=== PATIENT | female | born 1965 | race Caucasian/White ===

== ENCOUNTER → 2016-09-07 | Outpatient (CLI) | payer BC | END | disposition home or self-care (01) | LOC: LABPAT 12:04 | PROVIDERS: ATTEND Orthopaedic Surgery | DX: Z01.812 Encounter for preprocedural laboratory examination (principal) | CPT/HCPCS: 87070 ==

== ENCOUNTER → 2017-01-06 | Outpatient (CLI) | payer BC ==
[2017-01-06 18:21] LABS: Non-African American GFR(MDRD) 58 (>60 ml/min/1.73 sqM)
--- NOTE | 2017-01-06 20:49 | MR ---
EXAMINATION TYPE: MR brain wo/w con DATE OF EXAM: 01/06/2017 COMPARISON: Prior MRI 05/05/2016 HISTORY: Multiple Sclerosis TECHNIQUE: Multiplanar, multisequence images of the brain and brainstem is performed without and with IV contras t, utilizing 20 mL intravenous MultiHance . FINDINGS: Diffusion weighted images demonstrate no evidence of a recent infarct or other diffusion ab normality. There is no extra-axial fluid collection. Scattered white matter hyperintensities are ag ain noted as on prior exam. The ventricular system and cisternal spaces are normal in size and appear ance. The brain volume is age appropriate. Midline structures demonstrate normal morphology. The craniocervical junction appears within normal limits. Post contrast images demonstrate no abnormal enhancement. The dural venous sinuses appear pa tent. The visualized sinuses are clear and the globes are intact. Inflammatory change present within the left mastoid air cells is again noted. IMPRESSION: White matter demyelination is stable as compared to prior exam.
== END | disposition home or self-care (01) ==
LOC: RADMRIMAIN 17:30
PROVIDERS: ATTEND Psychiatry & Neurology Neurology
DX: G35 Multiple sclerosis (principal); G37.9 Demyelinating disease of central nervous system, unspecified
CPT/HCPCS: 82565; 70553; 36415; A9577

== ENCOUNTER → 2017-01-25 | Outpatient (CLI) | payer BC | END | disposition home or self-care (01) | LOC: LABPAT 15:52 | PROVIDERS: ATTEND Orthopaedic Surgery | DX: Z01.812 Encounter for preprocedural laboratory examination (principal) | CPT/HCPCS: 87070 ==

== ENCOUNTER 2017-01-31 09:04 | Inpatient (IN) | payer BC ==
[2017-01-24 17:21] VITALS: BMI 40.7
--- NOTE | 2017-01-30 09:26 | HP ---
HISTORY AND PHYSICAL CHIEF COMPLAINT: Right knee pain. 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 She is having pain with her normal activities. It does limit her. She has tried previous medications, injections, in addition has had previous arthroscopy on the right knee. PAST MEDICAL HISTORY: Significant for hypertension, hypothyroidism, multiple sclerosis, reflux disease, asthma. CURRENT MEDICATIONS: 1. Hydrochlorothiazide. 2. Prilosec. 3. Synthroid. 4. Wellbutrin. 5. Zoloft. 6. Copaxone. 7. Claritin. ALLERGIES: She denies drug allergies. FAMILY HISTORY: Significant for cancer. SOCIAL HISTORY: Significant for social alcohol use. REVIEW OF SYSTEMS: Sixteen-point review of systems otherwise reviewed and is noncontributory. PHYSICAL EXAMINATION: On examination, the patient is approximately 5 feet 3 inches, 230 pounds of endomorphic habitus. HEENT exam is nonfocal. Neck is supple. She has painless passive motion of the right hip. Straight leg raise is negative. Active motion right knee is -6 to 130 degrees of flexion. She is tender about the medial joint line. Collaterals are stable, Cristian's negative, Shekhar's is equivocal. She has genu varum alignment. Her distal neurovascular exam appears intact in the right lower extremity. X-rays to include weightbearing notch, lateral and Merchant views of the right knee obtained in the office show severe medial compartment narrowing. IMPRESSION: 1. Right knee severe medial compartment osteoarthrosis. 2. Increased body mass index. 3. Multiple sclerosis. RECOMMENDATIONS: I talked to the patient at length regarding her treatment options. At this point, she is having persistent pain and limitation because of her osteoarthrosis despite conservative measures. After thorough discussion, she opts to proceed with surgery. We will plan to proceed with right total knee arthroplasty. Risks and benefits were discussed at length in layman's terms. The patient underwent preoperative medical evaluation by Dr. Crow. BUD / HARVINDER: [id number] /
[~2017-01-31 09:04] MED LIST: ACETAMINOPHEN TAB 500 MG TAB PO ONE; DEXAMETHASONE SOD PHOSPHATE 10 MG/ML 1 ML VIAL IV ONE; MELOXICAM 7.5 MG TAB PO ONE; MIDAZOLAM 2 MG/2 ML VIAL IV PRN; ONDANSETRON 4 MG/2 ML VIAL IVP ONE; SCOPOLAMINE 1.5MG/72HR PATCH TRANSDERM ONE; TRANEXAMIC ACID 1,000 MG in SODIUM CHLORIDE 0.9% 100 ML IVPB ONE; ceFAZolin 2 GM in SODIUM CHLORIDE 0.9% 100 ML IVPB ONE
[2017-01-31] MEDS ORDERED: LIDOCAINE 1% 20 ML VIAL (10MG/ML) FOR IV START INTRADERMA ONE (10:07)
[2017-01-31] MEDS: LACTATED RINGERS 1,000 ML IV SCH (10:08)
[2017-01-31] MEDS ORDERED: ROPIVACAINE 246.25 MG, EPINEPHrine 0.5 MG, KETOROLAC 30 MG, cloNIDine HCL/PF 80 MCG, WA... MISCELLANE ONE ×5 (10:49)
[2017-01-31] MEDS ORDERED: fentaNYL (PF) 50 MCG/ML 2 ML AMP ONE (11:55)
[2017-01-31] MEDS ORDERED: ROCURONIUM BROMIDE 10 MG/ML 10 ML VIAL IV ONE (11:55)
[2017-01-31] MEDS ORDERED: TRANEXAMIC ACID 1,000 MG/10 ML VIAL ONE (11:55)
[2017-01-31] MEDS ORDERED: GLYCOPYRROLATE 0.2 MG/ML 2 ML VIAL ONE (11:55)
[2017-01-31] MEDS ORDERED: SODIUM CHLORIDE 0.9% 100 ML BAG ONE (11:55)
[2017-01-31] MEDS ORDERED: HYDROmorphone (PF) 1 MG/ML ONE (11:55)
[2017-01-31] MEDS ORDERED: PROPOFOL 10 MG/ML 20 ML VIAL IV ONE (11:55)
[2017-01-31] MEDS ORDERED: LIDOCAINE 1% INJ 10MG/ML (20 ML MDV) ONE (11:55)
[2017-01-31] MEDS ORDERED: MIDAZOLAM 2 MG/2 ML VIAL ONE (11:55)
[2017-01-31] MEDS ORDERED: NEOSTIGMINE 1 MG/ML 10 ML VIAL ONE (11:55)
[2017-01-31] MEDS ORDERED: ceFAZolin 3,000 MG in SODIUM CHLORIDE 0.9% IRRIGATIO 3,000 ML IRRIGATION ONE (12:29)
[2017-01-31] MEDS ORDERED: LACTATED RINGERS 1,000 ML IV ONE (13:22)
[2017-01-31] MEDS ORDERED: ALBUTEROL NEBULIZED 2.5 MG/3 ML INHALATION ONE (14:05)
[2017-01-31] MEDS ORDERED: HYDROmorphone 1 MG/ML 1 ML SYRINGE IVP PRN (14:06)
[2017-01-31] MEDS ORDERED: HYDROcodone/APAP 7.5-325MG 1 EACH TAB PO PRN (14:06)
[2017-01-31] MEDS ORDERED: ONDANSETRON 4 MG/2 ML VIAL IVP PRN (14:06)
[2017-01-31] MEDS ORDERED: NALOXONE 0.4 MG/ML 1 ML VIAL IV PRN (14:06)
[2017-01-31] MEDS ORDERED: MAGNESIUM HYDROXIDE 2,400 MG/10 ML CUP PO PRN (14:06)
[2017-01-31] MEDS: HYDROmorphone 1 MG/ML 1 ML SYRINGE IVP PRN ×3 (14:09→14:30)
--- NOTE | 2017-01-31 15:01 | XR ---
Right knee HISTORY: Postop right knee 2 views of the right knee Patient is status post right knee arthroplasty. There is an indwelling drain. Alignment is maintained . Lucency present in the soft tissues. IMPRESSION: Orthopedic follow-up.
[2017-01-31] MEDS: HYDROcodone/APAP 7.5-325MG 1 EACH TAB PO PRN (18:10)
[2017-01-31] MEDS ORDERED: ALPRAZolam 0.5 MG TAB PO PRN (19:14)
[2017-01-31] MEDS ORDERED: FLUTICASONE 50MCG/SPRAY NASAL 16GM EA NOSTRIL PRN (19:14)
[2017-01-31] MEDS: SYMBICORT 160-4.5 MCG INHALER INHALATION SCH (19:35)
[2017-01-31] MEDS: PANTOPRAZOLE 40 MG TABLET PO SCH (20:19)
[2017-01-31] MEDS: SENNOSIDES-DOCUSATE SODIUM 1 EACH TAB PO SCH (20:19)
[2017-01-31] MEDS: LISINOPRIL-HCTZ 10-12.5 MG 1 EACH TAB PO SCH (20:19)
[2017-01-31] MEDS: SERTRALINE 50 MG TAB PO SCH (20:19)
[2017-01-31] MEDS: ceFAZolin 2 GM in SODIUM CHLORIDE 0.9% 100 ML IVPB SCH (20:19)
[2017-01-31] MEDS: IPRATROPIUM-ALBUTEROL 3 ML NEB INHALATION SCH (21:28)
[2017-01-31] MEDS: traZODone HCL 50 MG TAB PO SCH (22:41)
[2017-02-01] MEDS: HYDROcodone/APAP 7.5-325MG 1 EACH TAB PO PRN ×4 (01:29→21:50)
[2017-02-01] MEDS: LACTATED RINGERS 1,000 ML IV SCH ×2 (02:23→22:44)
[2017-02-01] MEDS: HYDROmorphone 1 MG/ML 1 ML SYRINGE IVP PRN ×2 (03:45→19:16)
[2017-02-01] MEDS: ceFAZolin 2 GM in SODIUM CHLORIDE 0.9% 100 ML IVPB SCH (03:47)
[2017-02-01] MEDS: LEVOTHYROXINE 88 MCG TAB PO SCH (05:11)
[2017-02-01] MEDS: IPRATROPIUM-ALBUTEROL 3 ML NEB INHALATION SCH ×3 (06:59→19:56)
[2017-02-01] MEDS: SYMBICORT 160-4.5 MCG INHALER INHALATION SCH (07:00)
--- NOTE | 2017-02-01 07:37 | OP ---
OPERATIVE REPORT DATE OF PROCEDURE: 01/31/2017 PREOPERATIVE DIAGNOSIS: Severe right knee tricompartmental osteoarthrosis. POSTOPERATIVE DIAGNOSIS: Severe right knee tricompartmental osteoarthrosis. PROCEDURE: Right total knee opfgerimevdw-ficwgpvn-nulzqlvmv stabilized. SURGEON: Luis Colon MD SPANISH MEDICAL INTERPRETER: Raimundo VARGAS. ANESTHESIA: General with local anesthetic. PREP: DuraPrep. INDICATION FOR PROCEDURE: Patient is a 52-year-old female who presents with persistent, progressive right knee pain secondary to osteoarthrosis despite extensive conservative measures. A discussion of the risks and benefits of operative intervention versus continued conservative measures is made with the patient. She opted to proceed with surgery. Operative risks to include infection, neurovascular injury, development of blood clots, possible component loosening, possible component failure, and need for subsequent procedures was discussed. Informed consent was obtained. SPECIMENS: Bone fragments. PROCEDURE: The patient was brought to the operating room and after induction of general anesthesia, the right lower extremity was prepped and draped in a normal fashion. The tourniquet was inflated to 270 mmHg. A longitudinal incision extending 3 fingerbreadths above the superior pole of patella extending to the medial aspect of the tibial tubercle was then made. The skin and subcutaneous tissues were divided sharply. Electrocautery was used for hemostasis. A medial parapatellar arthrotomy was performed. The medial soft tissues to include the superficial and deep portions of the medial collateral ligament as well as the medial hamstring tendons were elevated subperiosteally. The patella was everted. A portion of the retropatellar fat pad was excised sharply. The knee was flexed. The anterior cruciate ligament was sacrificed. A starting hole was made in the distal femur 1 cm anterior to the posterior cruciate ligament origin. An intramedullary femoral guide was inserted, planning on 5 degrees valgus distal cut with a 9 mm distal resection. The cutting block was pinned in place. The distal cut was then made. The posterior referencing sizing guide was utilized. I felt size 5 narrow was most appropriate. The cutting block was pinned in place. Three degrees of external rotation was built into the system and verified off the transepicondylar axis and the posterior condyles. The anterior, posterior, and chamfer cuts were then made. The bone fragments were then removed. The notch block was placed. The notch cut was made with a reciprocating saw and the bone block was moved to 1 fragment. The size 5 narrow femoral component was placed and was fully seated. There was good anterior to posterior and medial to lateral fit. The distal pedicles were drilled. Attention was then paid towards preparing the proximal tibia. An extramedullary tibial guide was utilized in line with the tibia shaft and second metatarsal distally. I plan on 3 degrees of posterior slope. I planned on 2 mm resection from the medial compartment. The cutting block was pinned in place. The proximal tibia cut was then made. The bone fragment was removed in one piece. The remnants of the medial and lateral menisci were excised at the capsular junction with electrocautery. The tibia size most appropriate at size 4. The trial tibial and femoral components were placed along with a 9 mm articular surface. I was able to obtain full flexion and extension with good stability with varus and valgus stress. The tibial rotation was marked in line with the medial one-third of the tibial tubercle with electrocautery. Attention was then paid towards preparing the patella. A patellar reamer was utilized taking this down to 14 mm of bone stock. A good flush cut was made. The patella sized most appropriately at 32 mm. The pedicles were drilled. The trial component was placed. The knee was taken through range of motion. I had good patellofemoral tracking with no hands technique. The trial components were then removed. The tibia was prepared in the appropriate rotation with appropriate drill and keel punch. The posterior osteophytes of the distal femur were carefully removed with a curved osteotome. Several additional drill holes were made in the proximal medial tibia to facilitate cement interdigitation. The flexion and extension gaps were checked and felt to be symmetric. The posterior soft tissues were injected with ropivacaine. The bony surfaces were prepared with pulsatile lavage and dried. The tibial component was then cemented, placed and was fully seated. Excess cement was removed. The femoral component was cemented, placed and fully seated. Excess cement was removed. A 9 mm articular surface was placed and the knee was put in full extension. The patellar component cemented in place and was fully seated. After the cement had sufficiently hardened, the knee was again taken through range of motion. Again, I had good stability with varus and valgus stress and was able to obtain full flexion and extension. The trial articular surface was removed and the final 9 mm posterior stabilized articular surface was placed. This was fully seated. Care was taken to avoid any soft tissue interposition. Pulsatile lavage was again utilized. The medial parapatellar arthrotomy was closed with #2 Ethibond suture. The tourniquet was deflated with approximately 1 hour total tourniquet time. A deep drain was placed exiting laterally. The subcutaneous tissues were reapproximated with interrupted 2 Vicryl sutures. The skin was reapproximated with 3-0 subcuticular Stratafix suture. Skin tape and adhesive was applied. A sterile dressing was applied. The patient was awoken from general anesthesia and transferred to the recovery room in good condition. Blood loss was estimated at 50 mL. No complications were incurred. Sponge and needle counts were correct at the end of the case. IMPLANTS USED: DePuy Wedge Busterune size 5 cemented femoral component, size 4 cemented tibial component, 9 mm articular surface, 32 mm cemented patellar component. This is a posterior stabilized implant. MMODL / IJN: [id number] /
[2017-02-01 07:46] LABS: Basophils % (A) 0 %; CH 26.6; CHCM 32.5; Eosinophils # (A) 0.2 k/uL (0-0.7); Eosinophils % (A) 1 %; HCT 30.1 % (34.0-46.0); HDW 2.52; HGB 9.7 gm/dL (11.4-16.0); Luc # (Auto) 0.21; Luc % (Auto) 2; Lymphocytes # (A) 2.1 k/uL (1.0-4.8); Lymphocytes % (A) 18 %; MCH 26.5 pg (25.0-35.0); MCHC 32.2 g/dL (31.0-37.0); MCV 82.3 fL (80.0-100.0); Mean Platelet Volume 9.9; Monocytes # (A) 0.8 k/uL (0-1.0); Monocytes % (A) 6 %; Neutrophils # (A) 8.6 k/uL (1.3-7.7); Neutrophils % (A) 72 %; RBC 3.65 m/uL (3.80-5.40); RDW 14.8 % (11.5-15.5); WBC 11.9 k/uL (3.8-10.6); WBC (Perox) 12.47
[2017-02-01] MEDS ORDERED: FAMOTIDINE 20 MG TAB PO SCH (09:00)
[2017-02-01] MEDS: PANTOPRAZOLE 40 MG TABLET PO SCH ×2 (09:05→17:27)
[2017-02-01] MEDS: LORATADINE 10 MG TAB PO SCH (09:06)
[2017-02-01] MEDS: RIVAROXABAN 10 MG TAB PO SCH (09:06)
[2017-02-01] MEDS: hydrOXYzine PAMOATE 25 MG CAP PO PRN ×3 (09:07→21:50)
--- NOTE | 2017-02-01 09:07 | CONS ---
CONSULTATION DATE OF CONSULTATION: 01/31/17 REASON FOR CONSULTATION: Medical management requested by Dr. Colon. CONSULTATION: This is a pleasant 52-year-old patient who has got a history of multiple sclerosis that is under control. Anxiety depression that is controlled and has a history of COPD with smoking on and off. Currently during E cigarettes. The patient is status post right total knee arthroplasty. Patient has got a Hemovac in place. Pain is controlled. No nausea, vomiting, no chest pain. The patient's mother and at the bedside. REVIEW OF SYSTEMS: CONSTITUTIONAL: None. HEENT none. Respiratory: Occasional wheezing and cough. Cardiovascular: None. Gastrointestinal: None. Genitourinary: None. Omrris catheter in place. Dermatological, hematologic, lymphatic: None. Psychiatry: Anxiety and depression. Neurological: Emesis controlled. PAST MEDICAL HISTORY: COPD, multiple sclerosis, anxiety and depression, osteoarthritis. PAST SURGICAL HISTORY: Cholecystectomy, hernia repair. Wrist surgery, right knee surgery. SOCIAL HISTORY: The patient smoked on and off for 30 years. Now uses E cigarettes. Lives with her . FAMILY HISTORY: Cancer. MEDICATIONS: 1. Desyrel 50, 75 mg p.o. q.h.s. 2. Wellbutrin XL 150 mg a day. 3. Zoloft 50 mg q.h.s. 4. Dulera 200/5 2 puffs b.i.d. 5. Magnesium oxide 250 mg a day. 6. Zestoretic 03/02.5, 1 tab, p.o. q.h.s. 7. Synthroid 125 mcg p.o. daily. 8. Prevacid 30 mg p.o. b.i.d. 9. 40 mg subcu Monday, Monday and Monday. 10.Flonase 2 sprays each nostril daily p.r.n. 11.Ruthy 180 mg p.o. daily. 12.Vitamin D3 5000 units p.o. daily. 13.Aspirin 81 mg p.o. q.h.s. 14.Ventolin 2 puffs b.i.d. p.r.n. 15.Xanax 0.5 p.o. b.i.d. p.r.n. 16.Xarelto 10 mg p.o. daily. ALLERGIES: None. EXAMINATION: On examination, temperature 97.3, pulse 89, respiratory rate 16, blood pressure 130/81, pulse ox 92% on 2 L. GENERAL: Well built, BMI 40.7, sitting up, not in distress. EYES: Pupils equal, conjunctivae normal. HEENT: Oral cavity normal. Neck: JVD not raised. Mass not palpable. Respiratory effort: Lungs slightly decreased breath sounds. Cardiovascular first and second sounds normal. No edema. ABDOMEN: Soft, nontender. Liver and spleen not palpable. Lymphatics: No lymph nodes palpable in the neck or axilla. Psychiatry: The patient is able to converse but sometimes she is rather really vague about things. Neurological: Pupils equal. Cranial nerves grossly intact. Power and sensation grossly intact. Extremities: Right knee in a dressing. Hemovac in place. INVESTIGATIONS: No labs noted. ASSESSMENT: 1. Right total knee arthroplasty with a Hemovac in place. 2. Chronic multiple sclerosis, rather stable. 3. Anxiety/depression not otherwise specified. 4. Primary osteoarthritis of the joints including the left knee. 5. Morbid obesity. Body mass index of 40.7. 6. Hypothyroidism. PLAN: Home medication will be resumed. The patient is on Xarelto for DVT prophylaxis. Care was discussed with the patient and family at the bedside. Questions were answered. Thank you Dr. Colon. BUD / GIOVANNAN: [id number] /
[2017-02-01] MEDS: buPROPion XL 150 MG TAB.ER.24H PO SCH (09:10)
--- NOTE | 2017-02-01 11:52 | P.PN ---
Subjective Principal diagnosis: Status post right total knee arthroplasty Patient is seen today resting in her hospital bed, she appears comfortable. She notes some discomfort in the right knee. She denies any lightheadedness, headaches, chest pain, shortness of breath, fever or chills. Objective - Vital Signs Vital signs: Vital Signs Temp 97.6 F 02/01/17 11:31 Pulse 60 02/01/17 11:31 Resp 17 02/01/17 11:31 BP 114/58 02/01/17 11:31 Pulse Ox 96 02/01/17 11:31 Intake & Output 01/31/17 02/01/17 02/01/17 18:59 06:59 18:59 Intake Total 1851 100 Output Total 440 2250 450 Balance 1411 -2150 -450 Intake: IV 1851 Intake, IV Titration 100 Amount ceFAZolin 2 gm In Sodium 100 Chloride 0.9% 100 ml @ 100 mls/hr IVPB Q8H PENDING SALE TO [facility] Rx#:[id number] Output: Drainage 90 250 Right Knee 90 250 Urine 300 2000 450 Uretheral (Morris) 450 Estimated Blood Loss 50 Other: Voiding Method Indwelling Catheter Indwelling Catheter - Exam Right lower extremity: Incision is clean, dry, and intact. Minimal soft tissue swelling present around the knee. Calf is soft, no tenderness with palpation. Plantar flexion, dorsiflexion, EHL, FHL are intact. Sensory exam to light touch throughout the extremities intact, dorsal pedis pulses 2+. - Labs CBC & Chem 7: 02/01/17 06:35 Labs: Abnormal Lab Results - Last 24 Hours (Table) 02/01/17 Range/Units 06:35 WBC 11.9 H (3.8-10.6) k/uL RBC 3.65 L (3.80-5.40) m/uL Hgb 9.7 L (11.4-16.0) gm/dL Hct 30.1 L (34.0-46.0) % Neutrophils # 8.6 H (1.3-7.7) k/uL Assessment and Plan Plan: Assessment: 1. Postop day #1 status post right total knee arthroplasty Plan: 1. Pain control, continue use of oral medication 2. Daily dressing changes/ice and elevate 3. Continue therapy and use of CPM 4. Encourage incentive spirometer 5. GI and DVT prophylaxis, continue Xarelto 10 mg 6. Medical recommendations 7. Discharge planning: Patient may be discharged home today, likely tomorrow Time with Patient: Less than 30
--- NOTE | 2017-02-01 11:54 | P.DS ---
Providers Date of admission: 01/31/17 09:04 Expected date of discharge: 02/02/17 Attending physician: Luis Colon Consults: 01/31/17 14:09 Consult Physician Routine Consulting Provider: Anthony Mccain Consult Reason/Comments: Medical Management Do you want consulting provider notified?: Yes Primary care physician: Stated None Hospital Course: Date of admission: 01/31/2017 Date of discharge: [02/02/2015 Admission diagnosis: Status post right total knee arthroplasty Discharge diagnosis: Same Attending physician: Dr. Colon Surgical procedures: Right total knee arthroplasty Brief history: Patient is a 52-year-old female with a history of progressive primary right knee osteoarthritis. At this point patient has failed conservative treatment measures and has opted to proceed with a elective right total knee arthroplasty. Hospital course: Details of patient's surgery can be found in operative report. Patient tolerated the procedure well and was subsequently transported to orthopedic floor. Patient's orthopeidc and medical care was provided daily. Patient had daily laboratory tests performed for evaluation of overall blood counts. Patient had daily physical therapy to include strengthening range of motion as well as education with walker ambulation. Patient had daily CPM usage as part of their physical therapy program. Patient was treated with Xarelto for their postoperative DVT prophylaxis during their inpatient stay. Patient was noted to have a relatively uneventful postoperative course. Patient reported satisfactory pain control with oral pain medications by postoperative day 0. Patient showed satisfactory progress with physical therapy. Patient moved steadily through the program and had no difficulty meeting the goals by postoperative day 2. Given patient's otherwise satisfactory course and having met physical therapy goals, plan is to discharge patient home on postoperative day 2. Discharge condition/disposition: Patient will be discharged home in stable condition. Discharge medications: Instructions are given on resumption of patient's normal daily medications per primary care recommendation, in addition patient will be prescribed [place] 7.5mg/325mg, Tramadol 50mg, Vistaril 25mg, Colace 100mg, Pepcid 20mg, Xarelto 10mg. Discharge instructions: 1. Wound care and infection precautions, [keep incision dry and covered while showering], no lotions, creams, moisturizers. No soaking, tubs, pools, hottubs. Do not scrub over the incision. 2. Weight-bear [as tolerated] with walker / cane until follow-up. 3. Ice and elevate when necessary. Do not exceed 20 minutes per hour with ice pack. 4. Utilize compression sleeve until seen at first follow up appointment. 5. Visiting nursing care. 6. Home physical therapy [including home CPM]. 7. Pain meds and anticoagulants per prescription. 8. Pain medication has potential to cause constipation. Increase oral fluid and fiber intake. Contact primary care provider if you have not had a bowel movement within 48 hours after discharge 9. No anti-inflammatory medication until discussed at first post operative visit, this including Motrin, Aleve, Mobic, Diclofenac. 10. Follow up in office at 2 weeks postop with Wilbur Russ PA-C 11. Follow up with your primary care doctor 7-10 days after discharge. 12. Contact [facility] with any questions, . Procedures: Right total knee arthroplasty Patient Condition at Discharge: Good Plan - Discharge Summary New Discharge Prescriptions: New Rivaroxaban [Xarelto] 10 mg PO DAILY #12 tab Docusate [Colace] 100 mg PO DAILY #30 capsule Famotidine [Pepcid] 20 mg PO DAILY #30 tablet HYDROcodone/APAP 7.5-325MG [[place] 7.5] 1 - 2 each PO Q6HR PRN #60 tab PRN Reason: Pain hydrOXYzine PAMOATE [Vistaril] 25 mg PO Q6HR #60 capsule traMADol HCl [Ultram] 50 mg PO Q6H PRN #40 tab PRN Reason: Pain No Action traZODone HCL [Desyrel] 50 - 75 mg PO HS ALPRAZolam 0.5 mg PO BID PRN PRN Reason: Anxiety buPROPion XL [Wellbutrin XL] 150 mg PO DAILY Mometasone/Formoterol [Dulera 200 Mcg/5 Mcg Inhaler] 2 puff INHALATION RT-BID Albuterol Sulfate [Ventolin HFA] 2 puff INHALATION BID PRN PRN Reason: Shortness Of Breath Sertraline HCl [Zoloft] 50 mg PO HS Lisinopril-Hctz 10-12.5 mg [Zestoretic 10-12.5] 1 tab PO HS Levothyroxine Sodium [Synthroid] 175 mcg PO DAILY Lansoprazole [Prevacid] 30 mg PO BID Cholecalciferol [Vitamin D3] 5,000 unit PO DAILY Magnesium Oxide [Mag-Ox] 250 mg PO DAILY Fexofenadine HCl [Ruthy Allergy] 180 mg PO DAILY Glatiramer Acetate [Copaxone] 40 mg SQ MOWEFR Fluticasone Nasal [place] [Flonase Nasal [place]] 2 spr EA NOSTRIL DAILY PRN PRN Reason: allergy sx Aspirin [Adult Low Dose Aspirin EC] 81 mg PO HS Discharge Medication List ALPRAZolam 0.5 mg PO BID PRN 09/26/15 [History] Albuterol Sulfate [Ventolin HFA] 2 puff INHALATION BID PRN 09/26/15 [History] Mometasone/Formoterol [Dulera 200 Mcg/5 Mcg Inhaler] 2 puff INHALATION RT-BID [History] buPROPion XL [Wellbutrin XL] 150 mg PO DAILY 09/26/15 [History] traZODone HCL [Desyrel] 50 - 75 mg PO HS 09/26/15 [History] Sertraline HCl [Zoloft] 50 mg PO HS 09/29/15 [History] Levothyroxine Sodium [Synthroid] 175 mcg PO DAILY 03/31/16 [History] Lisinopril-Hctz 10-12.5 mg [Zestoretic 10-12.5] 1 tab PO HS 03/31/16 [History] Aspirin [Adult Low Dose Aspirin EC] 81 mg PO HS 01/24/17 [History] Cholecalciferol [Vitamin D3] 5,000 unit PO DAILY 01/24/17 [History] Fexofenadine HCl [Ruthy Allergy] 180 mg PO DAILY 01/24/17 [History] Fluticasone Nasal [place] [Flonase Nasal [place]] 2 spr EA NOSTRIL DAILY PRN [History] Glatiramer Acetate [Copaxone] 40 mg SQ MOWEFR 01/24/17 [History] Lansoprazole [Prevacid] 30 mg PO BID 01/24/17 [History] Magnesium Oxide [Mag-Ox] 250 mg PO DAILY 01/24/17 [History] Rivaroxaban [Xarelto] 10 mg PO DAILY #12 tab 01/31/17 [Rx] Docusate [Colace] 100 mg PO DAILY #30 capsule 02/01/17 [Rx] Famotidine [Pepcid] 20 mg PO DAILY #30 tablet 02/01/17 [Rx] HYDROcodone/APAP 7.5-325MG [[place] 7.5] 1 - 2 each PO Q6HR PRN #60 tab 02/01/17 [ Rx] hydrOXYzine PAMOATE [Vistaril] 25 mg PO Q6HR #60 capsule 02/01/17 [Rx] traMADol HCl [Ultram] 50 mg PO Q6H PRN #40 tab 02/01/17 [Rx] Follow up Appointment(s)/Referral(s): Raimundo Russ PAC [PHYSICIAN PHOTOGRAMMETRIC SURVEYOR] - 02/17/17 1:30 pm None,Stated [Primary Care Provider] - 10 Days (Please call your Primary Care Provider for follow up appointment. Thank you.) Beto Lamb, [REFERRING] - Patient Instructions/Handouts: Knee Replacement (DC) Activity/Diet/Wound Care/Special Instructions: Walker Through [facility] [phone] Orthopedic Discharge Instructions: 1. Wound care and infection precautions, keep incision dry and covered while showering, no lotions, creams, moisturizers. No soaking, pools, hot tubs. Do not scrub over incision. 2. Weight-bear as tolerated with walker / cane until follow-up. 3. Ice and elevate when necessary. Do not exceed 20 minutes per hour with ice pack. 4. Utilize compression sleeve until seen at first follow up appointment. 5. Visiting nursing care. 6. Home physical therapy including home CPM. 7. Pain meds and anticoagulants per prescription. 8. Pain medication has potential to cause constipation. Increase oral fluid and fiber intake. Contact primary care provider if you have not had a bowel movement within 48 hours after discharge. 9. No anti-inflammatory medication until discussed at first post operative visit, this including Motrin, Aleve, Mobic, Diclofenac. 10. Follow up in office at 2 weeks postop with Wilbur Russ PA-C 11. Follow up with your primary care doctor 7-10 days after discharge. 12. Contact [facility] with any questions, . Discharge Disposition: HOME WITH HOME HEALTH SERVICES
[2017-02-01] MEDS: MAGNESIUM OXIDE 400 MG TAB PO SCH (13:13)
[2017-02-01] MEDS: CHOLECALCIFEROL 1,000 UNIT TAB PO SCH (13:13)
--- NOTE | 2017-02-01 14:49 | P.PN ---
Progress Note - Text DATE OF SERVICE: 02/01/2017 PRESENTING COMPLAINT: Osteoarthritis of the right knee HISTORY OF PRESENT ILLNESS: 52-year-old female status post right total knee arthroplasty. INTERVAL HISTORY: 02/01/2017: Patient up with a walker with physical therapy, getting around well. Tolerating her diet eating 75 -100% of her meals, pains well controlled, ambulatory with assistance and walker,last BM, prior to surgery. REVIEW OF SYSTEMS: Done for constitutional ,cardiovascular, GI, pulmonary, musculoskeletal, integument with relevant findings as above. CURRENT MEDICATIONS [place], Xanax, Wellbutrin 150 mg by mouth daily, budesonide formoterol 160/4.5 g inhaler, Zestoretic 10-12.5 mg by mouth at bedtime, Vistaril 25 mg by mouth every 4 hours, Synthroid 176 g by mouth daily - PHYSICAL EXAM VITAL SIGNS: Temp temperature 98.3, pulse 77, respiratory rate 14, blood pressure 114/58, oxygen saturation 96% on room air. GENERAL APPEARANCE: Up with physical therapy, not in distress. EYES: Pupils equal. Conjunctiva normal. NECK: JVD not raised. Mass not palpable. RESPIRATORY: Respiratory effort normal. Lungs clear to auscultation. CARDIOVASCULAR: First and second sounds normal. No edema. ABDOMEN: Soft. Liver and spleen not palpable. No tenderness. No mass palpable. PSYCHIATRY: Alert and oriented x3. Mood and affect normal. INTEGUMENT: Right knee incision covered with a dry surgical dressing. Mild swelling noted INVESTIGATIONS: White blood cell count 11.9, hemoglobin 9.7 ASSESSMENT: -right total knee arthroplasty with Hemovac in place. -Chronic multiple sclerosis, stable. -Anxiety/depression not otherwise specified. -Primary osteoporosis of joints including the left knee. -Morbid obesity. Body mass index of 40.7. -Hypothyroidism. PLAN: Xarelto for DVT prophylaxis, Hemovac to be removed by orthopedic surgery later today, patient will likely discharge today. PLACER MINER statement: Patient was seen and examined by nurse practitioner Mary Soto and all elements of the case discussed with attending Dr. Mccain
--- NOTE | 2017-02-01 17:13 | PN ---
PROGRESS NOTE DATE OF SURGERY: 02/01/17 ATTENDING NOTE: This patient was seen and examined by me. I discussed this with my nurse practitioner, Ms. Soto. The patient's pain is better controlled. Did work with therapy. No chest pain or short of breath. No nausea. Did tolerating a diet. PHYSICAL EXAMINATION: Lungs are clear. CARDIOVASCULAR: First and second sounds normal. INVESTIGATION: Hemoglobin 9.7. ASSESSMENT: 1. Right total knee arthroplasty. 2. Acute blood-loss anemia as expected from surgery. PLAN: Care was discussed with the patient. MMODL / IJN: [id number] /
[2017-02-01] MEDS ORDERED: Glatiramer Acetate [Copaxone] 40 MG SQ SCH (18:00)
[2017-02-01] MEDS: DULERA INHALATION SCH (19:17)
[2017-02-01] MEDS: SENNOSIDES-DOCUSATE SODIUM 1 EACH TAB PO SCH (20:41)
[2017-02-01] MEDS: SERTRALINE 50 MG TAB PO SCH (20:41)
[2017-02-01] MEDS: LISINOPRIL-HCTZ 10-12.5 MG 1 EACH TAB PO SCH (20:41)
[2017-02-01] MEDS: traZODone HCL 50 MG TAB PO SCH (20:46)
[2017-02-02] MEDS: traMADol 50 MG TAB PO PRN ×3 (00:19→14:14)
[2017-02-02 01:48] VITALS: RESP 16
[2017-02-02] MEDS: HYDROcodone/APAP 7.5-325MG 1 EACH TAB PO PRN ×2 (04:56→11:00)
[2017-02-02] MEDS: hydrOXYzine PAMOATE 25 MG CAP PO PRN ×2 (04:57→11:00)
[2017-02-02] MEDS: LEVOTHYROXINE 88 MCG TAB PO SCH (05:51)
[2017-02-02 07:45] VITALS: BP 123/75; PULSE 67; TEMP 97.6
[2017-02-02] MEDS: DULERA INHALATION SCH (07:54)
[2017-02-02] MEDS: IPRATROPIUM-ALBUTEROL 3 ML NEB INHALATION SCH ×2 (07:57→12:53)
[2017-02-02] MEDS: LORATADINE 10 MG TAB PO SCH (08:19)
[2017-02-02] MEDS: buPROPion XL 150 MG TAB.ER.24H PO SCH (08:19)
[2017-02-02] MEDS: RIVAROXABAN 10 MG TAB PO SCH (08:19)
[2017-02-02] MEDS: PANTOPRAZOLE 40 MG TABLET PO SCH (08:19)
[2017-02-02] MEDS: CHOLECALCIFEROL 1,000 UNIT TAB PO SCH (11:00)
[2017-02-02] MEDS: MAGNESIUM OXIDE 400 MG TAB PO SCH (11:01)
--- NOTE | 2017-02-02 11:51 | P.PN ---
Subjective Principal diagnosis: Status post right total knee arthroplasty Patient is seen today resting in her hospital bed, she appears comfortable. Patient did stay another night, she is ready to go home today She denies any lightheadedness, headaches, chest pain, shortness of breath, fever or chills. Objective - Vital Signs Vital signs: Vital Signs Temp 97.6 F 02/02/17 07:00 Pulse 67 02/02/17 07:00 Resp 16 02/02/17 07:00 BP 123/75 02/02/17 07:00 Pulse Ox 97 02/02/17 07:00 Intake & Output 02/01/17 02/02/17 02/02/17 18:59 06:59 18:59 Intake Total 200 Output Total 1150 400 Balance -1150 -200 Intake: Oral 200 Output: Urine 1150 400 Uretheral (Morris) 450 Other: Voiding Method Toilet Toilet # Voids 2 2 - Exam Right lower extremity: Incision is clean, dry, and intact. Minimal soft tissue swelling present around the knee. Calf is soft, no tenderness with palpation. Plantar flexion, dorsiflexion, EHL, FHL are intact. Sensory exam to light touch throughout the extremities intact, dorsal pedis pulses 2+. - Labs CBC & Chem 7: 02/01/17 06:35 Assessment and Plan Plan: Assessment: 1. Postop day #2 status post right total knee arthroplasty Plan: 1. Pain control, continue use of oral medication 2. Daily dressing changes/ice and elevate 3. Continue therapy and use of CPM 4. Encourage incentive spirometer 5. GI and DVT prophylaxis, continue Xarelto 10 mg 6. Medical recommendations 7. Discharge planning: Discharging patient home today Time with Patient: Less than 30
--- NOTE | 2017-02-02 13:50 | P.PN ---
Subjective 52-year-old female status post right total knee arthroplasty. Clinically doing well no overnight events and patient is being discharged today and patient is medically stable to be discharged. Objective - Vital Signs Vital signs: Vital Signs Temp 97.6 F 02/02/17 07:00 Pulse 67 02/02/17 07:00 Resp 16 02/02/17 07:00 BP 123/75 02/02/17 07:00 Pulse Ox 97 02/02/17 07:00 Intake & Output 02/01/17 02/02/17 02/02/17 18:59 06:59 18:59 Intake Total 200 Output Total 1150 400 Balance -1150 -200 Intake: Oral 200 Output: Urine 1150 400 Uretheral (Morris) 450 Other: Voiding Method Toilet Toilet # Voids 2 2 - Exam PHYSICAL EXAMINATION: GENERAL: The patient is alert and oriented x3, not in any acute distress. Well developed, well nourished. HEENT: Pupils are round and equally reacting to light. EOMI. No scleral icterus. No conjunctival pallor. Normocephalic, atraumatic. No pharyngeal erythema. No thyromegaly. CARDIOVASCULAR: S1 and S2 present. No murmurs, rubs, or gallops. PULMONARY: Chest is clear to auscultation, no wheezing or crackles. ABDOMEN: Soft, nontender, nondistended, normoactive bowel sounds. No palpable organomegaly. MUSCULOSKELETAL: Deferred to orthopedic surgery EXTREMITIES: No cyanosis, clubbing, or pedal edema. NEUROLOGICAL: Gross neurological examination did not reveal any focal deficits. SKIN: No rashes. - Labs CBC & Chem 7: 02/01/17 06:35 Assessment and Plan Plan: -right total knee arthroplasty -Chronic multiple sclerosis, stable. -Anxiety/depression not otherwise specified. -Primary osteoporosis of joints including the left knee. -Morbid obesity. Body mass index of 40.7. -Hypothyroidism. Her medication reconciliation was reviewed and appropriate patient is medically stable to be discharged
== END 2017-02-02 14:42 | disposition home health service (06) | DRG 470 ==
LOC: 2ORMAIN 09:04 → 3SUR 13:48
PROVIDERS: ADMIT Orthopaedic Surgery; ATTEND Orthopaedic Surgery
PROC: 0SRC0J9 Replacement of Right Knee Joint with Synthetic Substitute, Cemented, Open Approach (ICD-10-PCS; principal; 2017-01-31 10:30)
DX: M17.11 Unilateral primary osteoarthritis, right knee (principal); Z68.41 Body mass index [BMI] 40.0-44.9, adult; I10 Essential (primary) hypertension; G35 Multiple sclerosis; M25.761 Osteophyte, right knee; E03.9 Hypothyroidism, unspecified; K21.9 Gastro-esophageal reflux disease without esophagitis; J45.909 Unspecified asthma, uncomplicated; F41.9 Anxiety disorder, unspecified; F32.9 Major depressive disorder, single episode, unspecified; J44.9 Chronic obstructive pulmonary disease, unspecified; F17.200 Nicotine dependence, unspecified, uncomplicated; E66.01 Morbid (severe) obesity due to excess calories; Z90.49 Acquired absence of other specified parts of digestive tract; Z87.19 Personal history of other diseases of the digestive system; Z80.9 Family history of malignant neoplasm, unspecified; Z79.82 Long term (current) use of aspirin; Z79.899 Other long term (current) drug therapy; Z79.02 Long term (current) use of antithrombotics/antiplatelets
CPT/HCPCS: 81025; 85025; 88300; 94640; 94760

== ENCOUNTER → 2017-03-10 | Outpatient (CLI) | payer BC ==
[2017-03-10 15:48] LABS: Potassium 4.2 mmol/L (3.5-5.1)
[2017-03-10 15:51] LABS: Partial Thromboplastin Time 22.8 sec (22.0-30.0); Prothrombin Time 10.3 sec (9.0-12.0)
[2017-03-10 16:19] LABS: Basophils # (A) 0.1 k/uL (0-0.2); Basophils % (A) 1 %; CH 25.3; Eosinophils # (A) 0.4 k/uL (0-0.7); Eosinophils % (A) 5 %; HCT 36.2 % (34.0-46.0); HDW 2.72; HGB 10.8 gm/dL (11.4-16.0); Hypochromasia Marked; Luc # (Auto) 0.16; Luc % (Auto) 2; Lymphocytes # (A) 2.3 k/uL (1.0-4.8); Lymphocytes % (A) 31 %; MCH 25.4 pg (25.0-35.0); MCV 84.7 fL (80.0-100.0); Mean Platelet Volume 8.9; Monocytes # (A) 0.5 k/uL (0-1.0); Monocytes % (A) 6 %; Neutrophils # (A) 4.1 k/uL (1.3-7.7); Neutrophils % (A) 55 %; RBC 4.27 m/uL (3.80-5.40); RDW 13.3 % (11.5-15.5); WBC 7.4 k/uL (3.8-10.6); WBC (Perox) 7.34
== END | disposition home or self-care (01) ==
LOC: LABPAT 14:57
PROVIDERS: ATTEND Family Medicine
DX: Z01.812 Encounter for preprocedural laboratory examination (principal); M17.12 Unilateral primary osteoarthritis, left knee
CPT/HCPCS: 36415; 80051; 85025; 85610; 85730; 87070

== ENCOUNTER 2017-03-14 09:17 | Inpatient (IN) | payer BC ==
[2017-03-08 11:27] VITALS: BMI 40.7
--- NOTE | 2017-03-13 09:48 | HP ---
HISTORY AND PHYSICAL CHIEF COMPLAINT: Left knee pain. 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 She notes she is significantly limited because of pain. PAST MEDICAL HISTORY: Significant for hypertension, multiple sclerosis, hypothyroidism, and arthritis. PAST SURGICAL HISTORY: Significant for recent right total knee arthroplasty and previous bilateral knee arthroscopies. CURRENT MEDICATIONS: 1. Claritin. 2. Copaxone. 3. Hydrochlorothiazide. 4. Prilosec. 5. Synthroid. 6. Wellbutrin. 7. Zoloft. ALLERGIES: She denies drug allergies. FAMILY HISTORY: Significant for cancer. SOCIAL HISTORY: Significant for social alcohol use. REVIEW OF SYSTEMS: Sixteen-point review of systems otherwise reviewed and is noncontributory. PHYSICAL EXAMINATION: On examination, the patient is approximately 5 feet 3 inches, 230 pounds of endomorphic habitus. HEENT exam is nonfocal. Neck is supple. She has painless passive motion of her left hip. Straight leg raise is negative. Active motion of her left knee -6 to 120 degrees of flexion. She is tender about the medial joint line. She has a mild effusion. Collaterals are stable, Cristian's negative, Shekhar's is equivocal. She has genu varum alignment. Her distal neurovascular exam appears to be intact in the left lower extremity. Previous weightbearing notch, lateral and Merchant views of the left knee obtained in the office show severe medial compartment osteoarthrosis. IMPRESSION: 1. Left knee severe medial compartment osteoarthrosis. 2. Increased body mass index. 3. History of multiple sclerosis. RECOMMENDATIONS: I talked to the patient at length regarding her treatment options. At this point, she is quite symptomatic and opts to proceed with surgery. We will plan to proceed with left total knee arthroplasty. Risks and benefits were discussed at length in layman's terms. We will likely institute DVT prophylaxis postoperatively. MMODL / IJN: [id number] /
[2017-03-14] MEDS ORDERED: ROPIVACAINE 246.25 MG, EPINEPHrine 0.5 MG, KETOROLAC 30 MG, cloNIDine HCL/PF 80 MCG, WA... MISCELLANE ONE ×5 (10:05)
[2017-03-14] MEDS: LACTATED RINGERS 1,000 ML IV SCH (10:25)
[2017-03-14] MEDS ORDERED: SUCCINYLCHOLINE CHLORIDE 100 MG/5 ML SYR IV ONE (10:51)
[2017-03-14] MEDS ORDERED: LIDOCAINE 1% INJ 10MG/ML (20 ML MDV) ONE (10:51)
[2017-03-14] MEDS ORDERED: ceFAZolin 3,000 MG in SODIUM CHLORIDE 0.9% IRRIGATIO 3,000 ML IRRIGATION ONE (10:51)
[2017-03-14] MEDS ORDERED: PROPOFOL 10 MG/ML 20 ML VIAL IV ONE (10:51)
[2017-03-14] MEDS ORDERED: TRANEXAMIC ACID 1,000 MG/10 ML VIAL ONE (10:51)
[2017-03-14] MEDS ORDERED: MIDAZOLAM 2 MG/2 ML VIAL ONE (10:51)
[2017-03-14] MEDS ORDERED: SODIUM CHLORIDE 0.9% 100 ML BAG ONE (10:51)
[2017-03-14] MEDS ORDERED: HYDROmorphone (PF) 1 MG/ML ONE (10:51)
[2017-03-14] MEDS ORDERED: fentaNYL (PF) 50 MCG/ML 2 ML AMP ONE (10:51)
[2017-03-14] MEDS ORDERED: LACTATED RINGERS 1,000 ML IV ONE (12:44)
[2017-03-14] MEDS ORDERED: HYDROcodone/APAP 7.5-325MG 1 EACH TAB PO PRN (12:54)
[2017-03-14] MEDS ORDERED: ACETAMINOPHEN TAB 325 MG TAB PO PRN (12:54)
[2017-03-14] MEDS ORDERED: HYDROmorphone 0.5 MG/0.5 ML SYRINGE IVP PRN (12:54)
[2017-03-14] MEDS ORDERED: MAGNESIUM HYDROXIDE 2,400 MG/10 ML CUP PO PRN (12:54)
[2017-03-14] MEDS ORDERED: NALOXONE 0.4 MG/ML 1 ML VIAL IV PRN (12:54)
[2017-03-14] MEDS ORDERED: ONDANSETRON 4 MG/2 ML VIAL IVP PRN (12:54)
[2017-03-14] MEDS ORDERED: HYDROmorphone 1 MG/ML 1 ML SYRINGE IVP PRN (12:54)
--- NOTE | 2017-03-14 13:14 | P.OP ---
Date of Procedure: 03/14/17 Preoperative Diagnosis: Left knee severe tricompartmental osteoarthrosis-primary Postoperative Diagnosis: Same Procedure(s) Performed: Left total knee arthroplasty-posterior stabilized-cemented Implants: Depuy Attune size 4 cemented femoral component/size 3 cemented tibial component/ 9 mm articular surface/32 mm cemented patellar component. This is a posterior stabilized implant. Anesthesia: GETA, local Surgeon: Luis Colon Bottom Finisher #1: Raimundo Russ Estimated Blood Loss (ml): 75 Pathology: other (Bone fragments) Condition: stable Disposition: PACU Indications for Procedure: The patient's a 52-year-old female who presents with progressive left knee pain secondary to osteoarthrosis despite extensive conservative treatment. A discussion of the risks and benefits of operative intervention versus continued conservative measures was made with the patient. She opted to proceed with surgery. Operative risks to include infection, neurovascular injury, development of blood clots, possible component loosening, possible component failure and need for subsequent procedures was discussed. Due to her increased body mass index, she is at higher risk for complications overall. Informed consent was obtained. Operative Findings: As below Description of Procedure: The patient was brought to the operating room, and after induction of general anesthesia the left lower extremity was prepped and draped in a normal fashion. The tourniquet was inflated to 270 mmHg. A longitudinal incision extending 3 finger breaths above the superior pole of the patella extending to the medial aspect the tibial tubercle was then made. The skin and subcutaneous tissues were divided sharply. A medial parapatellar arthrotomy was performed. The medial soft tissues to include the superficial and deep portions of the medial collateral ligament along with the medial hamstring tendons were elevated subperiosteally. The patella was everted. A portion of the retropatellar fat pad was excised sharply. Blunt retractors were placed. A starting hole was made in the distal femur 1 cm anterior to the posterior cruciate ligament origin. An intramedullary guide was gently inserted planning on 5 valgus distal cut with 9 mm distal resection. The cutting block was pinned in place. The distal cut was then made. The posterior referencing sizing guide was utilized. I felt size 4 was most appropriate. 3 of external rotation was built into the system and verified off the trans-epicondylar axis and the posterior condyles. The cutting block was pinned in place. The anterior, posterior, and chamfer cuts were then made. The bone fragments were removed. The notch guide was placed and a reciprocating saw was used to make the notch cut. The bone was removed in one fragment. The trial size 4 femoral component was placed and there is good anterior to posterior and medial to lateral fit. The distal peg holes were drilled. The trial component was removed. An extra medullary tibial guide was utilized in line with tibial shaft and second metatarsal distally. A 0 posterior slope cutting block was utilized. I planned on 2 mm resection from the medial compartment. The cutting block was pinned in place. The proximal tibial cut was then made. The bone was removed in one fragment. I felt this was inadequate resection therefore an additional 2 mm was resected utilizing the cutting block. The remnants of the medial and lateral menisci were excised at the capsular junction with electrocautery. The tibia sized most appropriately at size 3. The trial femoral and tibial components were placed along with a 9 mm articular surface. I was able to obtain full flexion and extension with good stability with varus and valgus stress. After several flexion and extension cycles, the tibial rotation was marked in line with the medial one third of the tibial tubercle with electrocautery. The trial components then removed. A patella reamer was utilized taking this down to 14 mm of bone stock. A good flush cut was made. The patella sized most appropriately 32 mm. The peg holes were drilled. The trial components placed. The knee was taken through range of motion. I had good patellofemoral tracking with no hands technique. The trial components were then removed. The tibia was prepared in the appropriate rotation with appropriate drill and keel punch. The posterior osteophytes off the distal femur were carefully removed with a curved osteotome. The flexion and extension gaps were checked and felt to be symmetric. The posterior soft tissues were injected with ropivacaine. The bony surfaces were prepared with pulsatile lavage and dried. The tibial component was then cemented in placed and was fully seated. Excess cement was removed. The femoral component was cemented placed and was fully seated. Excess cement was removed. The trial 9 mm articular surface was placed and the knee was put in full extension. The patella component was cemented place. After the cement had sufficiently hardened, the knee was again taken through range of motion. Again there is good stability in flexion and extension with varus and valgus stress. The trial articular surface was removed and the final 9 mm articular surface was placed. This was fully seated. Care was taken to avoid any soft tissue interposition. Pulsatile lavage was again utilized. The medial parapatellar arthrotomy was closed with #2 Ethibond suture. A deep drain was placed exiting laterally. The tourniquet was deflated with approximately 70 minutes total tourniquet time. Final hemostasis was obtained with electrocautery. The subcutaneous tissues were reapproximated with interrupted 2-0 Vicryl sutures. Skin was reapproximated with 3-0 subcuticular strata fix suture. Skin tape and adhesive was applied. A sterile dressing was applied. The patient was awoken from general anesthesia and transferred to recovery room in good condition. Blood loss was estimated at 75 mL. No complications were incurred. Sponge and needle counts were correct at the end of the case.
[2017-03-14] MEDS: HYDROmorphone 0.5 MG/0.5 ML SYRINGE IVP PRN ×2 (13:27→13:32)
--- NOTE | 2017-03-14 13:43 | XR ---
Limited left knee HISTORY: Status post left knee arthroplasty 2 views of the left knee correlated to prior exam 03/13/2016 Patient is status post left knee arthroplasty. There is an indwelling drain. Alignment is maintained. Lucency in the soft tissues compatible with postop state. IMPRESSION: Orthopedic follow-up.
[2017-03-14] MEDS ORDERED: ALPRAZolam 0.5 MG TAB PO PRN (15:28)
[2017-03-14] MEDS ORDERED: ALBUTEROL INHALER 60 PUFF/8 GM INHALER INHALATION PRN (15:28)
[2017-03-14] MEDS ORDERED: FLUTICASONE 50MCG/SPRAY NASAL 16GM EA NOSTRIL PRN (15:28)
[2017-03-14] MEDS: HYDROcodone/APAP 7.5-325MG 1 EACH TAB PO PRN ×2 (15:33→21:37)
[2017-03-14] MEDS: hydrOXYzine PAMOATE 25 MG CAP PO PRN ×2 (15:33→22:30)
[2017-03-14] MEDS ORDERED: ALBUTEROL NEBULIZED 2.5 MG/3 ML INHALATION PRN (15:35)
[2017-03-14] MEDS: ceFAZolin 2 GM in SODIUM CHLORIDE 0.9% 100 ML IVPB SCH (17:48)
[2017-03-14] MEDS ORDERED: SYMBICORT 160-4.5 MCG INHALER INHALATION SCH (20:00)
[2017-03-14] MEDS ORDERED: traZODone HCL 50 MG TAB PO SCH (21:00)
[2017-03-14] MEDS ORDERED: SERTRALINE 50 MG TAB PO SCH (21:00)
[2017-03-14] MEDS ORDERED: PANTOPRAZOLE 40 MG TABLET PO SCH (21:00)
[2017-03-14] MEDS ORDERED: SENNOSIDES-DOCUSATE SODIUM 1 EACH TAB PO SCH (21:00)
[2017-03-14] MEDS: LANSOPRAZOLE 30 MG PO SCH (21:38)
[2017-03-15] MEDS: ceFAZolin 2 GM in SODIUM CHLORIDE 0.9% 100 ML IVPB SCH (01:21)
[2017-03-15] MEDS: ENOXAPARIN 30 MG/0.3 ML SYRINGE SQ SCH ×2 (01:22→09:04)
[2017-03-15] MEDS: traMADol 50 MG TAB PO PRN ×3 (01:22→13:28)
[2017-03-15 02:42] VITALS: RESP 16
[2017-03-15] MEDS: hydrOXYzine PAMOATE 25 MG CAP PO PRN ×3 (03:41→14:27)
[2017-03-15] MEDS: HYDROcodone/APAP 7.5-325MG 1 EACH TAB PO PRN ×3 (03:41→14:27)
[2017-03-15] MEDS ORDERED: LEVOTHYROXINE 100 MCG TAB PO SCH (06:30)
[2017-03-15] MEDS ORDERED: LEVOTHYROXINE 75 MCG TAB PO SCH (06:30)
[2017-03-15 06:56] LABS: Basophils % (A) 0 %; CH 25.2; CHCM 29.7; Eosinophils # (A) 0.2 k/uL (0-0.7); Eosinophils % (A) 2 %; HCT 30.1 % (34.0-46.0); HDW 2.65; Hypochromasia Marked; Luc # (Auto) 0.12; Luc % (Auto) 1; Lymphocytes # (A) 2.3 k/uL (1.0-4.8); Lymphocytes % (A) 22 %; MCH 24.5 pg (25.0-35.0); MCHC 28.8 g/dL (31.0-37.0); MCV 84.9 fL (80.0-100.0); Mean Platelet Volume 8.4; Monocytes # (A) 0.6 k/uL (0-1.0); Monocytes % (A) 5 %; Neutrophils # (A) 7.3 k/uL (1.3-7.7); Neutrophils % (A) 70 %; RBC 3.54 m/uL (3.80-5.40); RDW 13.1 % (11.5-15.5); WBC 10.4 k/uL (3.8-10.6); WBC (Perox) 10.45
[2017-03-15 06:58] LABS: HGB 8.7 gm/dL (11.4-16.0)
[2017-03-15] MEDS: LACTATED RINGERS 1,000 ML IV SCH (07:30)
[2017-03-15] MEDS ORDERED: FAMOTIDINE 20 MG TAB PO SCH (09:00)
[2017-03-15] MEDS ORDERED: LISINOPRIL 10 MG TAB PO SCH (09:00)
[2017-03-15] MEDS ORDERED: buPROPion XL 150 MG TAB.ER.24H PO SCH (09:00)
[2017-03-15] MEDS ORDERED: LORATADINE 10 MG TAB PO SCH (09:00)
[2017-03-15] MEDS ORDERED: MAGNESIUM OXIDE 400 MG TAB PO SCH (09:00)
[2017-03-15] MEDS: LANSOPRAZOLE 30 MG PO SCH (09:03)
[2017-03-15 09:18] VITALS: BP 105/68; TEMP 98.5
[2017-03-15] MEDS ORDERED: IPRATROPIUM-ALBUTEROL 3 ML NEB INHALATION PRN (10:56)
[2017-03-15] MEDS ORDERED: NON-FORMULARY DRUG (Glatiramer Acetate [Copaxone] 40 MG) SQ SCH (12:00)
[2017-03-15] MEDS ORDERED: IPRATROPIUM-ALBUTEROL 3 ML NEB INHALATION SCH (12:00)
--- NOTE | 2017-03-15 12:01 | P.PN ---
Subjective Progress Note Date: 03/15/17 Principal diagnosis: Status post left total knee arthroplasty Patient seen today resting in her hospital bed, she was utilizing CPM. Her pain is controlled. She's done well with therapy. She denies any headaches, lightheadedness, chest pain, shortness of breath, fever or chills. Objective - Vital Signs Vital signs: Vital Signs Temp 98.5 F 03/15/17 08:00 Pulse 72 03/15/17 08:00 Resp 16 03/15/17 08:00 BP 105/68 03/15/17 08:00 Pulse Ox 97 03/15/17 08:00 Intake & Output 03/14/17 03/15/17 03/15/17 18:59 06:59 18:59 Intake Total 1251 3320 Output Total 175 1305 935 Balance 1076 2014 - Weight 104.326 kg Intake: IV 1251 Intake, IV Titration 1200 Amount Lactated Ringers 1,000 ml 800 @ 50 mls/hr IV .Q20H [facility] Rx#:[id number] ceFAZolin 2 gm In Sodium 400 Chloride 0.9% 100 ml @ 100 mls/hr IVPB Q8HR [facility] Rx#:[id number] Oral 2120 Output: Drainage 160 35 Left Knee 160 35 Urine 100 1145 900 Uretheral (Morris) 625 900 Estimated Blood Loss 75 Other: Voiding Method Indwelling Catheter Indwelling Catheter Indwelling Catheter - Exam Left lower extremity: Incision is clean, dry, and intact. The prineo tape is in good condition. There is minimal soft tissue swelling and ecchymosis surrounding the medial and lateral aspects of the incision. Calf is soft, no tenderness with palpation. Plantar flexion, dorsiflexion, EHL, FHL are intact. Sensory exam to light touch throughout the extremity is intact, dorsal pedis pulses 2+. - Labs CBC & Chem 7: 03/15/17 06:16 Labs: Abnormal Lab Results - Last 24 Hours (Table) 03/15/17 Range/Units 06:16 RBC 3.54 L (3.80-5.40) m/uL Hgb 8.7 L D (11.4-16.0) gm/dL Hct 30.1 L (34.0-46.0) % MCH 24.5 L (25.0-35.0) pg MCHC 28.8 L (31.0-37.0) g/dL Assessment and Plan Plan: Assessment: 1. Postop day #1 status post left total knee arthroplasty Plan: 1. Pain control, we'll discharge home on oral medication 2. Continue work with therapy and CPM at home 3. GI and DVT prophylaxis, will utilize aspirin 325 mg twice a day 4. Dressing changes/ice and elevate 5. Medical recommendations 6. Discharge planning: Plan for discharge home today Time with Patient: Less than 30
[2017-03-15 12:03] VITALS: PULSE 84
--- NOTE | 2017-03-15 12:11 | P.DS ---
Providers Date of admission: 03/14/17 09:17 Expected date of discharge: 03/15/17 Attending physician: Luis Colon Consults: 03/14/17 12:54 Consult Physician Routine Consulting Provider: Lucy Kent Consult Reason/Comments: Medical management Do you want consulting provider notified?: Yes Primary care physician: Stated None Hospital Course: Date of admission: 03/14/2017 Date of discharge: 03/15/2017 Admission diagnosis: Status post left total knee arthroplasty Discharge diagnosis: Same Attending physician: Dr. Colon Surgical procedures: Left total knee arthroplasty Brief history: Patient is a 52-year-old female with a history of progressive primary left knee osteoarthritis. At this point patient has failed conservative treatment measures and has opted to proceed with a elective left total knee arthroplasty. Hospital course: Details of patient's surgery can be found in operative report. Patient tolerated the procedure well and was subsequently transported to orthopedic floor. Patient's orthopeidc and medical care was provided daily. Patient had daily laboratory tests performed for evaluation of overall blood counts. Patient had daily physical therapy to include strengthening range of motion as well as education with walker ambulation. Patient had daily CPM usage as part of their physical therapy program. Patient was treated with Xarelto for their postoperative DVT prophylaxis during their inpatient stay. Patient was noted to have a relatively uneventful postoperative course. Patient reported satisfactory pain control with oral pain medications by postoperative day 0. Patient showed satisfactory progress with physical therapy. Patient moved steadily through the program and had no difficulty meeting the goals by postoperative day 1. Given patient's otherwise satisfactory course and having met physical therapy goals, plan is to discharge patient home on postoperative day 1. Discharge condition/disposition: Patient will be discharged home in stable condition. Discharge medications: Instructions are given on resumption of patient's normal daily medications per primary care recommendation, in addition patient will be prescribed [place] 7.5 mg/325 mg, tramadol 50 mg, Vistaril 25 mg, Colace 100 mg, aspirin 325 mg. Discharge instructions: 1. Wound care and infection precautions, keep incision dry and covered while showering, no lotions, creams, moisturizers. No soaking, tubs, pools, hottubs. Do not scrub over the incision. 2. Weight-bear as tolerated with walker / cane until follow-up. 3. Ice and elevate when necessary. Do not exceed 20 minutes per hour with ice pack. 4. Utilize compression sleeve until seen at first follow up appointment. 5. Visiting nursing care. 6. Home physical therapy including home CPM. 7. Pain meds and anticoagulants per prescription. 8. Pain medication has potential to cause constipation. Increase oral fluid and fiber intake. Contact primary care provider if you have not had a bowel movement within 48 hours after discharge 9. No anti-inflammatory medication until discussed at first post operative visit, this including Motrin, Aleve, Mobic, Diclofenac. 10. Follow up in office at 2 weeks postop with Wilbur Russ PA-C 11. Follow up with your primary care doctor 7-10 days after discharge. 12. Contact [facility] with any questions, . Procedures: Left total knee arthroplasty Patient Condition at Discharge: Good Plan - Discharge Summary Discharge Rx Participant: Yes New Discharge Prescriptions: New Sennosides-Docusate Sodium [Senokot-S] 2 each PO HS tab Aspirin 325 mg PO BID #60 tab Famotidine [Pepcid] 20 mg PO DAILY #30 tablet HYDROcodone/APAP 7.5-325MG [[place] 7.5] 1 - 2 each PO Q6HR PRN #60 tab PRN Reason: Pain hydrOXYzine PAMOATE [Vistaril] 25 mg PO Q6HR #60 capsule traMADol HCl [Ultram] 50 mg PO Q6H PRN #40 tab PRN Reason: Pain Continue traZODone HCL [Desyrel] 50 - 75 mg PO HS ALPRAZolam 0.5 mg PO BID PRN PRN Reason: Anxiety buPROPion XL [Wellbutrin XL] 150 mg PO QAM Mometasone/Formoterol [Dulera 200 Mcg/5 Mcg Inhaler] 2 puff INHALATION RT-BID Albuterol Sulfate [Ventolin HFA] 2 puff INHALATION RT-BID PRN PRN Reason: Shortness Of Breath Sertraline HCl [Zoloft] 50 mg PO HS Levothyroxine Sodium [Synthroid] 175 mcg PO QAM Lansoprazole [Prevacid] 30 mg PO BID Cholecalciferol [Vitamin D3] 5,000 unit PO DAILY Magnesium Oxide [Mag-Ox] 250 mg PO DAILY Glatiramer Acetate [Copaxone] 40 mg SQ MOWEFR Fluticasone Nasal [place] [Flonase Nasal [place]] 2 spr EA NOSTRIL DAILY PRN PRN Reason: allergy sx Loratadine [Claritin] 10 mg PO DAILY Lisinopril-Hctz 10-12.5 mg [Zestoretic 10-12.5] 1 tab PO HS #0 Discharge Medication List ALPRAZolam 0.5 mg PO BID PRN 09/26/15 [History] Albuterol Sulfate [Ventolin HFA] 2 puff INHALATION RT-BID PRN 09/26/15 [History] Mometasone/Formoterol [Dulera 200 Mcg/5 Mcg Inhaler] 2 puff INHALATION RT-BID [History] buPROPion XL [Wellbutrin XL] 150 mg PO QAM 09/26/15 [History] traZODone HCL [Desyrel] 50 - 75 mg PO HS 09/26/15 [History] Sertraline HCl [Zoloft] 50 mg PO HS 09/29/15 [History] Levothyroxine Sodium [Synthroid] 175 mcg PO QAM 03/31/16 [History] Cholecalciferol [Vitamin D3] 5,000 unit PO DAILY 01/24/17 [History] Fluticasone Nasal [place] [Flonase Nasal [place]] 2 spr EA NOSTRIL DAILY PRN [History] Glatiramer Acetate [Copaxone] 40 mg SQ MOWEFR 01/24/17 [History] Lansoprazole [Prevacid] 30 mg PO BID 01/24/17 [History] Magnesium Oxide [Mag-Ox] 250 mg PO DAILY 01/24/17 [History] Loratadine [Claritin] 10 mg PO DAILY 03/08/17 [History] Aspirin 325 mg PO BID #60 tab 03/15/17 [Rx] Famotidine [Pepcid] 20 mg PO DAILY #30 tablet 03/15/17 [Rx] HYDROcodone/APAP 7.5-325MG [[place] 7.5] 1 - 2 each PO Q6HR PRN #60 tab 03/15/17 [ Rx] Lisinopril-Hctz 10-12.5 mg [Zestoretic 10-12.5] 1 tab PO HS #0 03/15/17 [Rx] Sennosides-Docusate Sodium [Senokot-S] 2 each PO HS tab 03/15/17 [Rx] hydrOXYzine PAMOATE [Vistaril] 25 mg PO Q6HR #60 capsule 03/15/17 [Rx] traMADol HCl [Ultram] 50 mg PO Q6H PRN #40 tab 03/15/17 [Rx] Follow up Appointment(s)/Referral(s): Meghana Houston DO [REFERRING] - 1 Week Raimundo Russ PAC [PHYSICIAN PRICING ANALYST] - 2 Weeks [facility], [REFERRING] - Ambulatory/Diagnostic Orders: Complete Blood Count w/diff [LAB.AMB] Time Frame: 1 Week, Location: Determined By Patient Activity/Diet/Wound Care/Special Instructions: Resume Home Med ASA when ok with Ortho. Anticoagulation?pain med as per Ortho Orthopedic Discharge Instructions: 1. Wound care and infection precautions, keep incision dry and covered while showering, no lotions, creams, moisturizers. No soaking, pools, hot tubs. Do not scrub over incision. 2. Weight-bear as tolerated with walker / cane until follow-up. 3. Ice and elevate when necessary. Do not exceed 20 minutes per hour with ice pack. 4. Utilize compression sleeve until seen at first follow up appointment. 5. Visiting nursing care. 6. Home physical therapy including home CPM. 7. Pain meds and anticoagulants per prescription. 8. Pain medication has potential to cause constipation. Increase oral fluid and fiber intake. Contact primary care provider if you have not had a bowel movement within 48 hours after discharge. 9. No anti-inflammatory medication until discussed at first post operative visit, this including Motrin, Aleve, Mobic, Diclofenac. 10. Follow up in office at 2 weeks postop with Wilbur Russ PA-C 11. Follow up with your primary care doctor 7-10 days after discharge. 12. Contact [facility] with any questions, . CPM ordered by Dr. Colon's Office. Discharge Disposition: HOME WITH HOME HEALTH SERVICES
--- NOTE | 2017-03-16 18:55 | P.CONS ---
History of Present Illness - Reason for Consult Consult date: 03/15/17 Medical management of asthma, MS, anxiety, depression, nicotine abuse Requesting physician: Luis Colon - Chief Complaint Left knee pain - History of Present Illness Consult note being dictated for Dr. Kent. This is a 52-year-old female who presented with significant left knee pain related to osteoarthritis, failed outpatient treatment. S/P left total knee arthroplasty. Tolerated well. Pain controlled. Ambulating with walker, performed stairs with physical therapy, tolerated well. Tolerated CPM, last night. Good diet intake, no nausea vomiting. Passing flatus, no bowel movement. Afebrile, normal WBC. Vital signs stable, maintaining O2 sats of 97 % on room air. Denies chest pain, palpitations or shortness of breath. Denies lightheadedness dizziness or focal deficits. Review of Systems CONSTITUTIONAL: No fever, no malaise, no fatigue. HEENT: No recent visual problems or hearing problems. Denied any sore throat. CARDIOVASCULAR: No chest pain, orthopnea, PND, no palpitations, no syncope. PULMONARY: No shortness of breath, no cough, no hemoptysis. GASTROINTESTINAL: No diarrhea, no nausea, no vomiting, no abdominal pain. Normoactive bowel sounds. NEUROLOGICAL: No headaches, no weakness, no numbness. HEMATOLOGICAL: Denies any bleeding or petechiae. GENITOURINARY: Denies any burning micturition, frequency, or urgency. MUSCULOSKELETAL/RHEUMATOLOGICAL: Left knee pain improved, controlled, ambulating without difficulty ENDOCRINE: Denies any polyuria or polydipsia. The rest of the 14-point review of systems is negative. Past Medical History Past Medical History: Asthma Additional Past Medical History / Comment(s): MS History of Any Multi-Drug Resistant Organisms: None Reported Past Surgical History: Cholecystectomy, Hernia Repair, Orthopedic Surgery Additional Past Surgical History / Comment(s): wrist surgery, polyps removed, right knee Past Anesthesia/Blood Transfusion Reactions: No Reported Reaction Additional Past Anesthesia/Blood Transfusion Reaction / Comm: MOTHER TOOK LONG TIME TO AWAKEN "HAD TOO MUCH." Past Psychological History: Anxiety, Depression, Panic Disorder Smoking Status: Current every day smoker Past Alcohol Use History: Occasional Additional Past Alcohol Use History / Comment(s): SMOKED ON/OFF 30 YEARS, NOW USES E-SIGARETTE OCC. Past Drug Use History: None Reported Additional Drug Use History / Comment(s): OCC USE - Past Family History Father Family Medical History: Cancer Sister(s) Family Medical History: Cancer Mother Family Medical History: Cancer Additional Family Medical History / Comment(s): skin Medications and Allergies Home Medications Medication Instructions Recorded Confirmed Type ALPRAZolam 0.5 mg PO BID PRN 09/26/15 03/14/17 History Albuterol Sulfate [Ventolin HFA] 2 puff INHALATION RT-BID PRN 09/26/15 03/14/17 History Mometasone/Formoterol [Dulera 200 2 puff INHALATION RT-BID 09/26/15 03/14/17 History Mcg/5 Mcg Inhaler] buPROPion XL [Wellbutrin XL] 150 mg PO QAM 09/26/15 03/14/17 History traZODone HCL [Desyrel] 50 - 75 mg PO HS 09/26/15 03/14/17 History Sertraline HCl [Zoloft] 50 mg PO HS 09/29/15 03/14/17 History Levothyroxine Sodium [Synthroid] 175 mcg PO QAM 03/31/16 03/14/17 History Cholecalciferol [Vitamin D3] 5,000 unit PO DAILY 01/24/17 03/14/17 History Fluticasone Nasal [place] [Flonase 2 spr EA NOSTRIL DAILY PRN 01/24/17 03/14/17 History Nasal [place]] Glatiramer Acetate [Copaxone] 40 mg SQ MOWEFR 01/24/17 03/14/17 History Lansoprazole [Prevacid] 30 mg PO BID 01/24/17 03/14/17 History Magnesium Oxide [Mag-Ox] 250 mg PO DAILY 01/24/17 03/14/17 History Loratadine [Claritin] 10 mg PO DAILY 03/08/17 03/14/17 History Aspirin 325 mg PO BID #60 tab 03/15/17 Rx Famotidine [Pepcid] 20 mg PO DAILY #30 tablet 03/15/17 Rx HYDROcodone/APAP 7.5-325MG [[place] 1 - 2 each PO Q6HR PRN #60 tab 03/15/17 Rx 7.5] Lisinopril-Hctz 10-12.5 mg 1 tab PO HS #0 03/15/17 03/14/17 Rx [Zestoretic 10-12.5] Sennosides-Docusate Sodium 2 each PO HS tab 03/15/17 Rx [Senokot-S] hydrOXYzine PAMOATE [Vistaril] 25 mg PO Q6HR #60 capsule 03/15/17 Rx traMADol HCl [Ultram] 50 mg PO Q6H PRN #40 tab 03/15/17 Rx Allergies Allergy/AdvReac Type Severity Reaction Status Date / Time No Known Allergies Allergy Verified 03/14/17 15:00 Physical Exam PHYSICAL EXAM: VITAL SIGNS: [Temperature 98.5, pulse 72, straight 16, blood pressure 105/68, O2 sat 97% on room air] GENERAL: Sitting up in bed, no acute distress, visiting with family HEENT: Conjunctivae normal. eyes normal. Oral mucosa moist NECK: No JVD. No thyroid enlargement. No LNs CARDIOVASCULAR: S1, S2 muffled. No murmur RESPIRATION: Breath sounds clear. No rhonchi or crackles. No wheezing, No bronchial breathing. ABDOMEN: Soft, nondistended, nontender .Bowel sounds heard. No guarding, no rigidity LEGS: Left lower extremity clean dry and intact, well approximated minimal edema , positive DP pulse PSYCHIATRY: Alert and oriented -3, mood and affect normal. NERVOUS SYSTEM: Cranial N 2-12 grossly normal. Moves all 4 limbs. Diffuse weakness No focal deficits. No sensory deficit. Skin: no ulcer no rash Lymphatic system. No LN neck axilla or groin. Results CBC & Chem 7: 03/15/17 06:16 Assessment and Plan Assessment: 1. Status post left total knee arthroplasty for OA, failed outpatient treatment 2. Chronic intermittent asthma, no acute exacerbation 3. History of MS, no acute exacerbation 4. Anxiety, controlled 5. History of depression, currently denies 6. History of panic attacks, currently denies 7. Nicotine abuse, patient states only smokes socially not daily, smoking cessation Plan: Continuing current medication regime, monitoring. GI and DVT prophylaxis in place. Aggressive pulmonary toileting with incentive spirometer reinforced. Pain management and DVT prophylaxis as per orthopedics. Scheduled for discharge home today as per orthopedics. Repeat CBC outpatient as ordered. Follow-up with PCP in 1 week. Further recommendations to follow. The impression and plan of care has been dictated as directed. : I performed a history and examination of this patient, discussed the same with the dictator. I agree with the dictator's note ,documented as a scribe. Any additional findings or plans will be noted.
== END 2017-03-15 15:15 | disposition home health service (06) | DRG 470 ==
LOC: 2ORMAIN 09:17 → 3SUR 13:31
PROVIDERS: ADMIT Orthopaedic Surgery; ATTEND Orthopaedic Surgery
PROC: 0SRD0J9 Replacement of Left Knee Joint with Synthetic Substitute, Cemented, Open Approach (ICD-10-PCS; principal; 2017-03-14 10:45)
DX: M17.12 Unilateral primary osteoarthritis, left knee (principal); G35 Multiple sclerosis; I10 Essential (primary) hypertension; F32.9 Major depressive disorder, single episode, unspecified; E03.9 Hypothyroidism, unspecified; F17.200 Nicotine dependence, unspecified, uncomplicated; F41.0 Panic disorder [episodic paroxysmal anxiety]; J45.20 Mild intermittent asthma, uncomplicated; Z79.82 Long term (current) use of aspirin; Z79.899 Other long term (current) drug therapy; Z96.651 Presence of right artificial knee joint
CPT/HCPCS: 85025; 88300; 94640

== ENCOUNTER 2017-12-21 16:19 | Emergency (ER) | payer BC ==
[2017-12-21] MEDS ORDERED: SODIUM CHLORIDE 0.9% 1,000 ML IV ONE (16:48)
[2017-12-21] MEDS ORDERED: SODIUM CHLORIDE 0.9% 1,000 ML IV SCH (17:00)
[2017-12-21 17:30] LABS: Basophils # (A) 0.1 k/uL (0-0.2); Basophils % (A) 0 %; Eosinophils # (A) 0.4 k/uL (0-0.7); Eosinophils % (A) 3 %; HCT 40.6 % (34.0-46.0); HGB 13.5 gm/dL (11.4-16.0); Lymphocytes # (A) 2.2 k/uL (1.0-4.8); Lymphocytes % (A) 16 %; MCH 28.4 pg (25.0-35.0); MCHC 33.2 g/dL (31.0-37.0); MCV 85.6 fL (80.0-100.0); Mean Platelet Volume 8.9; Monocytes # (A) 0.8 k/uL (0-1.0); Monocytes % (A) 6 %; Neutrophils % (A) 74 %; Platelet Count 191 k/uL (150-450); RBC 4.75 m/uL (3.80-5.40); RDW 13.1 % (11.5-15.5); WBC 13.5 k/uL (3.8-10.6)
[2017-12-21 17:54] LABS: Appearance,Urine Clear (Clear); Bilirubin,Urine Negative (Negative); Blood,Urine Negative (Negative); Color,Urine Light Yellow; Glucose,Urine (UA) Negative (Negative); Ketones,Urine 1+ (Negative); Leukocyte Esterase,Urine Negative (Negative); Nitrite,Urine Negative (Negative); Protein,Urine Negative (Negative); Specific Gravity,Urine 1.009 (1.001-1.035); Urobilinogen,Urine <2.0 mg/dL (<2.0)
[2017-12-21 18:04] LABS: Amphetamine Screen,Urine Not Detected (NotDetected); Barbiturate Screen,Urine Not Detected (NotDetected); Benzodiazepines Screen,Urine Detected (NotDetected); Cocaine Screen,Urine Not Detected (NotDetected); Methadone Screen, Urine Not Detected (NotDetected); Opiate Screen,Urine Not Detected (NotDetected); Oxycodone Screen, Urine Not Detected (NotDetected); Phencyclidine Screen,Urine Not Detected (NotDetected); Tricyclic Antidepressant,Urine Not Detected (NotDetected); Urn Cannabinoid Scrn Detected (NotDetected)
--- NOTE | 2017-12-21 18:19 | XR ---
EXAMINATION TYPE: XR chest 2V DATE OF EXAM: 12/21/2017 COMPARISON: NONE HISTORY: Cough TECHNIQUE: Frontal and lateral views of the chest are obtained. FINDINGS: Heart and mediastinum are normal. Lungs are clear. Diaphragm is normal. Bony thorax is int act. IMPRESSION: Normal chest.
--- NOTE | 2017-12-21 18:20 | XR ---
EXAMINATION TYPE: XR shoulder complete LT DATE OF EXAM: 12/21/2017 COMPARISON: NONE HISTORY: Shoulder pain TECHNIQUE: 3 views FINDINGS: I see no fracture nor dislocation. Joint spaces are fairly normal. There are no pathologic calcifications at the greater tuberosity. IMPRESSION: Negative left shoulder exam.
--- NOTE | 2017-12-21 18:21 | XR ---
EXAMINATION TYPE: XR hand complete LT DATE OF EXAM: 12/21/2017 COMPARISON: NONE HISTORY: Hand pain TECHNIQUE: 3 views FINDINGS: I see no fracture nor dislocation. Joint spaces are fairly normal. There are no erosions. IMPRESSION: Negative left hand exam.
--- NOTE | 2017-12-21 18:51 | ED ---
Psych HPI - General Chief Complaint: Psychiatric Symptoms Stated Complaint: Mental Health Time Seen by Provider: 12/21/17 16:34 Source: patient, police, EMS Mode of arrival: EMS - History of Present Illness Initial Comments: 52 years old female who would not get out of the pool surface called she stayed in the pool for over an hour brought in by Accounting Assistant and stated that she is in a manic state she hasn't slept for last 3 days she was quite combative initially with a large enforcement she was cooperative but very irritable every question I asked her that stressed her out made her angry. Denies any suicidal ideation at this point or homicidal ideation. Complaining about left hand pain or shoulder pain and the pain - Related Data Home Medications Medication Instructions Recorded Confirmed ALPRAZolam 0.5 mg PO DAILY PRN 09/26/15 12/21/17 Albuterol Sulfate [Ventolin HFA] 2 puff INHALATION RT-BID PRN 09/26/15 12/21/17 Mometasone/Formoterol [Dulera 200 2 puff INHALATION RT-BID 09/26/15 12/21/17 Mcg/5 Mcg Inhaler] buPROPion XL [Wellbutrin XL] 150 mg PO QAM 09/26/15 12/21/17 traZODone HCL [Desyrel] 50 - 100 mg PO HS 09/26/15 12/21/17 Levothyroxine Sodium [Synthroid] 175 mcg PO QAM 03/31/16 12/21/17 Fluticasone Nasal [place] [Flonase 1 spr EA NOSTRIL DAILY 01/24/17 12/21/17 Nasal [place]] Lansoprazole [Prevacid] 30 mg PO BID 01/24/17 12/21/17 Aspirin 325 mg PO DAILY PRN 12/21/17 12/21/17 Lisinopril-Hctz 10-12.5 mg 1 tab PO DAILY 12/21/17 12/21/17 [Zestoretic 10-12.5] Sertraline [Zoloft] 100 mg PO HS 12/21/17 12/21/17 Allergies Allergy/AdvReac Type Severity Reaction Status Date / Time amoxicillin Allergy Rash/Hives Verified 12/21/17 16:59 Review of Systems ROS Statement: Those systems with pertinent positive or pertinent negative responses have been documented in the HPI. ROS Other: All systems not noted in ROS Statement are negative. Past Medical History Past Medical History: Asthma Additional Past Medical History / Comment(s): MS History of Any Multi-Drug Resistant Organisms: None Reported Past Surgical History: Cholecystectomy, Hernia Repair, Orthopedic Surgery Additional Past Surgical History / Comment(s): wrist surgery, polyps removed, right knee Past Anesthesia/Blood Transfusion Reactions: No Reported Reaction Additional Past Anesthesia/Blood Transfusion Reaction / Comment(s): MOTHER TOOK LONG TIME TO AWAKEN "HAD TOO MUCH." Past Psychological History: Anxiety, Depression, Panic Disorder Smoking Status: Current every day smoker Past Alcohol Use History: Occasional Past Drug Use History: None Reported - Past Family History Father Family Medical History: Cancer Sister(s) Family Medical History: Cancer Mother Family Medical History: Cancer Additional Family Medical History / Comment(s): skin General Exam - General Exam Comments Initial Comments: General: The patient is awake and alert, in no distress, and does not appear acutely ill. Skin: Skin is warm and dry and no rashes or lesions are noted. Eye: Pupils are equal, round and reactive to light, extra-ocular movements are intact; there is normal conjunctiva bilaterally. Ears, nose, mouth and throat: There are moist mucous membranes and no oral lesions. Neck: The neck is supple, there is no tenderness or JVD. Cardiovascular: There is a regular rate and rhythm. No murmur, rub or gallop is appreciated. Respiratory: To auscultation bilateral, no wheezing no rhonchi no distress respiratory ryder noticed Gastrointestinal: Soft, non-distended, non-tender abdomen without masses or organomegaly noted. There is no rebound or guarding present. Bowel sounds are unremarkable. Back: There is no tenderness to palpation in the midline. There is no obvious deformity. Musculoskeletal: Normal ROM, no tenderness, shoulder has some tenderness over the anterior part of the joint and his hand is mildly swollen and mildly produced no neurovascular deficit noticed functions are within normal range Neurological: CN II-XII intact, Cranial nerves III through XII are intact. There are no obvious motor or sensory deficits. Coordination appears grossly intact. Speech is normal. Psychiatric: Cooperative, appropriate mood & affect, normal judgment. Limitations: no limitations Course Vital Signs 12/21/17 16:30 Temperature 98.3 F Pulse Rate 93 Respiratory 18 Rate Blood Pressure 110/77 O2 Sat by Pulse 100 Oximetry Labs are reviewed, white count is 13.5), this is because of the stress she was quite combative with the law enforcement urinalysis is normal urine drug screen is positive for benzos and marijuana (shoulder x-ray hip x-ray and chest x-ray were within normal range ,Cert paperwork was completed and I examined the patient myself, stressed with the EPS nurse and she'll be transferred to appropriate psychiatric facility. She is awaiting to be transferred to other psych facility - Reevaluation(s) Reevaluation #1: We have cleared her medically and EPS has been consulted 12/21/17 18:51 Medical Decision Making - Lab Data Result diagrams: 12/21/17 17:20 12/21/17 17:20 Lab Results 12/21/17 12/21/17 12/21/17 Range/Units 17:20 17:20 17:50 WBC 13.5 H (3.8-10.6) k/uL RBC 4.75 (3.80-5.40) m/uL Hgb 13.5 (11.4-16.0) gm/dL Hct 40.6 (34.0-46.0) % MCV 85.6 (80.0-100.0) fL MCH 28.4 (25.0-35.0) pg MCHC 33.2 (31.0-37.0) g/dL RDW 13.1 (11.5-15.5) % Plt Count 191 (150-450) k/uL Neutrophils % 74 % Lymphocytes % 16 % Monocytes % 6 % Eosinophils % 3 % Basophils % 0 % Neutrophils # 10.0 H (1.3-7.7) k/uL Lymphocytes # 2.2 (1.0-4.8) k/uL Monocytes # 0.8 (0-1.0) k/uL Eosinophils # 0.4 (0-0.7) k/uL Basophils # 0.1 (0-0.2) k/uL Sodium 134 L (137-145) mmol/L Potassium 3.6 (3.5-5.1) mmol/L Chloride 100 (98-107) mmol/L Carbon Dioxide 27 (22-30) mmol/L Anion Gap 7 mmol/L BUN 25 H (7-17) mg/dL Creatinine 1.03 (0.52-1.04) mg/dL Est GFR (CKD-EPI)AfAm 72 (>60 ml/min/1.73 sqM) Est GFR (CKD-EPI)NonAf 63 (>60 ml/min/1.73 sqM) Glucose 99 (74-99) mg/dL Calcium 9.2 (8.4-10.2) mg/dL Total Bilirubin 0.9 (0.2-1.3) mg/dL AST 32 (14-36) U/L ALT 42 (9-52) U/L Alkaline Phosphatase 95 (38-126) U/L Total Protein 6.3 (6.3-8.2) g/dL Albumin 3.7 (3.5-5.0) g/dL Urine Color Light Yellow Urine Appearance Clear (Clear) Urine pH 6.0 (5.0-8.0) Ur Specific [place] 1.009 (1.001-1.035) Urine Protein Negative (Negative) Urine Glucose (UA) Negative (Negative) Urine Ketones 1+ H (Negative) Urine Blood Negative (Negative) Urine Nitrite Negative (Negative) Urine Bilirubin Negative (Negative) Urine Urobilinogen <2.0 (<2.0) mg/dL Ur Leukocyte Esterase Negative (Negative) Urine HCG, Qual (Not Detectd) Urine Opiates Screen Not Detected (NotDetected) Ur Oxycodone Screen Not Detected (NotDetected) Urine Methadone Screen Not Detected (NotDetected) Ur Propoxyphene Screen Not Detected (NotDetected) Ur Barbiturates Screen Not Detected (NotDetected) U Tricyclic Antidepress Not Detected (NotDetected) Ur Phencyclidine Scrn Not Detected (NotDetected) Ur Amphetamines Screen Not Detected (NotDetected) U Methamphetamines Scrn Not Detected (NotDetected) U Benzodiazepines Scrn Detected H (NotDetected) Urine Cocaine Screen Not Detected (NotDetected) U Marijuana (THC) Screen Detected H (NotDetected) 12/21/17 Range/Units 17:50 WBC (3.8-10.6) k/uL RBC (3.80-5.40) m/uL Hgb (11.4-16.0) gm/dL Hct (34.0-46.0) % MCV (80.0-100.0) fL MCH (25.0-35.0) pg MCHC (31.0-37.0) g/dL RDW (11.5-15.5) % Plt Count (150-450) k/uL Neutrophils % % Lymphocytes % % Monocytes % % Eosinophils % % Basophils % % Neutrophils # (1.3-7.7) k/uL Lymphocytes # (1.0-4.8) k/uL Monocytes # (0-1.0) k/uL Eosinophils # (0-0.7) k/uL Basophils # (0-0.2) k/uL Sodium (137-145) mmol/L Potassium (3.5-5.1) mmol/L Chloride (98-107) mmol/L Carbon Dioxide (22-30) mmol/L Anion Gap mmol/L BUN (7-17) mg/dL Creatinine (0.52-1.04) mg/dL Est GFR (CKD-EPI)AfAm (>60 ml/min/1.73 sqM) Est GFR (CKD-EPI)NonAf (>60 ml/min/1.73 sqM) Glucose (74-99) mg/dL Calcium (8.4-10.2) mg/dL Total Bilirubin (0.2-1.3) mg/dL AST (14-36) U/L ALT (9-52) U/L Alkaline Phosphatase (38-126) U/L Total Protein (6.3-8.2) g/dL Albumin (3.5-5.0) g/dL Urine Color Urine Appearance (Clear) Urine pH (5.0-8.0) Ur Specific [place] (1.001-1.035) Urine Protein (Negative) Urine Glucose (UA) (Negative) Urine Ketones (Negative) Urine Blood (Negative) Urine Nitrite (Negative) Urine Bilirubin (Negative) Urine Urobilinogen (<2.0) mg/dL Ur Leukocyte Esterase (Negative) Urine HCG, Qual Not Detected (Not Detectd) Urine Opiates Screen (NotDetected) Ur Oxycodone Screen (NotDetected) Urine Methadone Screen (NotDetected) Ur Propoxyphene Screen (NotDetected) Ur Barbiturates Screen (NotDetected) U Tricyclic Antidepress (NotDetected) Ur Phencyclidine Scrn (NotDetected) Ur Amphetamines Screen (NotDetected) U Methamphetamines Scrn (NotDetected) U Benzodiazepines Scrn (NotDetected) Urine Cocaine Screen (NotDetected) U Marijuana (THC) Screen (NotDetected) Disposition Clinical Impression: Manic behavior, Bipolar disorder Disposition: TRANSFER TO PSYCH HOSP/UNIT Condition: Good Referrals: Meghana Houston DO [Primary Care Provider] - 1-2 days
[2017-12-21] MEDS ORDERED: ZIPRASIDONE 20 MG VIAL IM STA (22:39)
[2017-12-21 23:56] LABS: Albumin 3.7 g/dL (3.5-5.0); Calcium 9.2 mg/dL (8.4-10.2); Potassium 3.6 mmol/L (3.5-5.1); Total Bilirubin 0.9 mg/dL (0.2-1.3); Total Protein 6.3 g/dL (6.3-8.2)
[2017-12-22 07:06] VITALS: BP 115/69; PULSE 100; RESP 18; TEMP 98
== END 2017-12-22 07:07 ==
LOC: EC 16:19
DX: F31.9 Bipolar disorder, unspecified (principal); M79.89 Other specified soft tissue disorders; M79.642 Pain in left hand; M25.512 Pain in left shoulder; J45.909 Unspecified asthma, uncomplicated; F41.0 Panic disorder [episodic paroxysmal anxiety]; Z87.891 Personal history of nicotine dependence; Z79.51 Long term (current) use of inhaled steroids; Z79.82 Long term (current) use of aspirin; Z79.899 Other long term (current) drug therapy; Z88.0 Allergy status to penicillin
CPT/HCPCS: 82075; 36415; 80053; 85025; 81003; 81025; 80306; 73030; 73130; 71046; 99285; 96360; 96361 ×12; 96372; J3486

== ENCOUNTER → 2018-04-06 | Outpatient (CLI) | payer BC ==
--- NOTE | 2018-04-10 10:17 | MM ---
Reason for exam: screening (asymptomatic). Last mammogram was performed 1 year and 11 months ago. History: Family history of breast cancer in sister at age 41. Taking hormonal contraceptives for 4 years 4 months beginning at age 43. Physical Findings: A clinical breast exam by your physician is recommended on an annual basis and results should be correlated with mammographic findings. MG 3D Screening Mammo W/Cad Bilateral CC and MLO view(s) were taken. Prior study comparison: May 11, 2016, bilateral MG 3d screening mammo w/cad. March 27, 2015, bilateral MG screening mammo w CAD. The breast tissue is heterogeneously dense. This may lower the sensitivity of mammography. No significant changes when compared with prior studies. ASSESSMENT: Negative, BI-RAD 1 RECOMMENDATION: Routine screening mammogram of both breasts in 1 year.
== END | disposition home or self-care (01) ==
LOC: RADMAMWWP 14:50
PROVIDERS: ATTEND Family Medicine
DX: Z12.31 Encounter for screening mammogram for malignant neoplasm of breast (principal)
CPT/HCPCS: 77063; 77067

== ENCOUNTER → 2018-07-19 | Outpatient (CLI) | payer OTHER ==
--- NOTE | 2018-07-19 21:41 | MR ---
EXAMINATION TYPE: MR brain wo/w con DATE OF EXAM: 07/19/2018 COMPARISON: Prior MRI brain January 06, 2017 HISTORY: Multiple sclerosis, F/U TECHNIQUE: Multiplanar, multisequence images of the brain and brainstem is performed without and with IV contras t, utilizing 9 mL intravenous Gadavist gadolinium contrast is administered intravenously. Demyelinat ing disease protocol with additional Sagittal Flair sequence performed. FINDINGS: T2 Lesions Present : Yes Approximate Number of Lesions: Approximately 10-15 small lesions Locations Identified : Scattered Size of Reference Lesion(s): 2 small adjacent lesions 3 to 4 mm lesions axial image 23 unchanged. Enhancing Lesion(s) Present: No T1 Hypointense Lesion(s) Present: Yes Change from Prior: Stable Diffusion weighted images demonstrate no evidence of a recent infarct or other diffusion abnormality. There is no worrisome extra-axial fluid collection. The ventricular system and cisternal spaces ar e normal in size and appearance. The brain volume is age appropriate. Midline structures demonstrate normal morphology. The craniocervical junction appears within normal limits. Post contrast images demonstrate no abnormal enhancement. The dural venous sinuses appear pa tent. The visualized sinuses are clear and the globes are intact. IMPRESSION: Mild nonspecific white matter changes may be on basis of known multiple sclerosis. No new or enhancing lesions are evident.
== END ==
LOC: RADMRIMAIN 17:40
PROVIDERS: ATTEND Psychiatry & Neurology Neurology
DX: G35 Multiple sclerosis (principal)
CPT/HCPCS: 82565; 84520; 70553; 36415; A9585

== ENCOUNTER 2018-12-12 06:01 | Inpatient (IN) | payer OTHER ==
--- NOTE | 2018-12-12 06:49 | ED ---
Psych HPI - General Source: patient, EMS Mode of arrival: EMS <Corinna Lepe - Last Filed: 12/12/18 08:23> <Hero Graham - Last Filed: 12/12/18 10:08> - General Chief Complaint: Psychiatric Symptoms Stated Complaint: Mental Health Time Seen by Provider: 12/12/18 06:17 - History of Present Illness Initial Comments: Sharon is a 53-year-old female with past medical history most significant for MS as well as bipolar disease. Patient is brought to the emergency department this morning her psychiatric evaluation. Patient reports that she's been feeling much better lately than she usually does due to her MS and chronic pain. She states that because she's been feeling better she's been trying to be productive around the house. She reports that she has been making an effort to cut the grass. She states that because of the size of there property and her limitations due to her MS she is only able to work short periods of time and she tries to work in the shade so she's been mowing portions of her grass over different days. Patient reports she's been just been doing this to be productive around the house however family reports she's been mowing the grass every day multiple days in a row in a very irregular pattern that seems illogical. She seems obsessed. She was out in the flowerbeds in the rain stating that she could only work when the pitcher down so she had workup flowerbeds in the rain. Mother bedside states that the patient has been evaluated in the past and diagnosed with bipolar. She has periods of amarilis. Mother reports that this seems very similar to previous manic episodes. The patient seems fixated on doing lawn work. She seems agitated she speaking very quickly she has multiple thoughts of the same time. (Corinna Lepe) - Related Data Home Medications Medication Instructions Recorded Confirmed ALPRAZolam 0.5 mg PO DAILY PRN 09/26/15 12/12/18 Albuterol Sulfate [Ventolin HFA] 2 puff INHALATION RT-BID PRN 09/26/15 12/12/18 Mometasone/Formoterol [Dulera 200 2 puff INHALATION RT-BID 09/26/15 12/12/18 Mcg/5 Mcg Inhaler] traZODone HCL [Desyrel] 50 mg PO HS 09/26/15 12/12/18 Fluticasone Nasal [place] [Flonase 1 spr EA NOSTRIL DAILY 01/24/17 12/12/18 Nasal [place]] Lansoprazole [Prevacid] 30 mg PO BID 01/24/17 12/12/18 Lisinopril-Hctz 10-12.5 mg 1 tab PO DAILY 12/21/17 12/12/18 [Zestoretic 10-12.5] Sertraline [Zoloft] 100 mg PO HS 12/21/17 12/12/18 Aspirin EC [Ecotrin Low Dose] 81 mg PO DAILY 12/12/18 12/12/18 Atorvastatin [Lipitor] 10 mg PO DAILY 12/12/18 12/12/18 Calcium Carbonate [Calcium] 600 mg PO DAILY 12/12/18 12/12/18 Cholecalciferol [Vitamin D3 (25 1,000 unit PO HS 12/12/18 12/12/18 Mcg = 1000 Iu)] Glatiramer Acetate [Copaxone] 40 mg SQ MOWEFR 12/12/18 12/12/18 Levothyroxine Sodium [Synthroid] 150 mcg PO DAILY 12/12/18 12/12/18 Loratadine [Claritin] 10 mg PO DAILY 12/12/18 12/12/18 Magnesium 200 mg PO DAILY 12/12/18 12/12/18 Allergies Allergy/AdvReac Type Severity Reaction Status Date / Time amoxicillin Allergy Rash/Hives Verified 12/12/18 07:42 Review of Systems ROS Other: All systems not noted in ROS Statement are negative. <Corinna Lepe - Last Filed: 12/12/18 08:23> ROS Other: All systems not noted in ROS Statement are negative. <Hero Graham - Last Filed: 12/12/18 10:08> ROS Statement: Those systems with pertinent positive or pertinent negative responses have been documented in the HPI. Past Medical History Past Medical History: Asthma, Hypertension Additional Past Medical History / Comment(s): MS History of Any Multi-Drug Resistant Organisms: None Reported Past Surgical History: Cholecystectomy, Hernia Repair, Orthopedic Surgery Additional Past Surgical History / Comment(s): wrist surgery, polyps removed, right knee left knee Past Anesthesia/Blood Transfusion Reactions: No Reported Reaction Additional Past Anesthesia/Blood Transfusion Reaction / Comment(s): MOTHER TOOK LONG TIME TO AWAKEN "HAD TOO MUCH." Past Psychological History: Anxiety, Depression, Panic Disorder Smoking Status: Current every day smoker Past Alcohol Use History: Daily, Occasional Past Drug Use History: Marijuana - Past Family History Father Family Medical History: Cancer Sister(s) Family Medical History: Cancer Mother Family Medical History: Cancer Additional Family Medical History / Comment(s): skin <Corinna Lepe - Last Filed: 12/12/18 08:23> General Exam Limitations: no limitations <Corinna Lepe - Last Filed: 12/12/18 08:23> - General Exam Comments Initial Comments: Physical Exam GENERAL: Patient is well-developed and well-nourished. Patient is nontoxic and well-hydrated and is in no distress. HENT: Normocephalic, Atraumatic. EYES: PERRL, EOMI PULMONARY: Unlabored respirations. CARDIOVASCULAR: RRR ABDOMEN: Nondistended SKIN: Skin is clear with no lesions or rashes and otherwise unremarkable. : Deferred NEUROLOGIC: Patient is alert and oriented x3. Moving all extremities spontaneously MUSCULOSKELETAL: Normal extremities with adequate strength and full range of motion. No lower extremity swelling or edema. No calf tenderness. PSYCHIATRIC: No suicidal or homicidal ideation Rapid speech at times disorganized, flight of ideas (Corinna Lepe) Course <Hero Graham - Last Filed: 12/12/18 10:08> Vital Signs 12/12/18 06:05 Pulse Rate 92 Respiratory 18 Rate Blood Pressure 113/70 O2 Sat by Pulse 98 Oximetry - Reevaluation(s) Reevaluation #1: 12/12/18 10:07 The patient was endorsed me at our shift change pending evaluation by the psychiatric department. Patient was evaluated and will be admitted for treatment of acute psychosis. (Hero Graham) Medical Decision Making - Lab Data Result diagrams: 12/12/18 07:15 12/12/18 07:17 <Corinna Lepe - Last Filed: 12/12/18 08:23> - Lab Data Result diagrams: 12/12/18 07:15 12/12/18 07:17 <Hero Graham - Last Filed: 12/12/18 10:08> - Medical Decision Making The patient was seen and evaluated history is obtained from the patient as well as her mother, patient was petitioned by her mother for evaluation of manic episode I do agree that the patient is having a manic episode Patient is medically cleared for evaluation by EPS Patient care DrDarion Graham pending evaluation by EPS (Corinna Lepe) - Lab Data Lab Results 12/12/18 12/12/18 12/12/18 Range/Units 06:40 07:15 07:17 WBC 11.5 H (3.8-10.6) k/uL RBC 4.59 (3.80-5.40) m/uL Hgb 12.0 (11.4-16.0) gm/dL Hct 38.2 (34.0-46.0) % MCV 83.2 (80.0-100.0) fL MCH 26.2 (25.0-35.0) pg MCHC 31.5 (31.0-37.0) g/dL RDW 14.4 (11.5-15.5) % Plt Count 220 (150-450) k/uL Neutrophils % 80 % Lymphocytes % 13 % Monocytes % 5 % Eosinophils % 1 % Basophils % 0 % Neutrophils # 9.2 H (1.3-7.7) k/uL Lymphocytes # 1.5 (1.0-4.8) k/uL Monocytes # 0.6 (0-1.0) k/uL Eosinophils # 0.2 (0-0.7) k/uL Basophils # 0.0 (0-0.2) k/uL Sodium 139 (137-145) mmol/L Potassium 4.2 (3.5-5.1) mmol/L Chloride 107 (98-107) mmol/L Carbon Dioxide 24 (22-30) mmol/L Anion Gap 8 mmol/L BUN 15 (7-17) mg/dL Creatinine 1.00 (0.52-1.04) mg/dL Est GFR (CKD-EPI)AfAm 75 (>60 ml/min/1.73 sqM) Est GFR (CKD-EPI)NonAf 65 (>60 ml/min/1.73 sqM) Glucose 120 H (74-99) mg/dL Calcium 9.2 (8.4-10.2) mg/dL Total Bilirubin 0.5 (0.2-1.3) mg/dL AST 22 (14-36) U/L ALT 23 (9-52) U/L Alkaline Phosphatase 93 (38-126) U/L Total Protein 6.7 (6.3-8.2) g/dL Albumin 4.0 (3.5-5.0) g/dL TSH 1.480 (0.465-4.680) mIU/L Urine Opiates Screen Not Detected (NotDetected) Ur Oxycodone Screen Not Detected (NotDetected) Urine Methadone Screen Not Detected (NotDetected) Ur Propoxyphene Screen Not Detected (NotDetected) Ur Barbiturates Screen Not Detected (NotDetected) U Tricyclic Antidepress Not Detected (NotDetected) Ur Phencyclidine Scrn Not Detected (NotDetected) Ur Amphetamines Screen Not Detected (NotDetected) U Methamphetamines Scrn Not Detected (NotDetected) U Benzodiazepines Scrn Not Detected (NotDetected) Urine Cocaine Screen Not Detected (NotDetected) U Marijuana (THC) Screen Detected H (NotDetected) Disposition <Corinna Lepe - Last Filed: 12/12/18 08:23> <Hero Grhaam - Last Filed: 12/12/18 10:08> Clinical Impression: Acute psychosis Disposition: TRANSFER TO PSYCH HOSP/UNIT Condition: Stable Referrals: Meghana Houston DO [Primary Care Provider] - 1-2 days
[2018-12-12 07:35] LABS: Basophils % (A) 0 %; Eosinophils # (A) 0.2 k/uL (0-0.7); Eosinophils % (A) 1 %; HCT 38.2 % (34.0-46.0); Lymphocytes # (A) 1.5 k/uL (1.0-4.8); Lymphocytes % (A) 13 %; MCH 26.2 pg (25.0-35.0); MCHC 31.5 g/dL (31.0-37.0); MCV 83.2 fL (80.0-100.0); Monocytes # (A) 0.6 k/uL (0-1.0); Monocytes % (A) 5 %; Neutrophils # (A) 9.2 k/uL (1.3-7.7); Neutrophils % (A) 80 %; Platelet Count 220 k/uL (150-450); RBC 4.59 m/uL (3.80-5.40); RDW 14.4 % (11.5-15.5); WBC 11.5 k/uL (3.8-10.6)
[2018-12-12 07:45] LABS: Amphetamine Screen,Urine Not Detected (NotDetected); Barbiturate Screen,Urine Not Detected (NotDetected); Benzodiazepines Screen,Urine Not Detected (NotDetected); Cocaine Screen,Urine Not Detected (NotDetected); Methadone Screen, Urine Not Detected (NotDetected); Opiate Screen,Urine Not Detected (NotDetected); Oxycodone Screen, Urine Not Detected (NotDetected); Phencyclidine Screen,Urine Not Detected (NotDetected); Tricyclic Antidepressant,Urine Not Detected (NotDetected); Urn Cannabinoid Scrn Detected (NotDetected)
[2018-12-12 07:52] LABS: Calcium 9.2 mg/dL (8.4-10.2); Potassium 4.2 mmol/L (3.5-5.1); Total Bilirubin 0.5 mg/dL (0.2-1.3); Total Protein 6.7 g/dL (6.3-8.2)
[2018-12-12 11:09] VITALS: BMI 37.0
[2018-12-12] MEDS ORDERED: ACETAMINOPHEN TAB 325 MG TAB PO PRN (11:34)
[2018-12-12] MEDS ORDERED: MAGNESIUM HYDROXIDE 2,400 MG/10 ML CUP PO PRN (11:34)
[2018-12-12] MEDS ORDERED: MAG HYDROX/AL HYDROX/SIMETH 30 ML CUP PO PRN (11:34)
[2018-12-12] MEDS ORDERED: ZIPRASIDONE 20 MG VIAL IM PRN (11:34)
[2018-12-12] MEDS ORDERED: LORazepam 1 MG TAB PO PRN (11:34)
--- NOTE | 2018-12-12 13:20 | P.CONS ---
History of Present Illness - Reason for Consult Consult date: 12/12/18 - History of Present Illness 53 year old with the past medical history of multiple sclerosis admitted to the psych floor and we'll consulted for medical management patient is not complaining of any chest pain or shortness of breath or vomiting at this time the patient appears in no distress Review of systems and systems has been reviewed all negative and positive findings as per history of present illness Past medical history multiple sclerosis Possible anxiety Social history smokes Family history not known at this time Surgical history also not known Constitutional: No acute distress, Eyes: Anicteric sclerae, moist conjunctiva, no lid-lag PERRLA ENMT: NC/AT Oropharynx clear, no erythema, exudates Neck: Supple, FROM, no masses, or JVD No carotid bruits No thyromegaly Lungs: Clear to auscultation Clear to percussion Normal respiratory effort, no accessory muscle use Cardiovascular: Heart regular in rate and rhythm, No murmurs, gallops, or rubs No peripheral edema Abdominal: Soft Nontender, no guarding, Skin: Normal temperature, tone, texture, turgor No induration No subcutaneous nodules No rash, lesions No ulcers Extremities: No digital cyanosis No clubbing Pedal pulses intact and symmetrical Radial pulses intact and symmetrical Normal gait and station No calf tenderness Psychiatric:Alert and oriented to person, place and time Neuro: No obvious weakness Assessment and plan Multiple sclerosis no evidence of exacerbation at this time resume home medications Anxiety Continue management as per primary team Medically stable Past Medical History Past Medical History: Asthma, Hypertension Additional Past Medical History / Comment(s): MS History of Any Multi-Drug Resistant Organisms: None Reported Past Surgical History: Cholecystectomy, Hernia Repair, Orthopedic Surgery Additional Past Surgical History / Comment(s): wrist surgery, polyps removed, right knee left knee Past Anesthesia/Blood Transfusion Reactions: No Reported Reaction Additional Past Anesthesia/Blood Transfusion Reaction / Comm: MOTHER TOOK LONG TIME TO AWAKEN "HAD TOO MUCH." Past Psychological History: Anxiety, Depression, Panic Disorder Smoking Status: Never smoker Past Alcohol Use History: Daily, Occasional Additional Past Alcohol Use History / Comment(s): SMOKED ON/OFF 30 YEARS, NOW USES E-SIGARETTE OCC. Past Drug Use History: Marijuana Additional Drug Use History / Comment(s): OCC USE - Past Family History Father Family Medical History: Cancer Sister(s) Family Medical History: Cancer Mother Family Medical History: Cancer Additional Family Medical History / Comment(s): skin Medications and Allergies Home Medications Medication Instructions Recorded Confirmed Type ALPRAZolam 0.5 mg PO DAILY PRN 09/26/15 12/12/18 History Albuterol Sulfate [Ventolin HFA] 2 puff INHALATION RT-BID PRN 09/26/15 12/12/18 History Mometasone/Formoterol [Dulera 200 2 puff INHALATION RT-BID 09/26/15 12/12/18 History Mcg/5 Mcg Inhaler] traZODone HCL [Desyrel] 50 mg PO HS 09/26/15 12/12/18 History Fluticasone Nasal [place] [Flonase 1 spr EA NOSTRIL DAILY 01/24/17 12/12/18 His tory Nasal [place]] Lansoprazole [Prevacid] 30 mg PO BID 01/24/17 12/12/18 History Lisinopril-Hctz 10-12.5 mg 1 tab PO DAILY 12/21/17 12/12/18 History [Zestoretic 10-12.5] Sertraline [Zoloft] 100 mg PO HS 12/21/17 12/12/18 History Aspirin EC [Ecotrin Low Dose] 81 mg PO DAILY 12/12/18 12/12/18 History Atorvastatin [Lipitor] 10 mg PO DAILY 12/12/18 12/12/18 History Calcium Carbonate [Calcium] 600 mg PO DAILY 12/12/18 12/12/18 History Cholecalciferol [Vitamin D3 (25 1,000 unit PO HS 12/12/18 12/12/18 History Mcg = 1000 Iu)] Glatiramer Acetate [Copaxone] 40 mg SQ MOWEFR 12/12/18 12/12/18 History Levothyroxine Sodium [Synthroid] 150 mcg PO DAILY 12/12/18 12/12/18 History Loratadine [Claritin] 10 mg PO DAILY 12/12/18 12/12/18 History Magnesium 200 mg PO DAILY 12/12/18 12/12/18 History Allergies Allergy/AdvReac Type Severity Reaction Status Date / Time amoxicillin Allergy Rash/Hives Verified 12/12/18 12:00 Physical Exam Vitals: Vital Signs Temp Pulse Pulse Resp BP BP Pulse Ox 07/24/19 11:10 97.9 F 12/12/18 11:03 97.9 F 82 16 137/86 97 12/12/18 10:48 97.9 F 63 18 118/82 97 12/12/18 06:05 92 18 113/70 98 Intake and Output 12/11/18 12/12/18 12/12/18 22:59 06:59 14:59 Other: Weight 99.79 kg 94.9 kg Results CBC & Chem 7: 12/12/18 07:15 12/12/18 07:17 Labs: Abnormal Lab Results - Last 24 Hours (Table) 12/12/18 12/12/18 12/12/18 Range/Units 06:40 07:15 07:17 WBC 11.5 H (3.8-10.6) k/uL Neutrophils # 9.2 H (1.3-7.7) k/uL Glucose 120 H (74-99) mg/dL U Marijuana (THC) Screen Detected H (NotDetected)
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
[2018-12-12] MEDS: NICOTINE 7MG/24HR PATCH TRANSDERM SCH (18:47)
[2018-12-12] MEDS: PANTOPRAZOLE 40 MG TABLET PO SCH (18:50)
[2018-12-12] MEDS ORDERED: SYMBICORT 160-4.5 MCG INHALER INHALATION SCH (20:00)
[2018-12-12] MEDS ORDERED: SERTRALINE 100 MG TAB PO SCH (21:00)
[2018-12-12] MEDS: CHOLECALCIFEROL 1,000 UNIT TAB PO SCH (21:06)
[2018-12-12] MEDS: traZODone HCL 50 MG TAB PO SCH (21:06)
[2018-12-12] MEDS: FLUTICASONE 50MCG/SPRAY NASAL 16GM EA NOSTRIL SCH (22:04)
[2018-12-13] MEDS: LEVOTHYROXINE 75 MCG TAB PO SCH (06:38)
[2018-12-13] MEDS ORDERED: LISINOPRIL-HCTZ 10-12.5 MG 1 EACH TAB PO SCH (09:00)
[2018-12-13] MEDS: MAGNESIUM OXIDE 400 MG TAB PO SCH (09:01)
[2018-12-13] MEDS: LORATADINE 10 MG TAB PO SCH (09:01)
[2018-12-13] MEDS: ASPIRIN 81 MG PO SCH (09:01)
[2018-12-13] MEDS: ATORVASTATIN 10 MG TAB PO SCH (09:01)
[2018-12-13] MEDS: DULERA INHALATION SCH ×2 (09:01→22:08)
[2018-12-13] MEDS: PANTOPRAZOLE 40 MG TABLET PO SCH ×2 (09:01→20:26)
[2018-12-13] MEDS: CALCIUM CARBONATE 500 MG CHEWABLE PO SCH (09:02)
[2018-12-13] MEDS: FLUTICASONE 50MCG/SPRAY NASAL 16GM EA NOSTRIL SCH (11:04)
[2018-12-13] MEDS: GLATIRAMER ACETATE 40 MG SQ SCH (11:04)
[2018-12-13] MEDS: NICOTINE 7MG/24HR PATCH TRANSDERM SCH (11:04)
[2018-12-13] MEDS: ALBUTEROL INHALER 60 PUFF/8 GM INHALER INHALATION PRN (11:05)
--- NOTE | 2018-12-13 14:24 | P.PN ---
Progress Note - Text Progress Note Date: 12/13/18 Interval History: Patient is a 53-year-old female who was seen today, she again exhibits pressured speech, becomes quite irritable when he tried to interrupt her or redirect her and began to get increasingly irritated in the office stating that she is getting agitated because it was an exacerbation of her multiple sclerosis, began splashing water on her face becoming increasingly agitated. 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 Mental Status: Appearance/Attitude: Patient is casually dressed, makes eye contact and is superficially cooperative Behavior: Patient does not exhibit any psychomotor retardation, she is easily agitated, constantly tapping her foot pacing in the office was splashing water on her face to stop the exacerbation of her MS Speech/Language: Patient's speech is pressured, she is coherent Thought Process: Patient is tangential, has difficulty responding to questions and staying on task Thought Content: Patient denies any auditory or visual hallucinations, she continues to exhibit some grandiose ideation, she complains about her family at one point stating they were verbally abusive, that her mother doesn't know what she is talking about, stating that they don't listen to her and cause her to feel the way she is now. She reports her family as the cause of her stress and therefore the exacerbation of her MS. Patient states she slept well and states she has been eating. Suicidal/Homicidal Ideation: Patient denies any current suicidal or homicidal ideation Sensorium/Cognition: Patient is alert and oriented to person, place and time Mood/Affect: Patient's mood is labile going from being pleasant to irritable, angry and tearful. Affect appropriate to her mood Insight/Judgment: Patient's insight and judgment are fair Assessment: Patient required much redirection during the interview, she was finally able to listen to me discussed medication, and we had a discussion regarding the use of Abilify. Patient was reluctant to restart Depakote which she states caused her to become depressed and sedated over the summer and what had apparently been tapered off by her private psychiatrist as well as an unknown antipsychotic that she was also taking and continued taking her trazodone and Zoloft. Patient continued to have difficulty accepting that her symptoms or evidence of amarilis as she continues to relate that they are related to her MS. Patient did sleep and is eating. Plan: Patient was agreeable to taking Abilify and will start 5 mg at bedtime, she will continue on trazodone 50 mg at bedtime and her Zoloft is 50 mg daily. I will continue to titrate the Abilify to target her mood. Patient continues to require hospitalization to further stabilize her mood.
[2018-12-13 15:43] LABS: Hemoglobin A1C 6.2 % (4.0-6.0)
[2018-12-13] MEDS: NICOTINE 14MG/24HR PATCH TRANSDERM SCH (15:47)
[2018-12-13] MEDS: ARIPiprazole 5 MG TAB PO SCH (20:26)
[2018-12-13] MEDS: CHOLECALCIFEROL 1,000 UNIT TAB PO SCH (20:26)
[2018-12-13] MEDS: LISINOPRIL-HCTZ 10-12.5 MG 1 EACH TAB PO SCH (20:26)
[2018-12-13] MEDS: SERTRALINE 50 MG TAB PO SCH (20:26)
[2018-12-13] MEDS: traZODone HCL 50 MG TAB PO SCH (20:26)
[2018-12-14] MEDS: LEVOTHYROXINE 75 MCG TAB PO SCH (06:06)
[2018-12-14] MEDS: CALCIUM CARBONATE 500 MG CHEWABLE PO SCH ×2 (08:53)
[2018-12-14] MEDS: ASPIRIN 81 MG PO SCH (08:54)
[2018-12-14] MEDS: ATORVASTATIN 10 MG TAB PO SCH (08:54)
[2018-12-14] MEDS: PANTOPRAZOLE 40 MG TABLET PO SCH ×2 (08:54→17:26)
[2018-12-14] MEDS: LORATADINE 10 MG TAB PO SCH (08:54)
[2018-12-14] MEDS: DULERA INHALATION SCH ×2 (08:55→21:34)
[2018-12-14] MEDS: MAGNESIUM OXIDE 400 MG TAB PO SCH (08:55)
[2018-12-14] MEDS: NICOTINE 14MG/24HR PATCH TRANSDERM SCH (08:55)
[2018-12-14] MEDS: FLUTICASONE 50MCG/SPRAY NASAL 16GM EA NOSTRIL SCH (08:55)
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
[2018-12-14] MEDS: SERTRALINE 50 MG TAB PO SCH (21:32)
[2018-12-14] MEDS: ARIPiprazole 5 MG TAB PO SCH (21:32)
[2018-12-14] MEDS: CHOLECALCIFEROL 1,000 UNIT TAB PO SCH (21:32)
[2018-12-14] MEDS: LISINOPRIL-HCTZ 10-12.5 MG 1 EACH TAB PO SCH (21:33)
[2018-12-14] MEDS: BACITRACIN 500 UNIT/GM OINT 28.4 GM TUBE TOPICAL SCH (21:34)
[2018-12-14] MEDS: traZODone HCL 50 MG TAB PO SCH (22:57)
[2018-12-15] MEDS: LEVOTHYROXINE 75 MCG TAB PO SCH (06:36)
[2018-12-15] MEDS: ALBUTEROL INHALER 60 PUFF/8 GM INHALER INHALATION PRN (07:30)
[2018-12-15] MEDS: FLUTICASONE 50MCG/SPRAY NASAL 16GM EA NOSTRIL SCH ×2 (08:12→21:26)
[2018-12-15] MEDS: ASPIRIN 81 MG PO SCH (08:12)
[2018-12-15] MEDS: PANTOPRAZOLE 40 MG TABLET PO SCH ×2 (08:12→17:49)
[2018-12-15] MEDS: LORATADINE 10 MG TAB PO SCH (08:12)
[2018-12-15] MEDS: ATORVASTATIN 10 MG TAB PO SCH (08:12)
[2018-12-15] MEDS: DULERA INHALATION SCH ×2 (08:13→22:51)
[2018-12-15] MEDS: GLATIRAMER ACETATE 40 MG SQ SCH (08:48)
[2018-12-15] MEDS: MAGNESIUM OXIDE 400 MG TAB PO SCH (08:52)
[2018-12-15] MEDS: BACITRACIN 500 UNIT/GM OINT 28.4 GM TUBE TOPICAL SCH ×3 (08:52→21:26)
[2018-12-15] MEDS: NICOTINE 14MG/24HR PATCH TRANSDERM SCH (08:52)
--- NOTE | 2018-12-15 12:00 | P.PN ---
Progress Note - Text Progress Note Date: 12/15/18 Interval History: Patient is a 53-year-old female who was seen today, she states that she wants to leave she thinks she is doing well. Patient had a family meeting with her mother this morning and she states that her mother has never stated that she wasn't eating. Patient states that she is sleeping well and continues to insist that all of her symptoms are secondary to her multiple sclerosis. Mental Status: Appearance/Attitude: Patient is neatly dressed, makes eye contact and is cooperative Behavior: Patient does not exhibit any psychomotor agitation or retardation Speech/Language: Patient's speech remains pressured, of normal volume and she is coherent Thought Process: Patient remains tangential and circumstantial Thought Content: Patient denies any auditory or visual hallucination and no delusions or paranoid ideation or elicited. Patient insist that she sleeping well at night and has been sleeping well even at home. Patient continues to insist that her pressured speech, her anxiety and agitation are all secondary to MS. Patient remains focused on her need to take care of the lawn as a way to relax, the issues and difficulties that she has with her and son and states that everybody is always calling her because they're having breakdowns. Suicidal/Homicidal Ideation: Patient denies any current suicidal or homicidal ideation Sensorium/Cognition: Patient is alert and oriented to person, place and time and her recent and remote memory are grossly intact Mood/Affect: Patient's mood remains labile her affect is appropriate to her mood Insight/Judgment: Patient insight and judgment is fair Assessment: Patient stated today that she had seen a psychiatrist only once 5 days prior to admission and her Zoloft was increased by the psychiatrist to 100 mg of Zoloft. I spoke with social work who had a family meeting today with the patient and her mother and a social insurance specialist states that the patient continue to focus and ruminate about the mowing of the lawn, the fact that she had been sleeping and her mother stated that she had not been sleeping and that they had contacted the police to bring her to the hospital to prevent what occurred the last time she was hospitalized. Patient's mother confirmed that the patient had been outside doing yard work for long periods of time and in inclement weather. Patient remains pressured and focused on lawn care, her need to do this fact that she controls her MS and all of her symptoms are secondary to MS exacerbat ions. Plan: We'll increase the patient's Abilify to 10 mg at bedtime continue the Zoloft at 50 and the trazodone 50 mg at bedtime. Patient continues to require hospitalization to further stabilize her mood.
[2018-12-15] MEDS: ARIPiprazole 10 MG TAB PO SCH (21:26)
[2018-12-15] MEDS: LISINOPRIL-HCTZ 10-12.5 MG 1 EACH TAB PO SCH (21:26)
[2018-12-15] MEDS: SERTRALINE 50 MG TAB PO SCH (21:27)
[2018-12-15] MEDS: CHOLECALCIFEROL 1,000 UNIT TAB PO SCH (21:27)
[2018-12-15] MEDS: traZODone HCL 50 MG TAB PO SCH (22:51)
[2018-12-16] MEDS: LEVOTHYROXINE 75 MCG TAB PO SCH (06:27)
[2018-12-16] MEDS: PANTOPRAZOLE 40 MG TABLET PO SCH ×2 (08:27→17:29)
[2018-12-16] MEDS: NICOTINE 14MG/24HR PATCH TRANSDERM SCH (08:28)
[2018-12-16] MEDS: ASPIRIN 81 MG PO SCH (08:28)
[2018-12-16] MEDS: ATORVASTATIN 10 MG TAB PO SCH (08:28)
[2018-12-16] MEDS: MAGNESIUM OXIDE 400 MG TAB PO SCH (08:28)
[2018-12-16] MEDS: LORATADINE 10 MG TAB PO SCH (08:28)
[2018-12-16] MEDS: CALCIUM CARBONATE 500 MG CHEWABLE PO SCH (08:30)
[2018-12-16] MEDS: DULERA INHALATION SCH ×2 (08:36→19:33)
[2018-12-16] MEDS: FLUTICASONE 50MCG/SPRAY NASAL 16GM EA NOSTRIL SCH ×2 (08:36→21:33)
[2018-12-16] MEDS: BACITRACIN 500 UNIT/GM OINT 28.4 GM TUBE TOPICAL SCH ×2 (08:37→21:34)
--- NOTE | 2018-12-16 10:20 | P.PN ---
Progress Note - Text Progress Note Date: 12/16/18 Interval History: Patient is a 53-year-old female who was seen today, patient states that she had a good conversation and visit with her yesterday and states that her son is found a new job and she is hopeful that this will give her more quiet time at home. Patient was less pressured today and did not ruminate about mowing the lawn, her MS symptoms. Patient states that she slept about 5 hours last night and had some cramping in her legs over sleep wasn't as restful as it had been in the past. Mental Status: Appearance/Attitude: Patient is casually dressed, makes eye contact and is cooperative Behavior: Patient does not display any psychomotor agitation or retardation Speech/Language: Patient's speech is much less pressured today, speech is of normal volume and rhythm and she is coherent Thought Process: Patient is goal-directed, still slightly circumstantial Thought Content: Patient denies any auditory or visual hallucinations, no delusions or paranoid ideation or elicited. Patient is less pressured, less circumstantial today and discussed her visit with her in conversation with him about their relationship. She is also hopeful that her son's new job will work out better for her as he will be working the afternoon shift giving both her and her time at home alone. Patient states that she slept fairly well last night but did have a cramp in her leg that kept her up for a bit. She is eating well Suicidal/Homicidal Ideation: Patient denies any current suicidal or homicidal ideation Sensorium/Cognition: Patient is alert and oriented to person, place and time and her recent and remote memory are grossly intact Mood/Affect: Patient's mood is less labile and her affect is appropriate Insight/Judgment: Patient's insight and judgment are fair Assessment: Patient was less pressured today, her mood is much less labile and she was much less focused on mowing the lawn, her MS symptoms being the cause of all of her difficulties. Patient states that her visit and conversations with her went much better yesterday. Patient reports no side effects from medication and has been attending groups and activities. Plan: Patient will continue on Abilify 10 mg to target her mood, Zoloft 50 mg to assist with her anxiety and trazodone 50 mg to target her sleep. Patient states that she is not having any side effects and continues to require hospitalization to further stabilize her mood.
[2018-12-16] MEDS: ALBUTEROL INHALER 60 PUFF/8 GM INHALER INHALATION PRN (15:38)
[2018-12-16] MEDS: SERTRALINE 50 MG TAB PO SCH (21:33)
[2018-12-16] MEDS: CHOLECALCIFEROL 1,000 UNIT TAB PO SCH (21:33)
[2018-12-16] MEDS: LISINOPRIL-HCTZ 10-12.5 MG 1 EACH TAB PO SCH (21:33)
[2018-12-16] MEDS: ARIPiprazole 10 MG TAB PO SCH (21:33)
[2018-12-16] MEDS: traZODone HCL 50 MG TAB PO SCH (21:33)
[2018-12-17 06:44] VITALS: BP 112/61; PULSE 79; RESP 16; TEMP 98.1
[2018-12-17] MEDS: LEVOTHYROXINE 75 MCG TAB PO SCH (06:44)
[2018-12-17] MEDS: GLATIRAMER ACETATE 40 MG SQ SCH (08:48)
[2018-12-17] MEDS: PANTOPRAZOLE 40 MG TABLET PO SCH (08:50)
[2018-12-17] MEDS: ASPIRIN 81 MG PO SCH (08:50)
[2018-12-17] MEDS: FLUTICASONE 50MCG/SPRAY NASAL 16GM EA NOSTRIL SCH (08:50)
[2018-12-17] MEDS: NICOTINE 14MG/24HR PATCH TRANSDERM SCH (08:50)
[2018-12-17] MEDS: ATORVASTATIN 10 MG TAB PO SCH (08:50)
[2018-12-17] MEDS: DULERA INHALATION SCH (08:50)
[2018-12-17] MEDS: LORATADINE 10 MG TAB PO SCH (08:50)
[2018-12-17] MEDS: MAGNESIUM OXIDE 400 MG TAB PO SCH (08:51)
[2018-12-17] MEDS: BACITRACIN 500 UNIT/GM OINT 28.4 GM TUBE TOPICAL SCH (10:45)
[2018-12-17] MEDS: CALCIUM CARBONATE 500 MG CHEWABLE PO SCH (10:49)
--- NOTE | 2018-12-17 12:04 | P.DS ---
Providers Date of admission: 12/12/18 10:11 Expected date of discharge: 12/17/18 Attending physician: Jazzmine Gandhi MD Consults: 12/12/18 11:34 Consult Physician Routine Consulting Provider: Luis Todd Consult Reason/Comments: H & P and medical care Do you want consulting provider notified?: Already Contacted Primary care physician: Meghana Houston Hospital Course: Discharge Diagnosis: Bipolar disorder type I, current episode manic Reason for Admission: Patient is a 53-year-old female who was brought to the emergency room by her mother because she was acting manic, mowing the lawn obsessively, talking rapidly. Patient was interviewed and is a poor historian. Patient stated that she has multiple sclerosis and has recently been feeling well from a physical standpoint and that's why she's been out and gardening. 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 She states that she mows initiate as well as Jere while she is wet from full and that the mower moves fast and so there is a big breeze to keep her cool. She states that the other day she was outside doing yoga poses against tree because she is a poor sense of balance and got a bee sting and began crying. She complained about her family bringing her here stating that they interrupt her at home all the time and states that she needs to be on medication for her amarilis but she denies this. Patient states that her and son don't get along and she was trying to tell them how to deal with each other specifically her to deal with her son but they won't let her talk. She states that she tries to take care of everyone's problems. She dressed grinds herself as being the family blue and they have to let her grow. She states that she's been trying to communicate differently with her family but no one can hear her. She then stated that she is never depressed and then went onto later state that she was feeling more depressed than ever this past summer. She blames that on medication she had been started on when she was in [facility] last summer. Patient states that she is the intelligent one in the family and the one who works and has always had a great ideas telling me that she at one point had an idea to write a book as well as to start websites for ideas for products made in the [employer] and that these ideas would've made a lot of money if people had taken them seriously. She told me that she can't give me a history because her thoughts are chaotic but this is due to her multiple sclerosis. Patient denies that she is not sleeping, stating that she uses a CPAP machine and reports her sleep and she sleeps anywhere from 6-13 hours a night. 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 Patient denies that she is often sleeping or eating. Patient denies ever feeling depressed and states that she felt very depressed last summer and also after her brother committed suicide in 1998. She states that she was "in charge of his not committing suicide" and her told her not to stay around him all the time and he then went into the hospital and once he was discharged committed suicide. Patient is unable to give me a history of her symptoms, even when asking the patient if she is unable felt a certain way she is not able to respond to questions that she needs constant radha bal redirection to stay on task. Patient states that she is anxious but can't tell me about what and then describes having panic attacks where she thought she was having a heart attack and acting hysterical. Mental status on Admission: Appearance/Attitude: Patient is dressed in a hospital gown, makes eye contact is superficially cooperative Behavior: Patient does not exhibit any psychomotor retardation but is easily irritated, labile in the office Speech/Language: Patient's speech is pressured, of normal volume and she is coherent Thought Process: Patient is tangential Thought Content: Patient denies auditory or visual hallucinations, no paranoid ideation is elicited, but the patient is grandiose in her descriptions of her prior employment and ideas about writing a book and creating websites. Patient also states that she is the intelligent one in the family, the one that keeps the family together and describes herself as the glue in the family and that all of her other family members should be in the hospital and not her. Patient states that she has been sleeping anywhere from 6-13 hours a night. Suicidal/Homicidal Ideation: Patient denies any current suicidal or homicidal ideation Sensorium/Cognition: Patient is alert and oriented to person, place and time Mood/Affect: Patient's mood is labile 1 minute she was angry in the office the next minute she was tearful and crying and the patient affect is appropriate to her mood Insight/Judgment: Patient's insight and judgment are limited Hospital Course: Patient was admitted on an involuntary basis, she did defer her hearing. Patient was placed on routine observation in group and activity therapy were ordered and the patient did attend groups and activities. She had routine laboratory studies and a medical consultation was continued on her medications for her medical problems. Patient was continued on her trazodone 50 mg at bedtime and I decreased her Zoloft to 50 mg daily as she states that it is recently been increased to 100. Patient was not continued on her Xanax while in the hospital. Patient initially refused any mood stabilizers but eventually she and I discussed beginning Abilify to target her mood symptoms. She was begun at 5 mg titrated to a dose of 10 mg at bedtime. Patient improved and her speech became less pressured, she did not have any more episodes where she became quite agitated and anxious and describes these as her exacerbations of MS. Patient was able to discuss her concerns during the meetings without becoming agitated. Patient was sleeping 6-7 hours a night, her appetite was good. Patient was able to report that the medications had been helpful, she was no longer focused on mowing her lawn, that all of her symptoms were secondary to her MS. She states that she and her were doing better. Patient reported no side effects from the medication and she felt she was ready for discharge. Allergies amoxicillin Allergy (Verified 12/12/18 12:00) Rash/Hives Laboratory Last Values WBC 11.5 k/uL (3.8-10.6) H 12/12/18 07:15 RBC 4.59 m/uL (3.80-5.40) 12/12/18 07:15 Hgb 12.0 gm/dL (11.4-16.0) 12/12/18 07:15 Hct 38.2 % (34.0-46.0) 12/12/18 07:15 MCV 83.2 fL (80.0-100.0) 12/12/18 07:15 MCH 26.2 pg (25.0-35.0) 12/12/18 07:15 MCHC 31.5 g/dL (31.0-37.0) 12/12/18 07:15 RDW 14.4 % (11.5-15.5) 12/12/18 07:15 Plt Count 220 k/uL (150-450) 12/12/18 07:15 Neutrophils % 80 % 12/12/18 07:15 Lymphocytes % 13 % 12/12/18 07:15 Monocytes % 5 % 12/12/18 07:15 Eosinophils % 1 % 12/12/18 07:15 Basophils % 0 % 12/12/18 07:15 Neutrophils # 9.2 k/uL (1.3-7.7) H 12/12/18 07:15 Lymphocytes # 1.5 k/uL (1.0-4.8) 12/12/18 07:15 Monocytes # 0.6 k/uL (0-1.0) 12/12/18 07:15 Eosinophils # 0.2 k/uL (0-0.7) 12/12/18 07:15 Basophils # 0.0 k/uL (0-0.2) 12/12/18 07:15 Sodium 139 mmol/L (137-145) 12/12/18 07:17 Potassium 4.2 mmol/L (3.5-5.1) 12/12/18 07:17 Chloride 107 mmol/L (98-107) 12/12/18 07:17 Carbon Dioxide 24 mmol/L (22-30) 12/12/18 07:17 Anion Gap 8 mmol/L 12/12/18 07:17 BUN 15 mg/dL (7-17) 12/12/18 07:17 Creatinine 1.00 mg/dL (0.52-1.04) 12/12/18 07:17 Est GFR (CKD-EPI)AfAm 75 (>60 ml/min/1.73 sqM) 12/12/18 07:17 Est GFR (CKD-EPI)NonAf 65 (>60 ml/min/1.73 sqM) 12/12/18 07:17 Glucose 120 mg/dL (74-99) H 12/12/18 07:[address] Glu mg/dL 131 12/12/18 07:15 Hemoglobin A1c 6.2 % (4.0-6.0) H 12/12/18 07:15 Calcium 9.2 mg/dL (8.4-10.2) 12/12/18 07:17 Total Bilirubin 0.5 mg/dL (0.2-1.3) 12/12/18 07:17 AST 22 U/L (14-36) 12/12/18 07:17 ALT 23 U/L (9-52) 12/12/18 07:17 Alkaline Phosphatase 93 U/L (38-126) 12/12/18 07:17 Total Protein 6.7 g/dL (6.3-8.2) 12/12/18 07:17 Albumin 4.0 g/dL (3.5-5.0) 12/12/18 07:17 Triglycerides 105 mg/dL (<150) 12/12/18 07:17 Cholesterol 156 mg/dL (<200) 12/12/18 07:17 LDL Cholesterol, Calc 71 mg/dL (0-99) 12/12/18 07:17 HDL Cholesterol 64 mg/dL (40-60) H 12/12/18 07:17 TSH 1.430 mIU/L (0.465-4.680) 12/12/18 07:17 Urine Opiates Screen Not Detected (NotDetected) 12/12/18 06:40 Ur Oxycodone Screen Not Detected (NotDetected) 12/12/18 06:40 Urine Methadone Screen Not Detected (NotDetected) 12/12/18 06:40 Ur Propoxyphene Screen Not Detected (NotDetected) 12/12/18 06:40 Ur Barbiturates Screen Not Detected (NotDetected) 12/12/18 06:40 U Tricyclic Antidepress Not Detected (NotDetected) 12/12/18 06:40 Ur Phencyclidine Scrn Not Detected (NotDetected) 12/12/18 06:40 Ur Amphetamines Screen Not Detected (NotDetected) 12/12/18 06:40 U Methamphetamines Scrn Not Detected (NotDetected) 12/12/18 06:40 U Benzodiazepines Scrn Not Detected (NotDetected) 12/12/18 06:40 Urine Cocaine Screen Not Detected (NotDetected) 12/12/18 06:40 U Marijuana (THC) Screen Detected (NotDetected) H 12/12/18 06:40 Discharge Mental Status: Appearance/Attitude: Patient is casually dressed, makes eye contact and is cooperative Behavior: patient does not exhibit any psychomotor agitation or retardation Speech/Language: patient's speech is spontaneous and is of normal volume and rhythm and she is coherent Thought Process: patient is goal-directed, no evidence of loose association or flight of ideas Thought Content: patient denies any auditory or visual hallucinations and no delusions or paranoid ideation are elicited. Patient is less focused on mowing the lawn, that all of her symptoms are based on her MS. Patient is sleeping etc. hours a night and is eating. She reports no racing thoughts. Suicidal/Homicidal Ideation: patient denies any current suicidal or homicidal ideation Sensorium/Cognition: patient is alert and oriented to person, place, and time and her recent and remote memory are grossly intact Mood/Affect: patient's mood is stable and her affect is appropriate to her mood Insight/Judgment: patient's insight and judgment are fair Risk Assessment: patient's risk for readmission is moderate should the patient not be compliant with medication and follow-up Discharge Plan: patient will return home to live with her family, she will follow-up with her private psychiatrist Dr. Atkinson. Patient will continue on Ab ilify 10 mg at bedtime, Zoloft 50 mg a day and trazodone 50 mg at bedtime. Patient also requested a prescription for nicotine patch and will be given a prescription for that as well as the Abilify, the patient states she has up all of her other medications at home. Patient was advised to avoid all alcohol and drugs. She was advised to be compliant with medication and follow-up care. Patient Condition at Discharge: Stable Plan - Discharge Summary Discharge Rx Participant: No New Discharge Prescriptions: New ARIPiprazole [Abilify] 10 mg PO HS #14 tab Bacitracin Oint 1 applic TOPICAL BID applic Dulera Patients Own Med 2 puff INHALATION RT-BID Glatiramer Acetate 40 mg SQ Q48H Nicotine 7Mg/24Hr Patch [Habitrol] 1 patch TRANSDERM DAILY #14 patch.td24 Sertraline [Zoloft] 50 mg PO HS tab Continue traZODone HCL [Desyrel] 50 mg PO HS Mometasone/Formoterol [Dulera 200 Mcg/5 Mcg Inhaler] 2 puff INHALATION RT-BID Albuterol Sulfate [Ventolin HFA] 2 puff INHALATION RT-BID PRN PRN Reason: Shortness Of Breath Lansoprazole [Prevacid] 30 mg PO BID Fluticasone Nas[place] [Flonase Nasal [place]] 1 spr EA NOSTRIL DAILY Lisinopril-Hctz 10-12.5 mg [Zestoretic 10-12.5] 1 tab PO DAILY Loratadine [Claritin] 10 mg PO DAILY Magnesium 200 mg PO DAILY Glatiramer Acetate [Copaxone] 40 mg SQ MOWEFR Cholecalciferol [Vitamin D3 (25 Mcg = 1000 Iu)] 1,000 unit PO HS Calcium Carbonate [Calcium] 600 mg PO DAILY Atorvastatin [Lipitor] 10 mg PO DAILY Levothyroxine Sodium [Synthroid] 150 mcg PO DAILY Aspirin EC [Ecotrin Low Dose] 81 mg PO DAILY Discontinued ALPRAZolam 0.5 mg PO DAILY PRN PRN Reason: Anxiety Sertraline [Zoloft] 100 mg PO HS Discharge Medication List Albuterol Sulfate [Ventolin HFA] 2 puff INHALATION RT-BID PRN 09/26/15 [History] Mometasone/Formoterol [Dulera 200 Mcg/5 Mcg Inhaler] 2 puff INHALATION RT-BID 09/26/15 [History] traZODone HCL [Desyrel] 50 mg PO HS 09/26/15 [History] Fluticasone Nasal [place] [Flonase Nasal [place]] 1 spr EA NOSTRIL DAILY 01/24/17 [History] Lansoprazole [Prevacid] 30 mg PO BID 01/24/17 [History] Lisinopril-Hctz 10-12.5 mg [Zestoretic 10-12.5] 1 tab PO DAILY 12/21/17 [History] Aspirin EC [Ecotrin Low Dose] 81 mg PO DAILY 12/12/18 [History] Atorvastatin [Lipitor] 10 mg PO DAILY 12/12/18 [History] Calcium Carbonate [Calcium] 600 mg PO DAILY 12/12/18 [History] Cholecalciferol [Vitamin D3 (25 Mcg = 1000 Iu)] 1,000 unit PO HS 12/12/18 [History] Glatiramer Acetate [Copaxone] 40 mg SQ MOWEFR 12/12/18 [History] Levothyroxine Sodium [Synthroid] 150 mcg PO DAILY 12/12/18 [History] Loratadine [Claritin] 10 mg PO DAILY 12/12/18 [History] Magnesium 200 mg PO DAILY 12/12/18 [History] ARIPiprazole [Abilify] 10 mg PO HS #14 tab 12/17/18 [Rx] Bacitracin Oint 1 applic TOPICAL BID applic 12/17/18 [Rx] Dulera Patients Own Med 2 puff INHALATION RT-BID 12/17/18 [Rx] Glatiramer Acetate 40 mg SQ Q48H 12/17/18 [Rx] Nicotine 7Mg/24Hr Patch [Habitrol] 1 patch TRANSDERM DAILY #14 patch.td24 12/17/18 [Rx] Sertraline [Zoloft] 50 mg PO HS tab 12/17/18 [Rx] Follow up Appointment(s)/Referral(s): [facility] [Other] - 12/18/18 2:30 pm Meghana Houston DO [Primary Care Provider] - 1-2 days Patient Instructions/Handouts: Stress (DC), Bipolar Disorder (DC), Suicide Prevention (DC) Discharge Disposition: HOME SELF-CARE
== END 2018-12-17 14:52 | disposition home or self-care (01) | DRG 885 ==
LOC: EC 06:01 → 3MHU 10:11
PROVIDERS: ADMIT Psychiatry & Neurology Psychiatry; ATTEND Psychiatry & Neurology Psychiatry
DX: F31.9 Bipolar disorder, unspecified (principal); I10 Essential (primary) hypertension; J45.909 Unspecified asthma, uncomplicated; G35 Multiple sclerosis; F41.0 Panic disorder [episodic paroxysmal anxiety]; F17.200 Nicotine dependence, unspecified, uncomplicated; Z96.653 Presence of artificial knee joint, bilateral; Z79.899 Other long term (current) drug therapy; Z90.49 Acquired absence of other specified parts of digestive tract; Z80.8 Family history of malignant neoplasm of other organs or systems; Z79.51 Long term (current) use of inhaled steroids; Z79.890 Hormone replacement therapy; Z88.0 Allergy status to penicillin; Z79.82 Long term (current) use of aspirin; Z81.8 Family history of other mental and behavioral disorders
CPT/HCPCS: 36415; 80053; 80061; 80306; 82075; 83036; 84443; 85025; 99285

== ENCOUNTER 2019-11-16 00:13 | Emergency (ER) | payer OTHER ==
--- NOTE | 2019-11-16 00:38 | ED ---
Psych HPI - General Chief Complaint: Psychiatric Symptoms Stated Complaint: Mental Health Time Seen by Provider: 11/16/19 00:27 Source: patient, EMS, RN notes reviewed, old records reviewed Mode of arrival: EMS - History of Present Illness Initial Comments: This is a 54-year-old female DF for evaluation patient comes in by PD for psychiatric evaluation patient severely intoxicated refusing to participating questioning according to petition patient is petition for psychiatric treatment MD Complaint: suicidal ideation, feels depressed -: days(s) Associated Psychiatric Symptoms: depression, suicidal ideation History of same: Yes (Integument to start on at) Quality: constant Improves With: none Worsens With: none Context: recent alcohol abuse Associated Symptoms: denies other symptoms Treatments Prior to Arrival: placed on mental health hold - Related Data Home Medications Medication Instructions Recorded Confirmed Albuterol Sulfate [Ventolin HFA] 2 puff INHALATION RT-BID PRN 09/26/15 11/17/19 Mometasone/Formoterol [Dulera 200 2 puff INHALATION RT-BID 09/26/15 11/17/19 Mcg/5 Mcg Inhaler] traZODone HCL [Desyrel] 50 mg PO HS@2330 PRN 09/26/15 11/17/19 Fluticasone Nasal [place] [Flonase 2 spr EA NOSTRIL BID 01/24/17 11/17/19 Nasal [place]] Lansoprazole [Prevacid] 30 mg PO BID 01/24/17 11/17/19 Lisinopril-Hctz 10-12.5 mg 1 tab PO DAILY 12/21/17 11/17/19 [Zestoretic 10-12.5] Aspirin EC [Ecotrin Low Dose] 81 mg PO DAILY 12/12/18 11/17/19 Atorvastatin [Lipitor] 10 mg PO DAILY 12/12/18 11/17/19 Cholecalciferol [Vitamin D3 (25 1,000 unit PO HS 12/12/18 11/17/19 Mcg = 1000 Iu)] Levothyroxine Sodium [Synthroid] 150 mcg PO DAILY 12/12/18 11/17/19 Loratadine [Claritin] 10 mg PO DAILY 12/12/18 11/17/19 Magnesium 200 mg PO DAILY 12/12/18 11/17/19 ALPRAZolam [Xanax] 0.25 - 0.5 mg PO DAILY PRN 11/17/19 11/17/19 Ascorbic Acid [Vitamin C] 500 mg PO DAILY 11/17/19 11/17/19 Ascorbic Acid/Multivit-Min 1,000 mg PO DAILY 11/17/19 11/17/19 [Emergen-C 1,000 mg Packet] Loratadine-Pseudoeph 10-240 mg 1 tab PO DAILY 11/17/19 11/17/19 [Claritin-D 24 Hour] Potassium Gluconate 99 mg PO DAILY 11/17/19 11/17/19 lamoTRIgine [LaMICtal] 25 mg PO BID 11/17/19 11/17/19 predniSONE See Taper PO DAILY 11/17/19 11/17/19 traZODone HCL [Desyrel] 100 mg PO HS@2330 PRN 11/17/19 11/17/19 Previous Rx's Medication Instructions Recorded Glatiramer Acetate 40 mg SQ Q48H 12/17/18 Sertraline [Zoloft] 50 mg PO HS tab 12/17/18 Allergies Allergy/AdvReac Type Severity Reaction Status Date / Time amoxicillin Allergy Rash/Hives Verified 11/17/19 12:40 Review of Systems ROS Statement: Those systems with pertinent positive or pertinent negative responses have been documented in the HPI. ROS Other: All systems not noted in ROS Statement are negative. Past Medical History Past Medical History: Asthma, Hypertension Additional Past Medical History / Comment(s): MS History of Any Multi-Drug Resistant Organisms: None Reported Past Surgical History: Cholecystectomy, Hernia Repair, Orthopedic Surgery Additional Past Surgical History / Comment(s): wrist surgery, polyps removed, right knee left knee Past Anesthesia/Blood Transfusion Reactions: No Reported Reaction Additional Past Anesthesia/Blood Transfusion Reaction / Comment(s): MOTHER TOOK LONG TIME TO AWAKEN "HAD TOO MUCH." Past Psychological History: Anxiety, Depression, Panic Disorder Smoking Status: Never smoker Past Alcohol Use History: Daily, Occasional Past Drug Use History: Marijuana - Past Family History Father Family Medical History: Cancer Sister(s) Family Medical History: Cancer Mother Family Medical History: Cancer Additional Family Medical History / Comment(s): skin General Exam Limitations: physical limitation General appearance: alert, appears intoxicated Head exam: Present: atraumatic, normocephalic, normal inspection Eye exam: Present: normal appearance, PERRL, EOMI. Absent: scleral icterus, conjunctival injection, periorbital swelling ENT exam: Present: normal exam, mucous membranes moist Neck exam: Present: normal inspection. Absent: tenderness, meningismus, lymphadenopathy Respiratory exam: Present: normal lung sounds bilaterally. Absent: respiratory distress, wheezes, rales, rhonchi, stridor Cardiovascular Exam: Present: regular rate, normal rhythm, normal heart sounds. Absent: systolic murmur, diastolic murmur, rubs, gallop, clicks GI/Abdominal exam: Present: soft, normal bowel sounds. Absent: distended, tenderness, guarding, rebound, rigid Extremities exam: Present: normal inspection, full ROM, normal capillary refill. Absent: tenderness, pedal edema, joint swelling, calf tenderness Back exam: Present: normal inspection Neurological exam: Present: alert, oriented X3, CN II-XII intact Psychiatric exam: Present: normal affect, normal mood Skin exam: Present: warm, dry, intact, normal color. Absent: rash Course Vital Signs 11/16/19 11/16/19 11/16/19 00:22 00:46 14:46 Temperature 99.0 F 98.8 F Pulse Rate 72 Respiratory 16 18 Rate Blood Pressure 161/89 107/73 O2 Sat by Pulse 100 Oximetry 11/16/19 11/17/19 11/17/19 23:00 06:13 13:43 Temperature 98.8 F 98.5 F Pulse Rate 72 70 Respiratory 18 16 16 Rate Blood Pressure 107/73 137/71 O2 Sat by Pulse 100 99 Oximetry 11/17/19 11/18/19 14:02 03:28 Temperature 98.4 F Pulse Rate 78 77 Respiratory 18 21 Rate Blood Pressure 147/80 147/80 O2 Sat by Pulse 96 97 Oximetry - Reevaluation(s) Reevaluation #1: 11/18/19 05:13 Medical records reviewed and patient was made medically clear for psychiatric evaluation patient was seen in however psychiatry Medical Decision Making - Medical Decision Making 44 female with alcohol intoxication suicidal ideation and depression. Patient will be transferred for inpatient psychiatric treatment and admission - Lab Data Result diagrams: 11/16/19 06:43 11/16/19 06:43 Lab Results 11/16/19 11/16/19 11/16/19 Range/Units 00:44 00:46 06:05 WBC (3.8-10.6) k/uL RBC (3.80-5.40) m/uL Hgb (11.4-16.0) gm/dL Hct (34.0-46.0) % MCV (80.0-100.0) fL MCH (25.0-35.0) pg MCHC (31.0-37.0) g/dL RDW (11.5-15.5) % Plt Count (150-450) k/uL Hypochromasia Microcytosis Sodium (137-145) mmol/L Potassium (3.5-5.1) mmol/L Chloride (98-107) mmol/L Carbon Dioxide (22-30) mmol/L Anion Gap mmol/L BUN (7-17) mg/dL Creatinine (0.52-1.04) mg/dL Est GFR (CKD-EPI)AfAm (>60 ml/min/1.73 sqM) Est GFR (CKD-EPI)NonAf (>60 ml/min/1.73 sqM) Glucose (74-99) mg/dL Calcium (8.4-10.2) mg/dL Total Bilirubin (0.2-1.3) mg/dL AST (14-36) U/L ALT (4-34) U/L Alkaline Phosphatase (38-126) U/L Total Protein (6.3-8.2) g/dL Albumin (3.5-5.0) g/dL Urine Color Colorless Urine Appearance Clear (Clear) Urine pH 6.0 (5.0-8.0) Ur Specific [place] 1.003 (1.001-1.035) Urine Protein Negative (Negative) Urine Glucose (UA) Negative (Negative) Urine Ketones Negative (Negative) Urine Blood Negative (Negative) Urine Nitrite Negative (Negative) Urine Bilirubin Negative (Negative) Urine Urobilinogen <2.0 (<2.0) mg/dL Ur Leukocyte Esterase Negative (Negative) Urine HCG, Qual Not Detected (Not Detectd) Urine Opiates Screen Not Detected (NotDetected) Ur Oxycodone Screen Not Detected (NotDetected) Urine Methadone Screen Not Detected (NotDetected) Ur Propoxyphene Screen Not Detected (NotDetected) Ur Barbiturates Screen Not Detected (NotDetected) U Tricyclic Antidepress Not Detected (NotDetected) Ur Phencyclidine Scrn Not Detected (NotDetected) Ur Amphetamines Screen Not Detected (NotDetected) U Methamphetamines Scrn Not Detected (NotDetected) U Benzodiazepines Scrn Not Detected (NotDetected) Urine Cocaine Screen Not Detected (NotDetected) U Marijuana (THC) Screen Detected H (NotDetected) 11/16/19 11/16/19 Range/Units 06:43 06:43 WBC 11.8 H (3.8-10.6) k/uL RBC 4.67 (3.80-5.40) m/uL Hgb 11.1 L (11.4-16.0) gm/dL Hct 35.3 (34.0-46.0) % MCV 75.5 L (80.0-100.0) fL MCH 23.8 L (25.0-35.0) pg MCHC 31.6 (31.0-37.0) g/dL RDW 15.7 H (11.5-15.5) % Plt Count 227 (150-450) k/uL Hypochromasia Slight Microcytosis Slight Sodium 137 (137-145) mmol/L Potassium 3.8 (3.5-5.1) mmol/L Chloride 105 (98-107) mmol/L Carbon Dioxide 24 (22-30) mmol/L Anion Gap 8 mmol/L BUN 17 (7-17) mg/dL Creatinine 0.79 (0.52-1.04) mg/dL Est GFR (CKD-EPI)AfAm >90 (>60 ml/min/1.73 sqM) Est GFR (CKD-EPI)NonAf 86 (>60 ml/min/1.73 sqM) Glucose 115 H (74-99) mg/dL Calcium 9.0 (8.4-10.2) mg/dL Total Bilirubin 0.6 (0.2-1.3) mg/dL AST 29 (14-36) U/L ALT 22 (4-34) U/L Alkaline Phosphatase 92 (38-126) U/L Total Protein 6.6 (6.3-8.2) g/dL Albumin 3.9 (3.5-5.0) g/dL Urine Color Urine Appearance (Clear) Urine pH (5.0-8.0) Ur Specific [place] (1.001-1.035) Urine Protein (Negative) Urine Glucose (UA) (Negative) Urine Ketones (Negative) Urine Blood (Negative) Urine Nitrite (Negative) Urine Bilirubin (Negative) Urine Urobilinogen (<2.0) mg/dL Ur Leukocyte Esterase (Negative) Urine HCG, Qual (Not Detectd) Urine Opiates Screen (NotDetected) Ur Oxycodone Screen (NotDetected) Urine Methadone Screen (NotDetected) Ur Propoxyphene Screen (NotDetected) Ur Barbiturates Screen (NotDetected) U Tricyclic Antidepress (NotDetected) Ur Phencyclidine Scrn (NotDetected) Ur Amphetamines Screen (NotDetected) U Methamphetamines Scrn (NotDetected) U Benzodiazepines Scrn (NotDetected) Urine Cocaine Screen (NotDetected) U Marijuana (THC) Screen (NotDetected) Disposition Clinical Impression: Manic bipolar I disorder, Acute psychosis Disposition: TRANSFER TO PSYCH HOSP/UNIT Condition: Fair Is patient prescribed a controlled substance at d/c from ED?: No Referrals: Meghana Houston DO [Primary Care Provider] - 1-2 days
[2019-11-16 01:10] LABS: Amphetamine Screen,Urine Not Detected (NotDetected); Barbiturate Screen,Urine Not Detected (NotDetected); Benzodiazepines Screen,Urine Not Detected (NotDetected); Cocaine Screen,Urine Not Detected (NotDetected); Methadone Screen, Urine Not Detected (NotDetected); Opiate Screen,Urine Not Detected (NotDetected); Oxycodone Screen, Urine Not Detected (NotDetected); Phencyclidine Screen,Urine Not Detected (NotDetected); Tricyclic Antidepressant,Urine Not Detected (NotDetected); Urn Cannabinoid Scrn Detected (NotDetected)
[2019-11-16 06:15] LABS: Appearance,Urine Clear (Clear); Bilirubin,Urine Negative (Negative); Blood,Urine Negative (Negative); Color,Urine Colorless; Glucose,Urine (UA) Negative (Negative); Ketones,Urine Negative (Negative); Leukocyte Esterase,Urine Negative (Negative); Nitrite,Urine Negative (Negative); Protein,Urine Negative (Negative); Specific Gravity,Urine 1.003 (1.001-1.035); Urobilinogen,Urine <2.0 mg/dL (<2.0)
[2019-11-16 07:03] LABS: HCT 35.3 % (34.0-46.0); HGB 11.1 gm/dL (11.4-16.0); Hypochromasia Slight; MCH 23.8 pg (25.0-35.0); MCHC 31.6 g/dL (31.0-37.0); MCV 75.5 fL (80.0-100.0); Mean Platelet Volume 9.6; Microcytosis Slight; Platelet Count 227 k/uL (150-450); RBC 4.67 m/uL (3.80-5.40); RDW 15.7 % (11.5-15.5); WBC 11.8 k/uL (3.8-10.6)
[2019-11-16 07:21] LABS: ALT 22 U/L (4-34); AST 29 U/L (14-36); African American GFR (CKD) >90 (>60 ml/min/1.73 sqM); Albumin 3.9 g/dL (3.5-5.0); Alkaline Phosphatase 92 U/L (38-126); Anion Gap 8 mmol/L; Blood Urea Nitrogen 17 mg/dL (7-17); Carbon Dioxide 24 mmol/L (22-30); Chloride 105 mmol/L (98-107); Glucose 115 mg/dL (74-99); Non-African American GFR(CKD) 86 (>60 ml/min/1.73 sqM); Potassium 3.8 mmol/L (3.5-5.1); Sodium 137 mmol/L (137-145); Total Bilirubin 0.6 mg/dL (0.2-1.3); Total Protein 6.6 g/dL (6.3-8.2)
[2019-11-16] MEDS ORDERED: LORazepam 2 MG/ML INJ IV STA (10:52)
[2019-11-16] MEDS: HALOPERIDOL LACTATE 5 MG/ML 1 ML VIAL IVP STA ×2 (13:18→14:17)
[2019-11-16] MEDS ORDERED: traZODone HCL 50 MG TAB PO ONE (22:33)
[2019-11-17] MEDS ORDERED: NICOTINE 14MG/24HR PATCH TRANSDERM STA (12:17)
[2019-11-17] MEDS: MENTHOL (NICE) LOZENGE MUCOUS MEM PRN ×3 (13:17→18:37)
[2019-11-17] MEDS ORDERED: ALPRAZolam 0.5 MG TAB PO PRN (13:24)
[2019-11-17] MEDS: LEVOTHYROXINE 75 MCG TAB PO SCH (14:04)
[2019-11-17] MEDS: lamoTRIgine 25 MG TAB PO SCH ×2 (14:04→22:11)
[2019-11-17] MEDS: LISINOPRIL-HCTZ 10-12.5 MG 1 EACH TAB PO SCH (14:04)
[2019-11-17] MEDS: PANTOPRAZOLE 40 MG TABLET PO SCH ×2 (14:09→22:11)
[2019-11-17] MEDS ORDERED: ALBUTEROL HFA INHALER INHALATION PRN (14:16)
[2019-11-17] MEDS: SYMBICORT 160-4.5 MCG INHALER INHALATION SCH (17:52)
[2019-11-17] MEDS ORDERED: GLATOPA SQ SCH (21:00)
[2019-11-17] MEDS ORDERED: traZODone HCL 50 MG TAB PO SCH (21:00)
[2019-11-17] MEDS ORDERED: traZODone HCL 100 MG TAB PO PRN (21:00)
[2019-11-17] MEDS ORDERED: SERTRALINE 50 MG TAB PO SCH (21:00)
[2019-11-17] MEDS: FLUTICASONE 50MCG/SPRAY NASAL 16GM EA NOSTRIL SCH (22:25)
[2019-11-18] MEDS: LISINOPRIL-HCTZ 10-12.5 MG 1 EACH TAB PO SCH (08:36)
[2019-11-18] MEDS: LEVOTHYROXINE 75 MCG TAB PO SCH (08:36)
[2019-11-18] MEDS: PANTOPRAZOLE 40 MG TABLET PO SCH (08:37)
[2019-11-18] MEDS: lamoTRIgine 25 MG TAB PO SCH (08:38)
[2019-11-18] MEDS: SYMBICORT 160-4.5 MCG INHALER INHALATION SCH (08:47)
[2019-11-18] MEDS ORDERED: ASPIRIN 81 MG PO SCH (09:00)
[2019-11-18] MEDS ORDERED: ATORVASTATIN 10 MG TAB PO SCH (09:00)
[2019-11-18] MEDS: FLUTICASONE 50MCG/SPRAY NASAL 16GM EA NOSTRIL SCH (10:20)
--- NOTE | 2019-11-18 14:35 | P.CON ---
Consult Note - . Consult date: 11/18/19 Assessment/Plan:: Clinical Problems: Bipolar disorder most recent episode hypomanic, rule out hypomania secondary to multiple sclerosis, marijuana use disorder Interim history: I reviewed the medical record and interviewed the patient. She is a 54-year-old female who has a history of bipolar disorder. The EMS brought her to the ED on 11/15/2019 and her mother completed a Petition describing decreased need to sleep, pressured speech, restlessness and irritability. When the EPS nurse evaluate her she was described as "very manic" and had "difficulty focusing". She required constant redirection when answering questions. She expressed grandiose beliefs that she is the "best realtor", "best organizer" and had "such a high IQ I am so intelligent." The nurse notes that she was "hyper focused" on dynamics within the immediate household. Our the initial recommendation was admission to the psychiatric unit. Our unit was full and other community programs would not accept her because she has obstructive sleep apnea requires CPAP. Due to the difficulties we've experiencing with transfer her to another psychiatric facility, her mother approached the EPS nurse and requested to "withdrawal the petition." She stated that she would like her daughter to return home and follow up with her outpatient psychiatrist. The patient attributed her presenting complaints and those of her mother's to her MS. She talked about her MS interfering with her concentration and attention. She offered and an alternative explanation for each of the complaints that her mother listed on the Petition. She expressed concern about her son 26-year-old son who has history of substance use problems, suicidality and psychiatric hospitalizations. She also complained of ongoing conflict with her . She denied having thoughts of or suicide. She denied homicidal ideation. She denied feeling depressed, hopeless or helpless. She denied experiencing such psychotic symptoms as auditory, visual or olfactory hallucinations, ideas reference, thought insertion, thought processing or thought control. She meets with a psychiatrist, Dr. Atkinson, at [facility] in [facility]. [facility] "3 weeks ago". Her current medications include Lamictal 25 mg twice a day and Zoloft 50 mg at bedtime. She is also prescribed Xanax 0.25-0.5 mg daily when necessary. She has had 2 admissions to our psychiatric unit; the last was in November 2018. She was discharged with a diagnosis of bipolar disorder type I. Her discharge medications included Abilify 10 mg daily and Zoloft 50 mg at bedtime. She denied a history of suicide attempts or gestures. Mental status exam: She presented as a casually groomed 54-year-old female who was pleasant on approach. She made eye contact and attended to the interview. She had no distinguishing features or prominent physical abnormalities. She had a bright facial expression. She is alert and oriented to person, place and time. She was not restless or agitated. Her speech was pressured with normal volume and rhythm. Affect was elevated but not inappropriate or intents. She denied suicidal ideation and wishes. She denied homicidal ideation. She denied depressive cognitions such as hopelessness, helplessness or worthlessness. She did not express ideas reference, paranoid ideation or delusions. Her thinking was concrete, over elaborative and ruminative. She did not express clang associations or neologisms. She denied hallucinations did not appear to be responding to internal stimuli. Assessment: She has signs and symptoms of hypomania but does not require admission to the psychiatric unit at this time. Her symptoms could be managed as an outpatient. Plan: Completed negative clinical certificate. EPS nurse to arrange an appointment with her psychiatrist in 1-2 weeks. Continue with current psychotropic medications until she meets with her outpatient psychiatrist.
[2019-11-18 15:12] VITALS: BP 126/85; PULSE 81; RESP 16; TEMP 98
== END 2019-11-18 15:19 ==
LOC: EC 00:13
DX: F23 Brief psychotic disorder (principal); F30.9 Manic episode, unspecified; J45.909 Unspecified asthma, uncomplicated; I10 Essential (primary) hypertension; F41.0 Panic disorder [episodic paroxysmal anxiety]; F10.129 Alcohol abuse with intoxication, unspecified; Y90.9 Presence of alcohol in blood, level not specified; Z79.51 Long term (current) use of inhaled steroids; Z79.890 Hormone replacement therapy; Z79.899 Other long term (current) drug therapy; Z79.82 Long term (current) use of aspirin; Z88.0 Allergy status to penicillin
CPT/HCPCS: 82075; 36415; 94640; 80053; 85027; 81003; 81025; 80306; 96374; 96375; 99285; S4990; J2060; J1630

== ENCOUNTER 2020-01-14 10:21 | Inpatient (IN) | payer OTHER ==
[2020-01-14 10:56] LABS: Basophils # (A) 0.1 k/uL (0-0.2); Basophils % (A) 1 %; Eosinophils # (A) 0.4 k/uL (0-0.7); Eosinophils % (A) 3 %; HCT 37.3 % (34.0-46.0); HGB 11.1 gm/dL (11.4-16.0); Hypochromasia Marked; Lymphocytes # (A) 1.8 k/uL (1.0-4.8); Lymphocytes % (A) 15 %; MCH 21.8 pg (25.0-35.0); MCHC 29.8 g/dL (31.0-37.0); MCV 73.3 fL (80.0-100.0); Mean Platelet Volume 9.6; Microcytosis Slight; Monocytes # (A) 0.7 k/uL (0-1.0); Monocytes % (A) 6 %; Neutrophils # (A) 8.6 k/uL (1.3-7.7); Neutrophils % (A) 72 %; Platelet Count 274 k/uL (150-450); RBC 5.08 m/uL (3.80-5.40); RDW 15.4 % (11.5-15.5); WBC 11.8 k/uL (3.8-10.6)
[2020-01-14] MEDS ORDERED: LORazepam 2 MG/ML INJ IM STA (10:57)
[2020-01-14] MEDS ORDERED: ZIPRASIDONE 20 MG VIAL IM STA (10:57)
[2020-01-14 11:04] LABS: ALT 16 U/L (4-34); AST 23 U/L (14-36); African American GFR (CKD) 57 (>60 ml/min/1.73 sqM); Albumin 4.3 g/dL (3.5-5.0); Alcohol <10 mg/dL; Alkaline Phosphatase 110 U/L (38-126); Anion Gap 11 mmol/L; Blood Urea Nitrogen 13 mg/dL (7-17); Calcium 9.1 mg/dL (8.4-10.2); Carbon Dioxide 20 mmol/L (22-30); Chloride 106 mmol/L (98-107); Glucose 189 mg/dL (74-99); Non-African American GFR(CKD) 49 (>60 ml/min/1.73 sqM); Potassium 3.9 mmol/L (3.5-5.1); Sodium 137 mmol/L (137-145); Total Bilirubin 0.5 mg/dL (0.2-1.3)
--- NOTE | 2020-01-14 11:11 | ED ---
Psych HPI - General Source: EMS, RN notes reviewed, old records reviewed Mode of arrival: EMS <Kyara Chang - Last Filed: 01/14/20 14:24> <Hero Graham - Last Filed: 01/14/20 14:44> - General Chief Complaint: Psychiatric Symptoms Stated Complaint: Mental Health Time Seen by Provider: 01/14/20 10:23 - History of Present Illness Initial Comments: Patient is a 34-year-old female presents emergency department today for evaluation for manic behavior. Patient reportedly was found in her yard running around naked angry and combative toward family members. Was contacted by EMS. EMS was able to see the Patient sedated with ketamine. Patient reports emergency department she was sedated but cooperative. Patient has had extensive mental health history.Patient is having a petition filled out by her daughter. (Kyara Chang) - Related Data Home Medications Medication Instructions Recorded Confirmed Albuterol Sulfate [Ventolin HFA] 2 puff INHALATION RT-BID PRN 09/26/15 11/17/19 Mometasone/Formoterol [Dulera 200 2 puff INHALATION RT-BID 09/26/15 11/17/19 Mcg-5 Mcg Inhaler] traZODone HCL [Desyrel] 50 mg PO HS@2330 PRN 09/26/15 11/17/19 Fluticasone Nasal [place] [Flonase 2 spr EA NOSTRIL BID 01/24/17 11/17/19 Nasal [place]] Lansoprazole [Prevacid] 30 mg PO BID 01/24/17 11/17/19 Lisinopril-Hctz 10-12.5 mg 1 tab PO DAILY 12/21/17 11/17/19 [Zestoretic 10-12.5] Aspirin EC [Ecotrin Low Dose] 81 mg PO DAILY 12/12/18 11/17/19 Atorvastatin [Lipitor] 10 mg PO DAILY 12/12/18 11/17/19 Cholecalciferol [Vitamin D3 (25 1,000 unit PO HS 12/12/18 11/17/19 Mcg = 1000 Iu)] Levothyroxine Sodium [Synthroid] 150 mcg PO DAILY 12/12/18 11/17/19 Loratadine [Claritin] 10 mg PO DAILY 12/12/18 11/17/19 Magnesium 200 mg PO DAILY 12/12/18 11/17/19 ALPRAZolam [Xanax] 0.25 - 0.5 mg PO DAILY PRN 11/17/19 11/17/19 Ascorbic Acid [Vitamin C] 500 mg PO DAILY 11/17/19 11/17/19 Ascorbic Acid/Multivit-Min 1,000 mg PO DAILY 11/17/19 11/17/19 [Emergen-C 1,000 mg Packet] Loratadine-Pseudoeph 10-240 mg 1 tab PO DAILY 11/17/19 11/17/19 [Claritin-D 24 Hour] Potassium Gluconate 99 mg PO DAILY 11/17/19 11/17/19 lamoTRIgine [LaMICtal] 25 mg PO BID 11/17/19 11/17/19 predniSONE See Taper PO DAILY 11/17/19 11/17/19 traZODone HCL [Desyrel] 100 mg PO HS@2330 PRN 11/17/19 11/17/19 Previous Rx's Medication Instructions Recorded Glatiramer Acetate 40 mg SQ Q48H 12/17/18 Sertraline [Zoloft] 50 mg PO HS tab 12/17/18 Allergies Allergy/AdvReac Type Severity Reaction Status Date / Time amoxicillin Allergy Rash/Hives Verified 11/17/19 12:40 Review of Systems ROS Other: All systems not noted in ROS Statement are negative. <Kyara Chang - Last Filed: 01/14/20 14:24> ROS Other: All systems not noted in ROS Statement are negative. <Hero Graham - Last Filed: 01/14/20 14:44> ROS Statement: Those systems with pertinent positive or pertinent negative responses have been documented in the HPI. Past Medical History Past Medical History: Asthma, Hypertension Additional Past Medical History / Comment(s): MS History of Any Multi-Drug Resistant Organisms: None Reported Past Surgical History: Cholecystectomy, Hernia Repair, Orthopedic Surgery Additional Past Surgical History / Comment(s): wrist surgery, polyps removed, right knee left knee Past Anesthesia/Blood Transfusion Reactions: No Reported Reaction Additional Past Anesthesia/Blood Transfusion Reaction / Comment(s): MOTHER TOOK LONG TIME TO AWAKEN "HAD TOO MUCH." Past Psychological History: Anxiety, Depression, Panic Disorder Past Alcohol Use History: Daily, Occasional Past Drug Use History: Marijuana - Past Family History Father Family Medical History: Cancer Sister(s) Family Medical History: Cancer Mother Family Medical History: Cancer Additional Family Medical History / Comment(s): skin <Rowena Changily - Last Filed: 01/14/20 14:24> General Exam Limitations: no limitations General appearance: alert, in no apparent distress Head exam: Present: atraumatic, normocephalic, normal inspection Eye exam: Present: normal appearance, PERRL, EOMI. Absent: scleral icterus, conjunctival injection, periorbital swelling ENT exam: Present: normal exam, normal oropharynx, mucous membranes moist Neck exam: Present: normal inspection. Absent: tenderness, meningismus, lymphadenopathy Respiratory exam: Present: normal lung sounds bilaterally. Absent: respiratory distress, wheezes, rales, rhonchi, stridor Cardiovascular Exam: Present: regular rate, normal rhythm, normal heart sounds. Absent: systolic murmur, diastolic murmur, rubs, gallop, clicks Extremities exam: Present: normal inspection, full ROM, normal capillary refill. Absent: tenderness, pedal edema, joint swelling, calf tenderness Back exam: Present: normal inspection Neurological exam: Present: alert, oriented X3, CN II-XII intact Psychiatric exam: Present: agitated. Absent: normal affect, normal mood Skin exam: Present: warm, dry, intact, normal color. Absent: rash <Rowena Changily - Last Filed: 01/14/20 14:24> - General Exam Comments Initial Comments: 54-year-old female. Somewhat sedated. (Kyara Chang) Course <Hero Graham - Last Filed: 01/14/20 14:44> Vital Signs 01/14/20 01/14/20 10:24 10:34 Temperature 98.9 F Pulse Rate 95 Respiratory 18 Rate Blood Pressure 132/98 140/92 O2 Sat by Pulse 100 Oximetry - Reevaluation(s) Reevaluation #1: 01/14/20 14:43 Patient is: I presented evaluate this patient which was brought in. Patient does demonstrate evidence of manic behavior and likely acute psychosis he did during her stay in the emergency department take her clothes off and try to escape the emergency department. She did require sedation and restraints. I did fill out a clinical certain. I did review the petition. (Hero Graham) Procedures - Restraint - Face to Face Restraint Occurrence 1 Patient's Immediate Situation: Endangers self safety, Endangers others' safety Patient's Reaction to the Intervention: Appropriate, Suspicious, Aggressive, Combative, Restless Patient's Medical & Behavioral Condition: Awake, Alert, Drowsy Need to Continue or Terminate Restraint or Seclusion: Continue Face to Face Eval of Restraint Date: 01/14/20 Face to Face Eval of Restraint Time: 11:11 <Kyara Chang - Last Filed: 01/14/20 14:24> - Restraint - Face to Face Restraint Occurrence 1 Patient's Immediate Situation - Comment: Patient was filling around the room and limbs caught between the bed rails and a danger to herself by hitting her head on the back of the bed. Patient was give n IM Geodon and Ativan at this time and was placed in 4. restraints. (Kyara Chang) Medical Decision Making - Lab Data Result diagrams: 01/14/20 10:42 01/14/20 10:42 <Kyara Chang - Last Filed: 01/14/20 14:24> - Lab Data Result diagrams: 01/14/20 10:42 01/14/20 10:42 <Hero Graham - Last Filed: 01/14/20 14:44> - Medical Decision Making 54-year-old female presents emergency room today her EPS evaluation. She was found naked running around her lawn by family members. She is quite agitated and uncooperative per EMS. She was sedated with IV ketamine. The Patient initially when she was cooperative. However shortly after she became agitated, flailing around the bed. She was received IM Geodon and Ativan to calm her down was placed in 4 point restraints. Patient at this time is still sedated, but EPS saw patient become combative and certification was filled by DR. Graham. Patient will be admitted at this time. (Kyara Chang) - Lab Data Lab Results 01/14/20 01/14/20 Range/Units 10:42 10:42 WBC 11.8 H (3.8-10.6) k/uL RBC 5.08 (3.80-5.40) m/uL Hgb 11.1 L (11.4-16.0) gm/dL Hct 37.3 (34.0-46.0) % MCV 73.3 L (80.0-100.0) fL MCH 21.8 L (25.0-35.0) pg MCHC 29.8 L (31.0-37.0) g/dL RDW 15.4 (11.5-15.5) % Plt Count 274 (150-450) k/uL Neutrophils % 72 % Lymphocytes % 15 % Monocytes % 6 % Eosinophils % 3 % Basophils % 1 % Neutrophils # 8.6 H (1.3-7.7) k/uL Lymphocytes # 1.8 (1.0-4.8) k/uL Monocytes # 0.7 (0-1.0) k/uL Eosinophils # 0.4 (0-0.7) k/uL Basophils # 0.1 (0-0.2) k/uL Hypochromasia Marked Microcytosis Slight Sodium 137 (137-145) mmol/L Potassium 3.9 (3.5-5.1) mmol/L Chloride 106 (98-107) mmol/L Carbon Dioxide 20 L (22-30) mmol/L Anion Gap 11 mmol/L BUN 13 (7-17) mg/dL Creatinine 1.24 H (0.52-1.04) mg/dL Est GFR (CKD-EPI)AfAm 57 (>60 ml/min/1.73 sqM) Est GFR (CKD-EPI)NonAf 49 (>60 ml/min/1.73 sqM) Glucose 189 H (74-99) mg/dL Calcium 9.1 (8.4-10.2) mg/dL Total Bilirubin 0.5 (0.2-1.3) mg/dL AST 23 (14-36) U/L ALT 16 (4-34) U/L Alkaline Phosphatase 110 (38-126) U/L Total Protein 7.0 (6.3-8.2) g/dL Albumin 4.3 (3.5-5.0) g/dL Serum Alcohol <10 mg/dL Disposition Is patient prescribed a controlled substance at d/c from ED?: No Time of Disposition: 14:28 <Kyara Chang - Last Filed: 01/14/20 14:24> <Hero Graham - Last Filed: 01/14/20 14:44> Clinical Impression: Manic behavior, Bipolar disorder, Psychosis Disposition: ADMITTED IP TO THIS HOSP Condition: Stable
[2020-01-14] MEDS ORDERED: LORazepam 1 MG TAB PO PRN (14:56)
[2020-01-14] MEDS ORDERED: MAGNESIUM HYDROXIDE 2,400 MG/10 ML CUP PO PRN (14:56)
[2020-01-14] MEDS ORDERED: ZIPRASIDONE 20 MG VIAL IM PRN (14:56)
[2020-01-14] MEDS ORDERED: ACETAMINOPHEN TAB 325 MG TAB PO PRN (14:56)
[2020-01-14] MEDS ORDERED: MAG HYDROX/AL HYDROX/SIMETH 30 ML CUP PO PRN (14:56)
[2020-01-14] MEDS ORDERED: LORazepam 2 MG/ML INJ IM PRN (15:01)
[2020-01-15] MEDS: ATORVASTATIN 10 MG TAB PO SCH (08:54)
[2020-01-15] MEDS: ASPIRIN 81 MG PO SCH (08:54)
[2020-01-15] MEDS: LEVOTHYROXINE 75 MCG TAB PO SCH (08:55)
[2020-01-15] MEDS: PANTOPRAZOLE 40 MG TABLET PO SCH ×2 (08:56→17:30)
[2020-01-15] MEDS ORDERED: NON FORMULARY DRUG (Glatiramer Acetate [Copaxone] 40 MG) SQ SCH (09:00)
[2020-01-15] MEDS ORDERED: lamoTRIgine 25 MG TAB PO SCH (09:00)
[2020-01-15] MEDS: ALBUTEROL HFA INHALER INHALATION PRN (09:17)
[2020-01-15 09:29] LABS: Basophils # (A) 0.1 k/uL (0-0.2); Basophils % (A) 1 %; Eosinophils # (A) 0.6 k/uL (0-0.7); Eosinophils % (A) 6 %; HCT 36.7 % (34.0-46.0); HGB 10.9 gm/dL (11.4-16.0); Hypochromasia Marked; Lymphocytes # (A) 2.5 k/uL (1.0-4.8); Lymphocytes % (A) 25 %; MCH 22.1 pg (25.0-35.0); MCHC 29.8 g/dL (31.0-37.0); MCV 74.3 fL (80.0-100.0); Mean Platelet Volume 9.8; Microcytosis Slight; Monocytes # (A) 0.7 k/uL (0-1.0); Monocytes % (A) 7 %; Neutrophils # (A) 5.8 k/uL (1.3-7.7); Neutrophils % (A) 58 %; Platelet Count 299 k/uL (150-450); RBC 4.93 m/uL (3.80-5.40); RDW 15.5 % (11.5-15.5); WBC 10.1 k/uL (3.8-10.6)
[2020-01-15 09:59] LABS: Albumin 4.3 g/dL (3.5-5.0); Calcium 9.3 mg/dL (8.4-10.2); Potassium 4.4 mmol/L (3.5-5.1); Total Bilirubin 0.5 mg/dL (0.2-1.3); Total Protein 6.8 g/dL (6.3-8.2)
[2020-01-15] MEDS ORDERED: NICOTINE POLACRILEX 2 MG GUM BUCCAL PRN (12:35)
--- NOTE | 2020-01-15 12:35 | P.HP ---
Psychiatric H&P - . H&P Date: 01/15/20 History & Physical: Allergies Allergy/AdvReac Type Severity Reaction Status Date / Time amoxicillin Allergy Rash/Hives Verified 01/14/20 18:13 Vital Signs Temp 98.9 F 01/14/20 10:24 Pulse 95 01/14/20 10:24 Resp 18 01/14/20 10:24 BP 140/92 01/14/20 10:34 Pulse Ox 100 01/14/20 10:24 Intake & Output 01/14/20 01/15/20 01/15/20 18:59 06:59 18:59 Weight 95.254 kg Laboratory Last Values WBC 10.1 k/uL (3.8-10.6) 01/15/20 08:39 RBC 4.93 m/uL (3.80-5.40) 01/15/20 08:39 Hgb 10.9 gm/dL (11.4-16.0) L 01/15/20 08:39 Hct 36.7 % (34.0-46.0) 01/15/20 08:39 MCV 74.3 fL (80.0-100.0) L 01/15/20 08:39 MCH 22.1 pg (25.0-35.0) L 01/15/20 08:39 MCHC 29.8 g/dL (31.0-37.0) L 01/15/20 08:39 RDW 15.5 % (11.5-15.5) 01/15/20 08:39 Plt Count 299 k/uL (150-450) 01/15/20 08:39 Neutrophils % 58 % 01/15/20 08:39 Lymphocytes % 25 % 01/15/20 08:39 Monocytes % 7 % 01/15/20 08:39 Eosinophils % 6 % 01/15/20 08:39 Basophils % 1 % 01/15/20 08:39 Neutrophils # 5.8 k/uL (1.3-7.7) 01/15/20 08:39 Lymphocytes # 2.5 k/uL (1.0-4.8) 01/15/20 08:39 Monocytes # 0.7 k/uL (0-1.0) 01/15/20 08:39 Eosinophils # 0.6 k/uL (0-0.7) 01/15/20 08:39 Basophils # 0.1 k/uL (0-0.2) 01/15/20 08:39 Hypochromasia Marked 01/15/20 08:39 Microcytosis Slight 01/15/20 08:39 Sodium 138 mmol/L (137-145) 01/15/20 08:39 Potassium 4.4 mmol/L (3.5-5.1) 01/15/20 08:39 Chloride 107 mmol/L (98-107) 01/15/20 08:39 Carbon Dioxide 23 mmol/L (22-30) 01/15/20 08:39 Anion Gap 8 mmol/L 01/15/20 08:39 BUN 21 mg/dL (7-17) H 01/15/20 08:39 Creatinine 1.23 mg/dL (0.52-1.04) H 01/15/20 08:39 Est GFR (CKD-EPI)AfAm 57 (>60 ml/min/1.73 sqM) 01/15/20 08:39 Est GFR (CKD-EPI)NonAf 50 (>60 ml/min/1.73 sqM) 01/15/20 08:39 Glucose 140 mg/dL (74-99) H 01/15/20 08:39 Calcium 9.3 mg/dL (8.4-10.2) 01/15/20 08:39 Total Bilirubin 0.5 mg/dL (0.2-1.3) 01/15/20 08:39 AST 38 U/L (14-36) H 01/15/20 08:39 ALT 20 U/L (4-34) 01/15/20 08:39 Alkaline Phosphatase 103 U/L (38-126) 01/15/20 08:39 Total Protein 6.8 g/dL (6.3-8.2) 01/15/20 08:39 Albumin 4.3 g/dL (3.5-5.0) 01/15/20 08:39 Triglycerides 137 mg/dL (<150) 01/15/20 08:39 Cholesterol 138 mg/dL (<200) 01/15/20 08:39 LDL Cholesterol, Calc 56 mg/dL (0-99) 01/15/20 08:39 HDL Cholesterol 55 mg/dL (40-60) 01/15/20 08:39 TSH 5.160 mIU/L (0.465-4.680) H 01/15/20 08:39 Serum Alcohol <10 mg/dL 01/14/20 10:42 01/15/20 12:26 IDENTIFYING DATA: Patient is a 55-year-old female with a history of MS and bipolar disorder who currently lives in a house is with 2 kids and collects Social Security disability. HPI: Patient presented to the hospital yesterday with manic behavior at home. Patient apparently was found in the yard "running around naked" according to ER report. Patient also was reported to be angry and combative towards family members at home and need to be sedated with ketamine by EMS. Patient also was noted to try to take off her clothes and escape in the ER. Patient was seen today by insurance underwriter for evaluation and appeared to be tangential, illogical at times and argumentative with insurance underwriter. Patient was minimizing her symptoms and had poor judgment. She claims that she lives in a "dramatic household" and spoke negatively about her being immature and doesn't know how to "discuss our problems". She spoke about her 2 children who have recently moved back into her house and were not doing well socially and in the wrong lives. She spoke about her son being "clingy and anxious and having difficulty with his friends and smoking pot. She also spoke about her daughter moving away to college and "screwed up her life" and has now resumed moved back to the house with them. She spoke negatively about her marriage with her and states that "I don't want to live with him anymore" and also states that "I hit my bottom with him". She states that she is having financial difficulties and believes that her thinks that she is cheating on him. She apparently has told him that she wants to file for separation and move out of the house. She claims that her mood is "sad" and states that her sleep is "okay". She claims that she has been owing up with her outpatient psychiatrist regularly and has been taking her medications. Patient denies any suicidal or homicidal ideations intent or plan. At this time patient denies any auditory or visual hallucinations. Patient admits to flight of ideas and racing thoughts. Patient admits to using alcohol daily drinking "twisted teas" 1-2 drinks per day and also smokes cigarettes daily. She states that she smokes marijuana daily. PAST PSYCHIATRIC HISTORY: Patient states that she has a history of bipolar disorder. Patient claims that she is on trazodone, Zoloft and Lamictal. Patient's last hospitalization was 1 year ago in November 2018. Patient claims that she follows up with Dr. Atkinson her psychiatrist at [facility] in [place]. Patient denies any history of suicide attempts in the past. PMH: Asthma, hypertension and multiple sclerosis. ALLERGIES: as per EMR CHEMICAL DEPENDENCY HISTORY: as per HPI FAMILY PSYCHIATRIC/SUBSTANCE USE HISTORY: States that her son has depression and anxiety and alcohol use. SOCIAL HISTORY: Patient was born and raised in [place] and states that she now lives in [place]. She claims that she lives in a house with her and 2 kids and collects Social Security disability. She states that she has some college and denies any legal history. MENTAL STATUS EXAM: General Appearance: Patient appears to be stated age is alert, difficult to redirect, argumentative, intrusive at times. Patient appears to have fair hygiene and grooming. Behavior: Patient is seated without any agitated behavior. Intrusive and argumentative. Speech: Patient's speech is hyperverbal. Mood/Affect: Patient reports their mood is "sad", affect is congruent and labile. Suicidality/Homicidality: Patient denies having any homicidal ideation intent or plan. Denies any suicidal ideations intent or plan Perceptions: Patient denies any visual hallucinations and denies any auditory hallucinations Though content/process: She is preoccupied with his stressors and her medications, illogical at times tangential/circumstantial. Memory and concentration: AOX3, grossly intact for the purposes of this session. Can spell "WORLD" backwards Judgment and insight: poor STRENGTHS/WEAKNESSES: strength is that patient is resilient. Weakness is that patient has poor judgment and is impulsive INTELLECT: average IMPRESSIONS: Bipolar disorder, currently manic episode Alcohol use disorder Cannabis use disorder Nicotine dependence PLAN: -Patient is admitted under involuntary status to [facility] for stabilization of psychiatric symptoms and safety. Patient signed medication consent form. A second certification was completed and along with petition will be filed for court. -Medications : Will start patient on Lamictal however increased to a dose of 25 mg 3 times a day for mood stabilization/depression, continue with Zoloft 50 mg daily at bedtime for anxiety/mood. We will start Risperdal 1 mg daily at bedtime for mood stabilization/insomnia. -Ativan and Haldol PRN for agitation/aggression -Patient was counselled on substance abuse and desired to cut back on use -Patient was informed of the risks, benefits and side effects of the medication and patient verbally consented to taking the medications. Patient signed med consent form and was placed in chart. -Internal Medicine consult to perform medical evaluation and physical. -NRT - nicotine gum -SW on board for discharge planning. Encourage patient to participate in groups to work on coping skills. 01/15/20 12:35
[2020-01-15] MEDS ORDERED: SODIUM CHLORIDE 0.9% 1,000 ML IV ONE (13:05)
--- NOTE | 2020-01-15 13:09 | P.CONS ---
History of Present Illness - Reason for Consult medical clearance - History of Present Illness 53-year-old female was admitted for bipolar disorder and manic episodes.patient does have history of asthma multiple sclerosis and hypertension. Patienthas elevated creatinine of 1.23 from possible renal failure, because of which I'm holding off on her blood pressure medications that his CLAUDIO inhibitor and diure tic combination. Patient denied any fever chills nausea vomiting abdominal pain dysuria. Patient also has elevated TSH will obtain a T4 level. Patient takes 150 mg of levothyroxine unsure whether patient is complaining because of which I'm not increasing this will obtain a T4 levels probably need to recheck the TSH again about 2-4 weeks. Review of Systems REVIEW OF SYSTEMS: CONSTITUTIONAL: No fever, no malaise, no fatigue. HEENT: No recent visual problems or hearing problems. Denied any sore throat. CARDIOVASCULAR: No chest pain, orthopnea, PND, no palpitations, no syncope. PULMONARY: No shortness of breath, no cough, no hemoptysis. GASTROINTESTINAL: No diarrhea, no nausea, no vomiting, no abdominal pain. NEUROLOGICAL: No headaches, no weakness, no numbness. HEMATOLOGICAL: Denies any bleeding or petechiae. GENITOURINARY: Denies any burning micturition, frequency, or urgency. MUSCULOSKELETAL/RHEUMATOLOGICAL: Denies any joint pain, swelling, or any muscle pain. ENDOCRINE: Denies any polyuria or polydipsia. The rest of the 14-point review of systems is negative. Past Medical History Past Medical History: Asthma, Hypertension Additional Past Medical History / Comment(s): MS History of Any Multi-Drug Resistant Organisms: None Reported Past Surgical History: Cholecystectomy, Hernia Repair, Orthopedic Surgery Additional Past Surgical History / Comment(s): wrist surgery, polyps removed, right knee left knee Past Anesthesia/Blood Transfusion Reactions: No Reported Reaction Additional Past Anesthesia/Blood Transfusion Reaction / Comm: MOTHER TOOK LONG TIME TO AWAKEN "HAD TOO MUCH." Past Psychological History: Anxiety, Depression, Panic Disorder Past Alcohol Use History: Daily, Occasional Past Drug Use History: Marijuana - Past Family History Father Family Medical History: Cancer Sister(s) Family Medical History: Cancer Mother Family Medical History: Cancer Additional Family Medical History / Comment(s): skin Medications and Allergies Home Medications Medication Instructions Recorded Confirmed Type Albuterol Sulfate [Ventolin HFA] 2 puff INHALATION RT-Q4H PRN 09/26/15 01/14/20 History Mometasone/Formoterol [Dulera 200 2 puff INHALATION RT-BID 09/26/15 01/14/20 History Mcg-5 Mcg Inhaler] traZODone HCL [Desyrel] 50 mg PO HS PRN 09/26/15 01/14/20 History Fluticasone Nasal [place] [Flonase 2 spr EA NOSTRIL BID 01/24/17 01/14/20 History Nasal [place]] Lansoprazole [Prevacid] 30 mg PO BID 01/24/17 01/14/20 History Lisinopril-Hctz 10-12.5 mg 1 tab PO DAILY 12/21/17 01/14/20 History [Zestoretic 10-12.5] Aspirin EC [Ecotrin Low Dose] 81 mg PO DAILY 12/12/18 01/14/20 History Atorvastatin [Lipitor] 10 mg PO DAILY 12/12/18 01/14/20 History Cholecalciferol [Vitamin D3 (25 1,000 unit PO HS 12/12/18 01/14/20 History Mcg = 1000 Iu)] Levothyroxine Sodium [Synthroid] 150 mcg PO DAILY 12/12/18 01/14/20 History Loratadine [Claritin] 10 mg PO DAILY 12/12/18 01/14/20 History Magnesium 200 mg PO DAILY 12/12/18 01/14/20 History Sertraline [Zoloft] 50 mg PO HS tab 12/17/18 01/14/20 Rx Ascorbic Acid [Vitamin C] 500 mg PO DAILY 11/17/19 01/14/20 History Potassium Gluconate 99 mg PO DAILY 11/17/19 01/14/20 History lamoTRIgine [LaMICtal] 25 mg PO BID 11/17/19 01/14/20 History traZODone HCL [Desyrel] 100 mg PO HS PRN 11/17/19 01/14/20 History Glatiramer Acetate [Copaxone] 40 mg SQ DIRECTED 01/14/20 01/14/20 History Ipratropium [place] 0.06%Nasal 2 spray EA NOSTRIL QID PRN 01/14/20 01/14/20 History [Atrovent Nasal 0.06%] Montelukast Sodium [Singulair] 10 mg PO HS 01/14/20 01/14/20 History Allergies Allergy/AdvReac Type Severity Reaction Status Date / Time amoxicillin Allergy Rash/Hives Verified 01/14/20 18:13 Physical Exam PHYSICAL EXAMINATION: GENERAL: The patient is alert and oriented x3, not in any acute distress. Well developed, well nourished. HEENT: Pupils are round and equally reacting to light. EOMI. No scleral icterus. No conjunctival pallor. Normocephalic, atraumatic. No pharyngeal erythema. No thyromegaly. CARDIOVASCULAR: S1 and S2 present. No murmurs, rubs, or gallops. PULMONARY: Chest is clear to auscultation, no wheezing or crackles. ABDOMEN: Soft, nontender, nondistended, normoactive bowel sounds. No palpable organomegaly. MUSCULOSKELETAL: No joint swelling or deformity. EXTREMITIES: No cyanosis, clubbing, or pedal edema. NEUROLOGICAL: Gross neurological examination did not reveal any focal deficits. SKIN: No rashes. Results CBC & Chem 7: 01/15/20 08:39 01/15/20 08:39 Labs: Abnormal Lab Results - Last 24 Hours (Table) 01/15/20 01/15/20 Range/Units 08:39 08:39 Hgb 10.9 L (11.4-16.0) gm/dL MCV 74.3 L (80.0-100.0) fL MCH 22.1 L (25.0-35.0) pg MCHC 29.8 L (31.0-37.0) g/dL BUN 21 H (7-17) mg/dL Creatinine 1.23 H (0.52-1.04) mg/dL Glucose 140 H (74-99) mg/dL AST 38 H (14-36) U/L TSH 5.160 H (0.465-4.680) mIU/L Assessment and Plan Plan: -acute renal failure: Probably related to intravascular was fully depletion and poor pO intake because of her psychiatricissues, patient will be bolused with normal saline about a liter and will recheck the basic metabolic profile tomorrow. Hold off on CLAUDIO inhibitor and diuretic for now -Hypertension: Management as mentioned above holding of diuretic as well as CLAUDIO inhibitor because of acute renal failure -Hypothyroidism with elevated TSH unsure whether patient is compliant with his medications because of that reason I'm not increasing levothyroxine will need to repeat TSH in about 2-4 weeks loss of 24 level -multiple sclerosis without any exacerbation flareup and patient will be continued on Glatiramer. -gases visual reflux disease -Bipolar disorder: Management as per primary service -Hyperlipidemia continue with the Lipitor -COPD without any acute exacerbation Continued nicotine use: Counseling was provided
[2020-01-15] MEDS: NICOTINE 7MG/24HR PATCH TRANSDERM SCH (13:28)
[2020-01-15] MEDS: BENZOCAINE/MENTHOL LOZENG 1 EACH LOZENGE MUCOUS MEM PRN ×2 (13:28→17:10)
[2020-01-15] MEDS: GLATIRAMER ACETATE 40 MG SQ SCH (14:08)
[2020-01-15] MEDS: lamoTRIgine 25 MG TAB PO SCH ×2 (16:57→22:06)
[2020-01-15 18:33] LABS: Hemoglobin A1C 6.4 % (4.0-6.0)
[2020-01-15] MEDS ORDERED: risperiDONE 1 MG TAB PO SCH (21:00)
[2020-01-15] MEDS: SERTRALINE 50 MG TAB PO SCH (22:06)
[2020-01-15] MEDS: MELATONIN 5 MG TABLET PO SCH (22:06)
[2020-01-15] MEDS: risperiDONE 0.5 MG TAB PO SCH (22:21)
[2020-01-16] MEDS: LEVOTHYROXINE 75 MCG TAB PO SCH (08:44)
[2020-01-16] MEDS: PANTOPRAZOLE 40 MG TABLET PO SCH ×2 (08:44→17:49)
[2020-01-16] MEDS: ASPIRIN 81 MG PO SCH (08:44)
[2020-01-16] MEDS: NICOTINE 7MG/24HR PATCH TRANSDERM SCH (08:44)
[2020-01-16] MEDS: lamoTRIgine 25 MG TAB PO SCH ×2 (08:44→22:05)
[2020-01-16] MEDS: ATORVASTATIN 10 MG TAB PO SCH (08:44)
[2020-01-16] MEDS: ALBUTEROL HFA INHALER INHALATION PRN (08:47)
[2020-01-16 09:33] LABS: Calcium 8.8 mg/dL (8.4-10.2); Magnesium 1.8 mg/dL (1.6-2.3)
[2020-01-16] MEDS: LORATADINE 10 MG TAB PO SCH (11:09)
[2020-01-16] MEDS ORDERED: HALOPERIDOL LACTATE 5 MG/ML 1 ML VIAL IM PRN (11:25)
--- NOTE | 2020-01-16 11:31 | P.PN ---
Progress Note - Text Progress Note Date: 01/16/20 Interval History: Patient was seen wandering the hallways and was directable and agreeable to sp eak with public relations writer in the office. Patient appeared to be less irritable today and more directable with conversation. Patient continues to perseverate on her relationship with her and hopefully will be filing for divorce. She states that she feels he needs to move out of the house and allow her to live there. She also continues to minimize her being in the hospital and her symptoms. She states that she does not remember much of what occurred prior to her coming into the hospital. She believes that her needs to be in the hospital and set up her. She states that today she is feeling better however claims that "I'm in a bad situation" referring to her relationship at home and with her kids. She claims that she has been trying to go to groups and participate as best she can. She states that she was able to sleep better last night. At this time patient denies any suicidal or homical ideations, intent or plan. Patient denies any auditory, visual hallucinations and denies any paranoia or delusions. Patient denies any side effects from the medications and has been compliant with meds. Mental Status Exam: General Appearance: Patient appears to be stated age is alert, more directable today, less argumentative. Patient appears to have fair hygiene and grooming. Behavior: Patient is seated without any agitated behavior. Less argumentative today. Speech: Patient's speech is hyperverbal. Mood/Affect: Patient reports their mood is "better", affect is congruent and labile. Suicidality/Homicidality: Patient denies having any homicidal ideation intent or plan. Denies any suicidal ideations intent or plan Perceptions: Patient denies any visual hallucinations and denies any auditory hallucinations Though content/process: She is preoccupied with his stressors and her medications, more logical today, tangential/circumstantial. Perseverates on her relationship with her . Memory and concentration: AOX3, grossly intact for the purposes of this session Judgment and insight: poor/superficial, improving mildly. Assessment Bipolar disorder, currently manic episode Alcohol use disorder Cannabis use disorder Nicotine dependence Plan: -Patient continues to meet criteria for inpatient psychiatric admission for symptom stabilization and safety. Patient has signed medication consent and was placed in patient's chart. Currently awaiting deferral and full hearing date as patient is currently involuntary. -Medications: Will increase Lamictal to 50 mg twice a day for mood stabilization/depression. Continue Zoloft 50 mg daily at bedtime for anxiety. Continue with Risperdal 0.5 mg nightly for mood stabilization/insomnia. -When necessary Ativan and Haldol IM for agitation/aggression. -NRT - nicotine gum -SW on board for discharge planning. Encouraged the patient to participate in milieu. Will need to arrange for a family meeting with patient's over the phone to further arrange for disposition/discharge. Patient is still considering whether she wants to press charges and file a police report against her .
[2020-01-16] MEDS: FLUTICASONE 50MCG/SPRAY NASAL 16GM EA NOSTRIL SCH ×2 (13:21→22:05)
[2020-01-16] MEDS: SYMBICORT 160-4.5 MCG INHALER INHALATION SCH ×2 (13:21→22:03)
[2020-01-16] MEDS: MELATONIN 5 MG TABLET PO SCH (22:05)
[2020-01-16] MEDS: risperiDONE 0.5 MG TAB PO SCH (22:06)
[2020-01-16] MEDS: SERTRALINE 50 MG TAB PO SCH (22:06)
[2020-01-17] MEDS: NICOTINE 7MG/24HR PATCH TRANSDERM SCH (09:01)
[2020-01-17] MEDS: ASPIRIN 81 MG PO SCH (09:01)
[2020-01-17] MEDS: PANTOPRAZOLE 40 MG TABLET PO SCH ×2 (09:01→21:26)
[2020-01-17] MEDS: LEVOTHYROXINE 75 MCG TAB PO SCH (09:01)
[2020-01-17] MEDS: ATORVASTATIN 10 MG TAB PO SCH (09:01)
[2020-01-17] MEDS: LORATADINE 10 MG TAB PO SCH (09:01)
[2020-01-17] MEDS: lamoTRIgine 25 MG TAB PO SCH ×2 (09:01→21:27)
[2020-01-17] MEDS: FLUTICASONE 50MCG/SPRAY NASAL 16GM EA NOSTRIL SCH ×2 (09:02→21:23)
[2020-01-17] MEDS: ALBUTEROL HFA INHALER INHALATION PRN (09:02)
[2020-01-17] MEDS: SYMBICORT 160-4.5 MCG INHALER INHALATION SCH ×2 (09:03→21:24)
[2020-01-17] MEDS: GLATIRAMER ACETATE 40 MG SQ SCH (10:00)
--- NOTE | 2020-01-17 13:12 | P.PN ---
Progress Note - Text Progress Note Date: 01/17/20 Interval History: Patient was seen taking part in group today and was directable and agreeable to speak with procedure writer in the office. Patient continues to be focused on discharge and continue the minimizing her hospitalization. Patient appeared to be less irritable today. She claims she is still depressed however that her mood has been gradually improving. Patient also continues to perseverate on her relationship with her and hopefully will be filing for divorce however now states that she just wants him to move out of the house and will plan to talk with him at a later point. Patient did mention that she may have an alternative to discharge and may go back to her mother's house to live with her temporarily. She continues to be somewhat argumentative at times. She claims that she has been trying to go to groups and participate as best she can. She states that she was able to sleep fairly last night. At this time patient denies any suicidal or homical ideations, intent or plan. Patient denies any auditory, visual hallucinations and denies any paranoia or delusions. Patient denies any side effects from the medications and has been compliant with meds. Mental Status Exam: General Appearance: Patient appears to be stated age is alert, more directable today, less argumentative. Patient appears to have fair hygiene and grooming. Behavior: Patient is seated without any agitated behavior. Less argumentative today. Speech: Patient's speech is hyperverbal. Mood/Affect: Patient reports their mood is "depressed", improving mildly, affect is congruent Suicidality/Homicidality: Patient denies having any homicidal ideation intent or plan. Denies any suicidal ideations intent or plan Perceptions: Patient denies any visual hallucinations and denies any auditory hallucinations Though content/process: She is preoccupied with his stressors and her medications, more logical today, tangential/circumstantial. Perseverates on her relationship with her . Minimizing her stressors and her symptoms. Memory and concentration: AOX3, grossly intact for the purposes of this session Judgment and insight: poor/superficial, improving mildly. Assessment Bipolar disorder, currently manic episode Alcohol use disorder Cannabis use disorder Nicotine dependence Plan: -Patient continues to meet criteria for inpatient psychiatric admission for symptom stabilization and safety. Patient has signed medication consent and was placed in patient's chart. Patient signed to deferral for treatment. -Medications: Will continue with Lamictal to 50 mg twice a day for mood stabilization/depression. Continue Zoloft 50 mg daily at bedtime for anxiety. Continue with Risperdal 0.5 mg nightly for mood stabilization/insomnia. -When necessary Ativan and Haldol IM for agitation/aggression. -NRT - nicotine gum -SW on board for discharge planning. Encouraged the patient to participate in milieu. cylinder worker continuing to attempt to talk with patient's to evaluate for any concerns in the house prior to discharge. Patient to sign release of information today to speak with patient's mother and discussed possible alternative to discharge patient to mother's house instead. Likely discharge Monday if patient does well over the weekend.
[2020-01-17 14:27] LABS: Appearance,Urine Cloudy (Clear); Bilirubin,Urine Negative (Negative); Blood,Urine Negative (Negative); Calcium Oxalate Crystals,Urine Moderate /hpf; Color,Urine Yellow; Glucose,Urine (UA) Negative (Negative); Ketones,Urine Negative (Negative); Leukocyte Esterase,Urine Trace (Negative); Mucus,Urine Many /hpf; Nitrite,Urine Negative (Negative); Protein,Urine Trace (Negative); RBC,Urine 2 /hpf (0-5); Specific Gravity,Urine 1.026 (1.001-1.035); Squamous Epithelial Cell,Urine 1 /hpf (0-4); Urobilinogen,Urine <2.0 mg/dL (<2.0); WBC,Urine 3 /hpf (0-5)
[2020-01-17 14:36] LABS: Amphetamine Screen,Urine Not Detected (NotDetected); Barbiturate Screen,Urine Not Detected (NotDetected); Benzodiazepines Screen,Urine Detected (NotDetected); Cocaine Screen,Urine Not Detected (NotDetected); Methadone Screen, Urine Not Detected (NotDetected); Opiate Screen,Urine Not Detected (NotDetected); Oxycodone Screen, Urine Not Detected (NotDetected); Phencyclidine Screen,Urine Not Detected (NotDetected); Tricyclic Antidepressant,Urine Not Detected (NotDetected); Urn Cannabinoid Scrn Detected (NotDetected)
[2020-01-17] MEDS: risperiDONE 0.5 MG TAB PO SCH (21:26)
[2020-01-17] MEDS: MELATONIN 5 MG TABLET PO SCH (21:26)
[2020-01-17] MEDS: SERTRALINE 50 MG TAB PO SCH (21:27)
[2020-01-17] MEDS: BENZOCAINE/MENTHOL LOZENG 1 EACH LOZENGE MUCOUS MEM PRN (23:15)
[2020-01-18 07:13] VITALS: RESP 16
[2020-01-18] MEDS: ALBUTEROL HFA INHALER INHALATION PRN ×2 (08:12→20:18)
[2020-01-18] MEDS: SYMBICORT 160-4.5 MCG INHALER INHALATION SCH ×2 (08:13→20:16)
[2020-01-18] MEDS: FLUTICASONE 50MCG/SPRAY NASAL 16GM EA NOSTRIL SCH ×2 (08:15→20:18)
[2020-01-18] MEDS: NICOTINE 7MG/24HR PATCH TRANSDERM SCH (08:16)
[2020-01-18] MEDS: ATORVASTATIN 10 MG TAB PO SCH (08:16)
[2020-01-18] MEDS: PANTOPRAZOLE 40 MG TABLET PO SCH ×2 (08:16→17:24)
[2020-01-18] MEDS: ASPIRIN 81 MG PO SCH (08:16)
[2020-01-18] MEDS: LEVOTHYROXINE 75 MCG TAB PO SCH (08:16)
[2020-01-18] MEDS: LORATADINE 10 MG TAB PO SCH (08:17)
[2020-01-18] MEDS: lamoTRIgine 25 MG TAB PO SCH ×2 (08:17→20:18)
[2020-01-18] MEDS: BENZOCAINE/MENTHOL LOZENG 1 EACH LOZENGE MUCOUS MEM PRN (09:23)
[2020-01-18] MEDS ORDERED: traZODone HCL 50 MG TAB PO PRN (14:55)
[2020-01-18] MEDS ORDERED: IBUPROFEN 200 MG TAB PO PRN (14:57)
[2020-01-18] MEDS: CHOLECALCIFEROL 1,000 UNIT TAB PO SCH (15:17)
[2020-01-18] MEDS: ASCORBIC ACID 500 MG TAB PO SCH (15:17)
[2020-01-18] MEDS: SERTRALINE 50 MG TAB PO SCH (20:18)
[2020-01-18] MEDS: risperiDONE 0.5 MG TAB PO SCH (20:18)
--- NOTE | 2020-01-18 21:32 | P.PN ---
Progress Note - Text Progress Note Date: 01/18/20 Subjective: Patient was seen today as a cross coverage for Dr. Hylton. The patient was evaluated, chart reviewed, case discussed with the treatment team. Patient reports interrupted sleep last night, and appetite was reported as "fine". Patient has been going to groups and other unit activities. The patient is compliant with her medications and denies any adverse reactions. She denies feeling depressed but continued to have high anxiety. Pt was preoccupied with physical symptoms and was fixated on UA results which was cleared by medical team. Denies any manic or psychotic symptoms. Requested to start vitamin supplementation which she used to take at home. Reports was taking Trazodone which helped with her sleep. Objective: Vitals has been reviewed. Mental status examination; Appearance: The patient appears stated age, adequately groomed and dressed, no specific features. Gait/posture: Normal gait, Normal arm swinging: No abnormal movements. Attitude and behavior: engaged, cooperative, eye contact. Motor activity: Normal psychomotor activity Speech: Normal rate, tone. Mood: Anxious, irritable Affect: Constricted Thought form: goal-directed, linear, coherent. Thought content: Non-delusional, denies suicidal thoughts, denies homicidal thoughts, denies intentions or plans. Perception: Denies any auditory or visual hallucinations Attention: No impairment. Orientation: Patient patient was fully oriented to time place person and situation. Insight: Patient has fair insight about her psychiatric disorder. Judgment: Patient has fair judgment about her psychiatric treatment. Assessment: Bipolar disorder, currently manic episode Alcohol use disorder Cannabis use disorder Nicotine dependence Plan: Continue inpatient level of care due to need for further stabilization Precautions: Continue 15 minutes check for safety. Consider medical consultation if any acute medical issues arise. Provide the patient individual, group therapy, substance use disorder counseling to give better insight and learn coping skills. Medications: Risperidone for mood stabilization, Zoloft for depression and anxiety. Start Trazodone 25 mg HS PRN insomnia. Start Vitamin Supplement D and C. Continue PRN psych medications Continue non-psychiatric medications for management of co-morbid medical problems. Discharge patient to OUTPATIENT services upon a stabilization
[2020-01-18] MEDS: MELATONIN 5 MG TABLET PO SCH (22:53)
[2020-01-19] MEDS: LEVOTHYROXINE 75 MCG TAB PO SCH (06:35)
[2020-01-19] MEDS ORDERED: FORMOTEROL INHALATION SCH ×2 (08:00→09:00)
[2020-01-19] MEDS ORDERED: MOMETASONE INHALATION SCH ×2 (08:00→09:00)
[2020-01-19] MEDS: FLUTICASONE 50MCG/SPRAY NASAL 16GM EA NOSTRIL SCH ×2 (08:07→21:39)
[2020-01-19] MEDS: ALBUTEROL HFA INHALER INHALATION PRN (08:07)
[2020-01-19] MEDS: SYMBICORT 160-4.5 MCG INHALER INHALATION SCH (08:07)
[2020-01-19] MEDS: NICOTINE 7MG/24HR PATCH TRANSDERM SCH (08:08)
[2020-01-19] MEDS: PANTOPRAZOLE 40 MG TABLET PO SCH ×2 (08:08→16:51)
[2020-01-19] MEDS: ATORVASTATIN 10 MG TAB PO SCH (08:09)
[2020-01-19] MEDS: ASPIRIN 81 MG PO SCH (08:09)
[2020-01-19] MEDS: ASCORBIC ACID 500 MG TAB PO SCH (08:09)
[2020-01-19] MEDS: CHOLECALCIFEROL 1,000 UNIT TAB PO SCH (08:09)
[2020-01-19] MEDS: lamoTRIgine 25 MG TAB PO SCH ×2 (08:10→21:41)
[2020-01-19] MEDS: LORATADINE 10 MG TAB PO SCH (08:10)
--- NOTE | 2020-01-19 12:27 | P.PN ---
Progress Note - Text Progress Note Date: 01/19/20 Subjective: Patient was seen today as a cross coverage for Dr. Hylton. The patient was evaluated, chart reviewed, case discussed with the treatment team. Patient reports his sleep is better yes last night was taking trazodone but she is to take 50 mg at home. She denies any appetite problems and she was attending groups today. Denies any depression, and reports her anxiety is better and manageable. Denies any suicidal or homicidal ideation. Patient was talking about chronic psychological trauma and she has been dealing with some PTSD symptoms. She reports last night had sitter came earlier and she was able to use a CPAP machine earlier so she had better sleep. Reports has discussed discharge plan with her primary team and is scheduled to leave tomorrow. Objective: Vitals has been reviewed. Mental status examination; Appearance: The patient appears stated age, adequately groomed and dressed, no specific features. Gait/posture: Normal gait, Normal arm swinging: No abnormal movements. Attitude and behavior: engaged, cooperative, eye contact. Motor activity: Normal psychomotor activity Speech: Normal rate, tone. Mood: Anxious, irritable Affect: Constricted Thought form: goal-directed, linear, coherent. Thought content: Non-delusional, denies suicidal thoughts, denies homicidal thoughts, denies intentions or plans. Perception: Denies any auditory or visual hallucinations Attention: No impairment. Orientation: Patient patient was fully oriented to time place person and situation. Insight: Patient has fair insight about her psychiatric disorder. Judgment: Patient has fair judgment about her psychiatric treatment. Assessment: Bipolar disorder, currently manic episode Alcohol use disorder Cannabis use disorder Nicotine dependence Plan: Continue inpatient level of care due to need for further stabilization Precautions: Continue 15 minutes check for safety. Consider medical consultation if any acute medical issues arise. Provide the patient individual, group therapy, substance use disorder counseling to give better insight and learn coping skills. Medications: Risperidone for mood stabilization, Zoloft for depression and anxiety. Continue Trazodone 25 mg HS PRN insomnia. Patient to take another 25 mg of still not able to sleep. Continue Vitamin Supplement D and C. Continue PRN psych medications Continue non-psychiatric medications for management of co-morbid medical problems.
[2020-01-19] MEDS: MOMETASONE INHALATION SCH (21:36)
[2020-01-19] MEDS: FORMOTEROL INHALATION SCH (21:36)
[2020-01-19] MEDS: MELATONIN 5 MG TABLET PO SCH ×2 (21:39→23:13)
[2020-01-19] MEDS: risperiDONE 0.5 MG TAB PO SCH (21:40)
[2020-01-19] MEDS: SERTRALINE 50 MG TAB PO SCH (21:45)
[2020-01-19] MEDS: traZODone HCL 50 MG TAB PO PRN ×2 (23:12→23:14)
[2020-01-19] MEDS: BENZOCAINE/MENTHOL LOZENG 1 EACH LOZENGE MUCOUS MEM PRN (23:30)
[2020-01-20] MEDS: LEVOTHYROXINE 75 MCG TAB PO SCH (06:36)
[2020-01-20 07:00] VITALS: BP 117/55; PULSE 88; TEMP 98.7
[2020-01-20] MEDS: ASCORBIC ACID 500 MG TAB PO SCH (08:49)
[2020-01-20] MEDS: NICOTINE 7MG/24HR PATCH TRANSDERM SCH (08:49)
[2020-01-20] MEDS: CHOLECALCIFEROL 1,000 UNIT TAB PO SCH (08:49)
[2020-01-20] MEDS: ATORVASTATIN 10 MG TAB PO SCH (08:49)
[2020-01-20] MEDS: LORATADINE 10 MG TAB PO SCH (08:49)
[2020-01-20] MEDS: lamoTRIgine 25 MG TAB PO SCH (08:49)
[2020-01-20] MEDS: PANTOPRAZOLE 40 MG TABLET PO SCH (08:49)
[2020-01-20] MEDS: FORMOTEROL INHALATION SCH (08:50)
[2020-01-20] MEDS: ASPIRIN 81 MG PO SCH (08:50)
[2020-01-20] MEDS: MOMETASONE INHALATION SCH (08:50)
[2020-01-20] MEDS: FLUTICASONE 50MCG/SPRAY NASAL 16GM EA NOSTRIL SCH (08:50)
[2020-01-20] MEDS: ALBUTEROL HFA INHALER INHALATION PRN (08:51)
[2020-01-20] MEDS: GLATIRAMER ACETATE 40 MG SQ SCH (08:52)
--- NOTE | 2020-01-20 09:34 | P.DS ---
Providers Date of admission: 01/14/20 14:33 Expected date of discharge: 01/20/20 Attending physician: Bryant Hylton MD Consults: 01/14/20 14:56 Consult Physician Routine Consulting Provider: Ashley Mcgovern Consult Reason/Comments: H&P and medical Do you want consulting provider notified?: Yes Primary care physician: Meghana Houston - Discharge Diagnosis(es) (1) Bipolar disorder, current episode manic without psychotic features Current Visit: Yes Status: Acute Priority: High (2) Alcohol use disorder Current Visit: Yes Status: Acute Priority: Medium (3) Cannabis use disorder, mild, abuse Current Visit: Yes Status: Acute Priority: Low (4) Nicotine dependence Current Visit: Yes Status: Acute Priority: Low Hospital Course: Admission HPI: Patient is a 55-year-old female with a history of MS and bipolar disorder who currently lives in a house is with 2 kids and collects Social Security disability. Patient presented to the hospital yesterday with manic behavior at home. Patient apparently was found in the yard "running around naked" according to ER report. Patient also was reported to be angry and combative towards family members at home and need to be sedated with ketamine by EMS. Patient also was noted to try to take off her clothes and escape in the ER. Patient was seen today by junior technical writer for evaluation and appeared to be tangential, illogical at times and argumentative with junior technical writer. Patient was minimizing her symptoms and had poor judgment. She claims that she lives in a "dramatic household" and spoke negatively about her being immature and doesn't know how to "discuss our problems". She spoke about her 2 children who have recently moved back into her house and were not doing well socially and in the wrong lives. She spoke about her son being "clingy and anxious and having difficulty with his friends and smoking pot. She also spoke about her daughter moving away to college and "screwed up her life" and has now resumed moved back to the house with them. She spoke negatively about her marriage with her and states that "I don't want to live with him anymore" and also states that "I hit my bottom with him". She states that she is having financial difficulties and believes that her thinks that she is cheating on him. She apparently has told him that she wants to file for separation and move out of the house. She claims that her mood is "sad" and states that her sleep is "okay". She claims that she has been owing up with her outpatient psychiatrist regularly and has been taking her medications. Patient denies any suicidal or homicidal ideations intent or plan. At this time patient denies any auditory or visual hallucinations. Patient admits to flight of ideas and racing thoughts. Patient admits to using alcohol daily drinking "twisted teas" 1-2 drinks per day and also smokes cigarettes daily. She states that she smokes marijuana daily. Hospital course: Upon admission to the unit patient was initially loud, hyperverbal and agitated. Patient came to the unit with a petition and certificate and a second certificate was filed and patient ended up deferring court. Patient was however directable and agreeable to commence treatment. Patient got along well with other patients on the unit and followed unit protocol. Patient was compliant with the medications and denied any side effects throughout hospital course. Patient was started on her home dose of Zoloft 50 mg nightly for anxiety, Lamictal was increased to 50 mg twice a day for mood stabilization/depression, patient was also started on Risperdal 0.5 mg nightly for mood stabilization/insomnia. Patient was also started on trazodone 50 mg daily at bedtime when necessary for insomnia. Patient spoke of her stressors and engaged in therapy both group and individual. Patient did have concerns about her and her life at home and was speaking about possible divorce and court proceedings however patient ended up making amends with her and wants to work through their problems. Patient was also seen by medical team for history and physical exam. Throughout the course of the hospitalization patient gradua lly improved with regards to mood, anxiety, sleep and became future oriented with improved insight and judgment. On the day of discharge patient denied any suicidal or homicidal ideations intent or plan denied any auditory or visual hallucinations. Patient endorsed wanting to live for her future and her family. Patient denied any paranoia and did not endorse any delusions. Patient does have a significant history of substance abuse and was counseled on abstaining from all substances including alcohol and marijuana. Patient claims that she wanted to cut back her substance use on her own. Patient was also counseled on the medications and need for regular compliance and was encouraged to follow-up with their outpatient appointment for mental health and also for primary care. Prior to discharge a family meeting will be arranged by director of social media marketing to answer any questions and ensure safety upon discharge. Mental status exam: General Appearance: Patient appears to be stated age is alert, pleasant, and cooperative. Patient is in no acute distress and has fair hygiene and grooming Behavior: Patient is calmly seated without any agitated behavior. Cooperative. Speech: Patient's speech is fluent and nonpressured. Mood/Affect: Patient reports their mood is "better", affect is congruent and euthymic. Suicidality/Homicidality: Patient denies having any suicidal or homicidal ideation intent or plan. Perceptions: Patient denies any auditory or visual hallucinations. Though content/process: There is no evidence of any delusional thought content and thought process is linear and goal-directed. more future oriented Memory and concentration: AOX3, grossly intact for the purposes of this session. Can spell "WORLD" backwards correctly. Judgment and insight: Improved with guarded prognosis Impression: Bipolar disorder, current episode amarilis without psychotic features Alcohol use disorder Cannabis use disorder, mild Nicotine dependence. Plan: -Continue with discharge today as patient has improved and stabilized psychiatrically and is not currently an imminent threat to herself and/or others. -Continue medications: Continue with Zoloft 50 mg nightly for mood/anxiety, Lamictal 50 mg twice a day for mood stabilization/depression, Risperdal 0.5 mg nightly for mood stabilization/insomnia, trazodone 50 mg daily at bedtime when necessary for insomnia. -Patient was counseled on the need for medication compliance and appropriate follow-up at mental health and also primary care for medical issues. Patient verbalized understanding and agreed. -Social work to arrange for and conduct family meeting to ensure safety upon discharge and answer any questions/concerns. Social work also to arrange for patients follow up appointments with her psychiatrist Dr. Atkinson for psychiatric care along with follow up with primary care provider. Patient will also be inquiring about individual therapy and also family therapy, patient was encouraged to do so. -Patient counseled on abstaining from recreational drugs and marijuana and alcohol. Was informed/educated on the adverse effects on their physical and mental health. Patient verbally agreed and understood. Patient wanted to cut back use on her own. -Patient was instructed to return to the hospital or seek immediate medical care if their psychiatric or medical symptoms do worsen or reoccur. Allergies Allergy/AdvReac Type Severity Reaction Status Date / Time amoxicillin Allergy Rash/Hives Verified 01/14/20 18:13 Laboratory Results WBC 10.1 k/uL (3.8-10.6) 01/15/20 08:39 RBC 4.93 m/uL (3.80-5.40) 01/15/20 08:39 Hgb 10.9 gm/dL (11.4-16.0) L 01/15/20 08:39 Hct 36.7 % (34.0-46.0) 01/15/20 08:39 MCV 74.3 fL (80.0-100.0) L 01/15/20 08:39 MCH 22.1 pg (25.0-35.0) L 01/15/20 08:39 MCHC 29.8 g/dL (31.0-37.0) L 01/15/20 08:39 RDW 15.5 % (11.5-15.5) 01/15/20 08:39 Plt Count 299 k/uL (150-450) 01/15/20 08:39 Neutrophils % 58 % 01/15/20 08:39 Lymphocytes % 25 % 01/15/20 08:39 Monocytes % 7 % 01/15/20 08:39 Eosinophils % 6 % 01/15/20 08:39 Basophils % 1 % 01/15/20 08:39 Neutrophils # 5.8 k/uL (1.3-7.7) 01/15/20 08:39 Lymphocytes # 2.5 k/uL (1.0-4.8) 01/15/20 08:39 Monocytes # 0.7 k/uL (0-1.0) 01/15/20 08:39 Eosinophils # 0.6 k/uL (0-0.7) 01/15/20 08:39 Basophils # 0.1 k/uL (0-0.2) 01/15/20 08:39 Hypochromasia Marked 01/15/20 08:39 Microcytosis Slight 01/15/20 08:39 Sodium 136 mmol/L (137-145) L 01/16/20 09:02 Potassium 4.0 mmol/L (3.5-5.1) 01/16/20 09:02 Chloride 108 mmol/L (98-107) H 01/16/20 09:02 Carbon Dioxide 23 mmol/L (22-30) 01/16/20 09:02 Anion Gap 5 mmol/L 01/16/20 09:02 BUN 18 mg/dL (7-17) H 01/16/20 09:02 Creatinine 0.99 mg/dL (0.52-1.04) 01/16/20 09:02 Est GFR (CKD-EPI)AfAm 74 (>60 ml/min/1.73 sqM) 01/16/20 09:02 Est GFR (CKD-EPI)NonAf 65 (>60 ml/min/1.73 sqM) 01/16/20 09:02 Glucose 141 mg/dL (74-99) H 01/16/20 09:[address] Glu mg/dL 137 01/15/20 08:39 Hemoglobin A1c 6.4 % (4.0-6.0) H 01/15/20 08:39 Calcium 8.8 mg/dL (8.4-10.2) 01/16/20 09:02 Magnesium 1.8 mg/dL (1.6-2.3) 01/16/20 09:02 Total Bilirubin 0.5 mg/dL (0.2-1.3) 01/15/20 08:39 AST 38 U/L (14-36) H 01/15/20 08:39 ALT 20 U/L (4-34) 01/15/20 08:39 Alkaline Phosphatase 103 U/L (38-126) 01/15/20 08:39 Total Protein 6.8 g/dL (6.3-8.2) 01/15/20 08:39 Albumin 4.3 g/dL (3.5-5.0) 01/15/20 08:39 Triglycerides 137 mg/dL (<150) 01/15/20 08:39 Cholesterol 138 mg/dL (<200) 01/15/20 08:39 LDL Cholesterol, Calc 56 mg/dL (0-99) 01/15/20 08:39 HDL Cholesterol 55 mg/dL (40-60) 01/15/20 08:39 TSH 5.160 mIU/L (0.465-4.680) H 01/15/20 08:39 Free T4 1.72 ng/dL (0.78-2.19) 01/15/20 08:29 Urine Color Yellow 01/17/20 10:42 Urine Appearance Cloudy (Clear) H 01/17/20 10:42 Urine pH 6.0 (5.0-8.0) 01/17/20 10:42 Ur Specific Orange 1.026 (1.001-1.035) 01/17/20 10:42 Urine Protein Trace (Negative) H 01/17/20 10:42 Urine Glucose (UA) Negative (Negative) 01/17/20 10:42 Urine Ketones Negative (Negative) 01/17/20 10:42 Urine Blood Negative (Negative) 01/17/20 10:42 Urine Nitrite Negative (Negative) 01/17/20 10:42 Urine Bilirubin Negative (Negative) 01/17/20 10:42 Urine Urobilinogen <2.0 mg/dL (<2.0) 01/17/20 10:42 Ur Leukocyte Esterase Trace (Negative) H 01/17/20 10:42 Urine RBC 2 /hpf (0-5) 01/17/20 10:42 Urine WBC 3 /hpf (0-5) 01/17/20 10:42 Ur Squamous Epith Cells 1 /hpf (0-4) 01/17/20 10:42 Calcium Oxalate Crystal Moderate /hpf (None) H 01/17/20 10:42 Urine Mucus Many /hpf (None) H 01/17/20 10:42 Urine Opiates Screen Not Detected (NotDetected) 01/17/20 10:42 Ur Oxycodone Screen Not Detected (NotDetected) 01/17/20 10:42 Urine Methadone Screen Not Detected (NotDetected) 01/17/20 10:42 Ur Propoxyphene Screen Not Detected (NotDetected) 01/17/20 10:42 Ur Barbiturates Screen Not Detected (NotDetected) 01/17/20 10:42 U Tricyclic Antidepress Not Detected (NotDetected) 01/17/20 10:42 Ur Phencyclidine Scrn Not Detected (NotDetected) 01/17/20 10:42 Ur Amphetamines Screen Not Detected (NotDetected) 01/17/20 10:42 U Methamphetamines Scrn Not Detected (NotDetected) 01/17/20 10:42 U Benzodiazepines Scrn Detected (NotDetected) H 01/17/20 10:42 Urine Cocaine Screen Not Detected (NotDetected) 01/17/20 10:42 U Marijuana (THC) Screen Detected (NotDetected) H 01/17/20 10:42 Serum Alcohol <10 mg/dL 01/14/20 10:42 Vital Signs Temp 98.7 F 01/20/20 06:31 Pulse 88 01/20/20 06:31 Resp 16 01/20/20 06:31 BP 117/55 01/20/20 06:31 Pulse Ox 98 01/19/20 06:20 Intake & Output 01/19/20 01/20/20 01/20/20 18:59 06:59 18:59 Weight 92.4 kg Patient Condition at Discharge: Stable Plan - Discharge Summary New Discharge Prescriptions: New Benzocaine/Menthol Lozeng [Cepacol lozenge] 1 each MUCOUS MEM Q4HR PRN 14 Days lozenge PRN Reason: Sore Throat traZODone HCL [Desyrel] 50 mg PO HS PRN 30 Days tab PRN Reason: Insomnia Nicotine 7Mg/24Hr Patch [Habitrol] 1 patch TRANSDERM DAILY 14 Days patch lamoTRIgine [LaMICtal] 50 mg PO BID 30 Days tab Melatonin 5 mg PO HS 30 Days tablet risperiDONE [RisperDAL] 0.5 mg PO HS 30 Days tab Acetaminophen Tab [Tylenol] 650 mg PO Q4HR PRN tab PRN Reason: Pain/Discomfort Sertraline [Zoloft] 50 mg PO HS 30 Days tab Continue Mometasone/Formoterol [Dulera 200 Mcg-5 Mcg Inhaler] 2 puff INHALATION RT-BID Albuterol Sulfate [Ventolin HFA] 2 puff INHALATION RT-Q4H PRN PRN Reason: Shortness Of Breath Lansoprazole [Prevacid] 30 mg PO BID Fluticasone Nasal [place] [Flonase Nasal [place]] 2 spr EA NOSTRIL BID Lisinopril-Hctz 10-12.5 mg [Zestoretic 10-12.5] 1 tab PO DAILY Loratadine [Claritin] 10 mg PO DAILY Magnesium 200 mg PO DAILY Cholecalciferol [Vitamin D3 (25 Mcg = 1000 Iu)] 1,000 unit PO HS Atorvastatin [Lipitor] 10 mg PO DAILY Levothyroxine Sodium [Synthroid] 150 mcg PO DAILY Aspirin EC [Ecotrin Low Dose] 81 mg PO DAILY Ascorbic Acid [Vitamin C] 500 mg PO DAILY Potassium Gluconate 99 mg PO DAILY Glatiramer Acetate [Copaxone] 40 mg SQ DIRECTED Ipratropium [place] 0.06%Nasal [Atrovent Nasal 0.06%] 2 spray EA NOSTRIL QID PRN PRN Reason: Allergy Symptoms Montelukast Sodium [Singulair] 10 mg PO HS Discontinued traZODone HCL [Desyrel] 50 mg PO HS PRN PRN Reason: SLEEP Sertraline [Zoloft] 50 mg PO HS tab traZODone HCL [Desyrel] 100 mg PO HS PRN PRN Reason: SLEEP lamoTRIgine [LaMICtal] 25 mg PO BID Discharge Medication List Albuterol Sulfate [Ventolin HFA] 2 puff INHALATION RT-Q4H PRN 09/26/15 [History] Mometasone/Formoterol [Dulera 200 Mcg-5 Mcg Inhaler] 2 puff INHALATION RT-BID 09/26/15 [History] Fluticasone Nasal [place] [Flonase Nasal [place]] 2 spr EA NOSTRIL BID 01/24/17 [History] Lansoprazole [Prevacid] 30 mg PO BID 01/24/17 [History] Lisinopril-Hctz 10-12.5 mg [Zestoretic 10-12.5] 1 tab PO DAILY 12/21/17 [History] Aspirin EC [Ecotrin Low Dose] 81 mg PO DAILY 12/12/18 [History] Atorvastatin [Lipitor] 10 mg PO DAILY 12/12/18 [History] Cholecalciferol [Vitamin D3 (25 Mcg = 1000 Iu)] 1,000 unit PO HS 12/12/18 [History] Levothyroxine Sodium [Synthroid] 150 mcg PO DAILY 12/12/18 [History] Loratadine [Claritin] 10 mg PO DAILY 12/12/18 [History] Magnesium 200 mg PO DAILY 12/12/18 [History] Ascorbic Acid [Vitamin C] 500 mg PO DAILY 11/17/19 [History] Potassium Gluconate 99 mg PO DAILY 11/17/19 [History] Glatiramer Acetate [Copaxone] 40 mg SQ DIRECTED 01/14/20 [History] Ipratropium [place] 0.06%Nasal [Atrovent Nasal 0.06%] 2 spray EA NOSTRIL QID PRN 01/14/20 [History] Montelukast Sodium [Singulair] 10 mg PO HS 01/14/20 [History] Acetaminophen Tab [Tylenol] 650 mg PO Q4HR PRN tab 01/20/20 [Rx] Benzocaine/Menthol Lozeng [Cepacol lozenge] 1 each MUCOUS MEM Q4HR PRN 14 Days lozenge 01/20/20 [Rx] Melatonin 5 mg PO HS 30 Days tablet 01/20/20 [Rx] Nicotine 7Mg/24Hr Patch [Habitrol] 1 patch TRANSDERM DAILY 14 Days patch 01/20/20 [Rx] Sertraline [Zoloft] 50 mg PO HS 30 Days tab 01/20/20 [Rx] lamoTRIgine [LaMICtal] 50 mg PO BID 30 Days tab 01/20/20 [Rx] risperiDONE [RisperDAL] 0.5 mg PO HS 30 Days tab 01/20/20 [Rx] traZODone HCL [Desyrel] 50 mg PO HS PRN 30 Days tab 01/20/20 [Rx] Follow up Appointment(s)/Referral(s): Meghana Houston, [Primary Care Provider] - 1-2 days Activity/Diet/Wound Care/Special Instructions: Per Dr. Kent, re-check Thyroid Stimulating Hormone (TSH) in 2-4 weeks, between January 30-. Activity and diet as tolerated. Avoid the use of street drugs and alcohol. Take all medications as prescribed. When you are in need of refills on your medicatio ns please contact your medical provider and/or outpatient psychiatrist to have this done. Please go to scheduled outpatient appointment for aftercare treatment. If symptoms return or become worse, call the crisis line at and/or go to the nearest emergency room for evaluation. Discharge Disposition: HOME SELF-CARE
== END 2020-01-20 13:30 | disposition home or self-care (01) | DRG 885 ==
LOC: EC 10:21 → 3MHU 14:33
PROVIDERS: ADMIT Psychiatry & Neurology Psychiatry; ATTEND Psychiatry & Neurology Psychiatry
DX: F31.2 Bipolar disorder, current episode manic severe with psychotic features (principal); N17.9 Acute kidney failure, unspecified; G35 Multiple sclerosis; J44.9 Chronic obstructive pulmonary disease, unspecified; F10.10 Alcohol abuse, uncomplicated; F12.10 Cannabis abuse, uncomplicated; F41.0 Panic disorder [episodic paroxysmal anxiety]; F43.10 Post-traumatic stress disorder, unspecified; E03.9 Hypothyroidism, unspecified; E78.5 Hyperlipidemia, unspecified; G47.00 Insomnia, unspecified; J45.909 Unspecified asthma, uncomplicated; I10 Essential (primary) hypertension; F17.210 Nicotine dependence, cigarettes, uncomplicated; Z79.82 Long term (current) use of aspirin; Z79.890 Hormone replacement therapy; Z79.51 Long term (current) use of inhaled steroids; Z79.899 Other long term (current) drug therapy; Z78.1 Physical restraint status; Z90.49 Acquired absence of other specified parts of digestive tract; Z86.010 Personal history of colon polyps; Z87.19 Personal history of other diseases of the digestive system; Z98.890 Other specified postprocedural states; Z88.0 Allergy status to penicillin; Z80.8 Family history of malignant neoplasm of other organs or systems
CPT/HCPCS: 36415; 80048; 80053; 80061; 80306; 80320; 81001; 83036; 83735; 84439; 84443; 85025; 96372; 99285

== ENCOUNTER → 2022-05-11 | Outpatient (CLI) | payer OTHER ==
--- NOTE | 2022-05-12 18:49 | MM ---
Reason for Exam: Screening (asymptomatic). Last mammogram was performed 4 year(s) and 1 month(s) ago. Patient History: Menarche at age 12. First Full-Term at age 24. Postmenopausal. Patient has history of breast feeding. Hormonal Contraceptives, starting at age 43 for 4 years, 4 months. Sister had breast cancer, age 41. Mother had breast cancer, age 75. Risk Values: [place]orena 5 year model risk: 5.2%. NCI Lifetime model risk: 28.3%. Prior Study Comparison: 03/27/2015 Bilateral Screening Mammogram, [facility]. 05/11/2016 Bilateral Screening Mammogram, [facility]. 04/06/2018 Bilateral Screening Mammogram, [facility]. Tissue Density: There are scattered fibroglandular densities. Findings: Analyzed By CAD. Small area of microcalcifications far posterior 10:00 left breast have increased from 2018. Further evaluation of magnification views recommended. Otherwise, no significant change. Overall Assessment: Incomplete: need additional imaging evaluation, BI-RAD 0 Management: Special View Mammogram of the left breast. Including mag CC, mag LM, and 3-D LM views. . Note the patient's very high Lorena score and overall lifetime risk for the development of breast cancer. Consider specialist referral to assess eligibility for a risk reducing agent. In addition, the patient may qualify for future screening with alternating mammogram and breast MRI. [facility] will attempt to contact patient to return for supplemental views and ultrasound if indicated. Electronically signed and approved by: Edvin Dickson M.D. Radiologist
== END | disposition home or self-care (01) ==
LOC: RADMAMWWP 13:18
PROVIDERS: ATTEND Family Medicine
DX: Z12.31 Encounter for screening mammogram for malignant neoplasm of breast (principal); Z78.0 Asymptomatic menopausal state; Z80.3 Family history of malignant neoplasm of breast
CPT/HCPCS: 77063; 77067

== ENCOUNTER → 2022-05-18 | Outpatient (CLI) | payer OTHER ==
--- NOTE | 2022-05-18 14:10 | MM ---
Reason for Exam: Additional evaluation requested from abnormal screening. Last screening mammogram was performed less than 1 month ago. Patient History: Menarche at age 12. First Full-Term at age 24. Postmenopausal. Patient has history of breast feeding. Hormonal Contraceptives, starting at age 43 for 4 years, 4 months. Sister had breast cancer, age 41. Mother had breast cancer, age 75. Risk Values: Lorena 5 year model risk: 5.2%. NCI Lifetime model risk: 28.3%. Prior Study Comparison: 05/11/2016 Bilateral Screening Mammogram, [facility]. 04/06/2018 Bilateral Screening Mammogram, [facility]. 05/11/2022 Bilateral MG 3D screening mammo w/cad, [facility]. Tissue Density: Left: There are scattered fibroglandular densities. Findings: Analyzed By CAD. Grouped calcifications within the left breast are new from 2018. These are located posterior depth approximately 9.2 cm from the nipple in the medial aspect and slightly above the nipple on LM view quadrant. Overall Assessment: Suspicious, BI-RAD 4 Management: Stereotactic Core Biopsy of the left breast. A clinical breast exam by your physician is recommended on an annual basis and results should be correlated with mammographic findings. This exam should not preclude additional follow-up of suspicious palpable abnormalities. Results were given to the patient verbally at the time of exam. Electronically signed and approved by: Hero Amanda DO
== END | disposition home or self-care (01) ==
LOC: RADMAMWWP 13:39
PROVIDERS: ATTEND Family Medicine
DX: R92.8 Other abnormal and inconclusive findings on diagnostic imaging of breast (principal); Z78.0 Asymptomatic menopausal state; Z80.3 Family history of malignant neoplasm of breast
CPT/HCPCS: 77061; 77065

== ENCOUNTER → 2022-05-20 | Day surgery (SDC) | payer OTHER ==
[2022-05-20 07:37] VITALS: RESP 16
[2022-05-20 08:56] VITALS: BP 148/83; PULSE 69; TEMP 98.1
--- NOTE | 2022-05-27 09:01 | MM ---
Risk Values: Lorena 5 year model risk: 5.2%. NCI Lifetime model risk: 28.3%. Prior Study Comparison: 04/06/2018 Bilateral Screening Mammogram, [facility]. 05/11/2022 Bilateral MG 3D screening mammo w/cad, [facility]. 05/18/2022 Left MG 3D work up w/cad , [facility]. Pathology Description: Location: 10 o'clock, posterior, central. Marker Left Behind. Specimen Radiograph. Approach: Medial to Lateral Cores: 7 Skin Nicks: 1 Gauge: 9 The procedure of stereotactic guided core biopsy was explained to the patient. Benefits, alternatives, and risks were discussed. An informed consent was then obtained. [facility]. Shortness pathway was medial to lateral approach. I performed the localization and biopsy. A vacuum assisted biopsy gun was used to obtain multiple core samples. The patient tolerated the procedure well without any immediate complication. The patient was kept in the radiology department for short stay after the procedure and then discharged home in stable condition. Targeted calcifications are identified in specimen mammogram. Impression: SUCCESSFUL, UNCOMPLICATED STEREOTACTIC GUIDED CORE BIOPSY OF AREA OF CONCERN IN THE LEFT BREAST. Pathology Results: Result: Benign, Fibrocystic change. LEFT BREAST, CORE BIOPSY: Fibrocystic change with apocrine metaplasia and focal microcalcification (see note). Overall Assessment: Benign Management: Diagnostic Mammogram of the left breast in 6 months. Electronically signed and approved by: Ricardo Godoy D.O.
== END ==
LOC: RADMAMWWP 07:18
PROVIDERS: ATTEND Family Medicine
DX: N60.12 Diffuse cystic mastopathy of left breast (principal); R92.0 Mammographic microcalcification found on diagnostic imaging of breast
CPT/HCPCS: 88305; 19081; A4648; J2001

== ENCOUNTER → 2023-03-02 | Outpatient (CLI) | payer MEDICAID ==
--- NOTE | 2023-03-02 14:40 | MR ---
EXAMINATION TYPE: MR brain wo/w con DATE OF EXAM: 03/02/2023 COMPARISON: 07/19/2018 HISTORY: 58-year-old female G35, Dizziness, MS check-up TECHNIQUE: Multiplanar, multisequence images of the brain and brainstem is performed without and with utilizing 10.5 mL intravenous Gadavist gadolinium contrast. Demyelinating disease protocol with additional Sag ittal Flair sequence performed. FINDINGS: T2 Lesions Present : Yes Approximate Number of Lesions: Approximately 10 in the left cerebral hemisphere and 5 and the right c erebral hemisphere. Locations Identified : Subcortical and periventricular regions. Size of Reference Lesion(s): 1. 1.1 x 0.7 cm axial image 22 in the anterior left periventricular region (versus 7 x 4 mm, previou sly). 2 1.0 x 0.6 cm in the right parieto-occipital junction axial image 14 (new from prior) Enhancing Lesion(s) Present: Reference lesion #2 shows corresponding restricted diffusion and mild pu nctate areas of enhancement. T1 Hypointense Lesion(s) Present: Yes Change from Prior: Slight interval increase in size of reference lesion 1 and new reference lesion 2. Diffusion weighted images demonstrate a 1 cm area of increased signal right parieto-occipital junctio n. There is no worrisome extra-axial fluid collection. The ventricular system and cisternal spaces are normal in size and appearance. The brain volume is age appropriate. 8 mm pineal gland cyst redemonstrated. Otherwise, midline structures demonstrate normal morphology. The craniocervical junction appears within normal limits. Post contrast images demonstrate no other abnormal enhancement. The dural venous sinuses appear paten t. Prominent fluid within the bilateral mastoid air cells. Mild to moderate mucosal thickening throughout the ethmoid air cells, right greater than left. Globes are intact. IMPRESSION: 1. Findings suspicious for slight disease progression. A plaque at the anterior left paraventricular region is slightly larger. Also, there is a new 1 cm focus of punctate enhancement in corresponding r estricted diffusion at the right parieto-occipital junction. An area of subacute white matter infarct versus an actively demyelinating plaque are in the differential. 2. Background mild burden of MS plaques. 3. Extensive fluid throughout the bilateral mastoid air cells. Correlate for any mastoid pain to excl ude mastoiditis.
== END | disposition home or self-care (01) ==
LOC: RADMRIMAIN 10:31
PROVIDERS: ATTEND Psychiatry & Neurology Neurology
DX: G35 Multiple sclerosis (principal); G93.89 Other specified disorders of brain
CPT/HCPCS: 70553; A9585

== ENCOUNTER → 2023-03-15 | Outpatient (CLI) | payer MEDICAID ==
[2023-03-16 02:57] LABS: ALT 20 U/L (8-44); AST 13 U/L (13-35); Albumin 4.3 d/dL (3.8-4.9); Albumin/Globulin Ratio 1.79 Ratio (1.60-3.17); Alkaline Phosphatase 122 U/L (41-126); BUN/Creat Ratio 13.33 Ratio (12.00-20.00); Calcium 9.5 mg/dL (8.7-10.3); Carbon Dioxide 24.3 mmol/L (21.6-31.8); Chloride 104 mmol/L (96-109); Globulin 2.4 d/dL (1.6-3.3); Glucose 97 mg/dL (70-110); Potassium 4.3 mmol/L (3.5-5.5); Sodium 141 mmol/L (135-145); Total Bilirubin 0.2 mg/dL (0.3-1.2); Total Protein 6.7 d/dL (6.2-8.2)
[2023-03-16 03:52] LABS: Basophils % (A) 0.9 %; Eosinophils # (A) 0.37 X 10*3/uL (0.04-0.35); Eosinophils % (A) 3.3 %; HCT 47.2 % (37.2-46.3); HGB 15.1 d/dL (12.0-15.0); Lymphocytes # (A) 2.31 X 10*3/uL (0.90-5.00); Lymphocytes % (A) 20.9 %; MCH 30.4 pg (27.0-32.0); MCV 95.2 FL (80.0-97.0); Monocytes # (A) 0.78 X 10*3/uL (0.20-1.00); NRBC Per 100 WBC 0 X 10*3/uL (0.00-0.01); Neutrophils # (A) 7.45 X 10*3/uL (1.80-7.70); Neutrophils % (A) 67.4 %; Platelet Count 209 X 10*3/uL (140-440); RBC 4.96 X 10*6/uL (4.10-5.20); RDW 13.5 % (11.5-14.5); WBC 11.07 X 10*3/uL (4.50-10.00)
== END | disposition home or self-care (01) ==
LOC: LABWHC1 13:29
PROVIDERS: ATTEND Psychiatry & Neurology Neurology
DX: A69.22 Other neurologic disorders in Lyme disease (principal); A52.9 Late syphilis, unspecified; E08.610 Diabetes mellitus due to underlying condition with diabetic neuropathic arthropathy; R53.83 Other fatigue
CPT/HCPCS: 36415; 80053; 85025; 86618; 86780

== ENCOUNTER → 2023-03-15 | Outpatient (CLI) | payer MEDICAID ==
--- NOTE | 2023-03-16 08:29 | MR ---
EXAMINATION TYPE: MR cspine/tspine wo/w con DATE OF EXAM: 03/15/2023 3:26 PM CLINICAL INDICATION:Female, 58 years old with history of G35; PHH, Multiple sclerosis COMPARISON: None TECHNIQUE: Multi planar, multi sequence imaging was performed utilizing: T1-weighted, T2-weighted, a nd turbo inversion recovery imaging of the cervical and thoracic spine. MR contrast: IV Contrast: 10 cc Gadavist, None. FINDINGS: CERVICAL: Alignment: The cervical vertebral bodies have preserved heights. Alignment is within normal limits gi светлана patient positioning. Bones: Bone signal is within normal limits. No abnormal bone marrow edema on inversion recovery seque nces. No abnormal postcontrast enhancement. Cord: The spinal cord is unremarkable with regards to their signal intensity and morphology. No abnor mal postcontrast enhancement. Discs: Intervertebral disc signal is maintained. C2-C3: No significant disc pathology. The spinal canal is patent. Bilateral facet and uncovertebral joint arthropathy are present with mild bilateral neural foraminal stenosis. C3-C4: No significant disc pathology. The spinal canal is patent. Bilateral facet and uncovertebral joint arthropathy are present with mild bilateral neural foraminal stenosis. C4-C5: No significant disc pathology. The spinal canal is patent. Bilateral facet and uncovertebral joint arthropathy are present with moderate bilateral neural foraminal stenosis. C5-C6: No significant disc pathology. The spinal canal is patent. Bilateral facet and uncovertebral joint arthropathy are present with moderate to severe bilateral neural foraminal stenosis. C6-C7: No significant disc pathology. The spinal canal is patent. Bilateral facet and uncovertebral joint arthropathy are present with moderate bilateral neural foraminal stenosis. C7-T1: No significant disc pathology. The spinal canal is patent. No neural foraminal stenosis. THORACIC: Osteophyte formation of the T5-T6 left central/subarticular region which mildly impresses o n the spinal cord. Cord signal is maintained. No evidence significant spinal canal or neural foramina l stenosis. Spinal cord is within normal limits T12 vertebral body high T1/T2 signal probable vertebr al body hemangioma. Other: None. IMPRESSION: 1. No evidence for active demyelination cord signal is maintained. 2. No definitive evidence of disc herniation or significant spinal canal stenosis. No abnormal postco ntrast enhancement. 3. Mild disc degeneration with associated osteoarthritic changes.
== END | disposition home or self-care (01) ==
LOC: RADMRIMAIN 13:33
PROVIDERS: ATTEND Psychiatry & Neurology Neurology
DX: G35 Multiple sclerosis (principal); M50.30 Other cervical disc degeneration, unspecified cervical region; M47.812 Spondylosis without myelopathy or radiculopathy, cervical region
CPT/HCPCS: 72156; 72157; A9585

== ENCOUNTER 2023-10-29 08:38 | Observation (INO) | payer MEDICAID ==
--- NOTE | 2023-10-29 09:19 | ED ---
General Adult HPI - General Chief complaint: Psychiatric Symptoms Stated complaint: Mental Health Time Seen by Provider: 10/29/23 08:50 Source: patient, family, EMS, RN notes reviewed, old records reviewed Mode of arrival: ambulatory - History of Present Illness Initial comments: This is a 58-year-old female who presents to the emergency department with a sharps and with her . Patient was in a manic phase screaming and yelling and stating she was on a mermaid and laying on the grass in the front yard and pulling out all the grass. Patient was at 1 point in time hugging the officers and at another time swinging at the officers. According to the the patient decided to stop her medications which included a an antidepressant and antipsychotic. does not know exactly when she stopped her medications. Patient also stopped her regular medications for her MS and her thyroid. According to the she has no physical complaints she has not had any nausea vomiting has been no complaints of chest pain difficulty breathing spinal headache there is been no fevers or chills. Patient has just been acting more more manic and psychotic according to the since she stopped her medicines. I this episode started about 3 days ago and has been continually getting worse. - Related Data Home Medications Medication Instructions Recorded Confirmed Albuterol Sulfate [Ventolin HFA] 2 puff INHALATION RT-Q4H PRN 09/26/15 10/29/23 Mometasone/Formoterol [Dulera 200 2 puff INHALATION RT-BID 09/26/15 10/29/23 Mcg-5 Mcg Inhaler] Lansoprazole [Prevacid] 30 mg PO BID 01/24/17 10/29/23 Atorvastatin [Lipitor] 10 mg PO DAILY 12/12/18 10/29/23 Levothyroxine Sodium [Synthroid] 150 mcg PO DAILY 12/12/18 10/29/23 Montelukast Sodium [Singulair] 10 mg PO HS 01/14/20 10/29/23 Budesonide/Formoterol Fumarate 2 puff INHALATION RT-BID 10/29/23 10/29/23 [Symbicort 160-4.5 Mcg Inhaler] Ciclopirox 1 applic TOPICAL Q7D 10/29/23 10/29/23 Losartan-Hctz 50-12.5 mg [Hyzaar 1 tab PO DAILY 10/29/23 10/29/23 50-12.5] Ofatumumab [Kesimpta Pen] 20 mg SQ Q28D 10/29/23 10/29/23 Phentermine HCl [Adipex-P] 37.5 mg PO DAILY 10/29/23 10/29/23 Sertraline [Zoloft] 50 mg PO DAILY 10/29/23 10/29/23 Terbinafine [LamISIL] 250 mg PO DAILY 10/29/23 10/29/23 risperiDONE [RisperDAL] 0.25 mg PO HS 10/29/23 10/29/23 Previous Rx's Medication Instructions Recorded lamoTRIgine [LaMICtal] 50 mg PO BID 30 Days tab 01/20/20 Allergies Allergy/AdvReac Type Severity Reaction Status Date / Time amoxicillin Allergy Rash/Hives Verified 10/29/23 10:39 Review of Systems ROS Statement: Those systems with pertinent positive or pertinent negative responses have been documented in the HPI. ROS Other: All systems not noted in ROS Statement are negative. Past Medical History Past Medical History: Asthma, GERD/Reflux, Hyperlipidemia, Hypertension, Thyroid Disorder Additional Past Medical History / Comment(s): MS dx 2011 History of Any Multi-Drug Resistant Organisms: None Reported Past Surgical History: Cholecystectomy, Hernia Repair, Orthopedic Surgery Additional Past Surgical History / Comment(s): wrist surgery, polyps removed, r ight knee left knee Past Anesthesia/Blood Transfusion Reactions: No Reported Reaction Additional Past Anesthesia/Blood Transfusion Reaction / Comment(s): MOTHER TOOK LONG TIME TO AWAKEN "HAD TOO MUCH." Past Psychological History: Anxiety, Depression, Panic Disorder Smoking Status: Current every day smoker Past Alcohol Use History: Daily Past Drug Use History: Marijuana - Past Family History Father Family Medical History: Cancer Sister(s) Family Medical History: Cancer Mother Family Medical History: Cancer Additional Family Medical History / Comment(s): skin.. Breast cancer, bilat mastectomy 2021 General Exam - General Exam Comments Initial Comments: GENERAL: Patient is well-developed and well-nourished. Patient is nontoxic and well- hydrated and is in no acute distress. ENT: Neck is soft and supple. No significant lymphadenopathy is noted. Oropharynx is clear. Moist mucous membranes. Neck has full range of motion without eliciting any pain. EYES: The sclera were anicteric and conjunctiva were pink and moist. Extraocular movements were intact and pupils were equal round and reactive to light. Eyelids were unremarkable. PULMONARY: Unlabored respirations. Good breath sounds bilaterally. No audible rales rhonchi or wheezing was noted. CARDIOVASCULAR: There is a regular rate and rhythm without any murmurs gallops or rubs. ABDOMEN: Soft and nontender with normal bowel sounds. SKIN: Skin is clear with no lesions or rashes and otherwise unremarkable. NEUROLOGIC: Patient is alert and oriented x3. But she is not oriented to the situation she needed to ask her about her children and paracystic who is it is in the life she cannot remember. Cranial nerves II through XII are grossly intact. Motor and sensory are also intact. Normal speech, volume and content. Symmetrical smile. MUSCULOSKELETAL: Normal extremities with adequate strength and full range of motion. No lower extremity swelling or edema. No calf tenderness. LYMPHATICS: No significant lymphadenopathy is noted PSYCHIATRIC: Patient has not oriented to the situation had asked her if her children were still alive and if her parents are alive. Patient at one time was stating to the officers that she was a mermaid. She does admit to stopping her meds but she cannot tell you when she stopped them. Course Vital Signs 10/29/23 08:41 Temperature 97.6 F Pulse Rate 96 Respiratory 14 Rate Blood Pressure 168/89 O2 Sat by Pulse 98 Oximetry Medical Decision Making - Medical Decision Making Was pt. sent in by a medical professional or institution ([facility], [employer], urgent care, hospital, or fpc...) When possible be specific @ -No Did you speak to anyone other than the patient for history (EMS, parent, family, police, friend...)? What history was obtained from this source @ -Patient's gives most of the history as to the police. Patient is unable to give any history because she is acutely psychotic Did you review nursing and triage notes (agree or disagree)? Why? @ -I reviewed and agree with nursing and triage notes Were old charts reviewed (outside hosp., previous admission, EMS record, old EKG, old radiological studies, urgent care reports/EKG's, fpc records)? Report findings @ -No old charts were reviewed Differential Diagnosis (chest pain, altered mental status, abdominal pain women, abdominal pain men, vaginal bleeding, weakness, fever, dyspnea, syncope, headache, dizziness, GI bleed, back pain, seizure, CVA, palpatations, mental health, musculoskeletal)? @ -Differential Mental Health Depression, anxiety, bipolar, psychosis, schizophrenia, borderline personality, situational depression, adjustment disorder, behavioral disorder, brain tumor, malingering, substance abuse, encephalopathy, medication reaction, dementia, hypothyroidism, degenerative neurologic disorder, lupus.... This is not meant to be all-inclusive list EKG interpreted by me (3pts min.). @ -As above X-rays interpreted by me (1pt min.). @ -None done CT interpreted by me (1pt min.). @ -None done U/S interpreted by me (1pt. min.). @ -None done What testing was considered but not performed or refused? (CT, X-rays, U/S, labs)? Why? @ -None What meds were considered but not given or refused? Why? @ -None Did you discuss the management of the patient with other professionals (yessenia randhawa i.e. , PA, [employer], lab, RT, psych nurse, social sciences professor, drain layer, teacher, catapult and arresting gear officer, rn case management)? Give summary @ -I spoke with [facility] hospitalist they agreed to admit the patient admit the patient I consulted psychiatry Was smoking cessation discussed for >3mins.? @ -No Was critical care preformed (if so, how long)? @ -No Were there social determinants of health that impacted care today? How? (Homelessness, low income, unemployed, alcoholism, drug addiction, transport ation, low edu. Level, literacy, decrease access to med. care, fpc, rehab)? @ -No Was there de-escalation of care discussed even if they declined (Discuss DNR or withdrawal of care, Hospice)? DNR status @ -No What co-morbidities impacted this encounter? (DM, HTN, Smoking, COPD, CAD, Cancer, CVA, ARF, Chemo, Hep., AIDS, mental health diagnosis, sleep apnea, morbid obesity)? @ -None Was patient admitted / discharged? Hospital course, mention meds given and route, prescriptions, significant lab abnormalities, going to OR and other pertinent info. @ -Since patient was unable to tell us if she was taking her meds if she took too many of her meds or if she had stopped taking them and for how long I did a workup on the patient she came back with a white count of 21,000 I repeated after few hours it was at 22,000 I have no source for any infection I added a procalcitonin chest x-ray which showed no acute abnormality. I thought with the elevated white count and the unsure history the patient we better served if she went to the medicine floor and had a psychiatric consult Undiagnosed new problem with uncertain prognosis? @ -No Drug Therapy requiring intensive monitoring for toxicity (Heparin, Nitro, Insulin, Cardizem)? @ -No Were any procedures done? @ -No Diagnosis/symptom? @ -Acute psychosis Acute, or Chronic, or Acute on Chronic? @ -Acute Uncomplicated (without systemic symptoms) or Complicated (systemic symptoms)? @ -Complicated Side effects of treatment? @ -No Exacerbation, Progression, or Severe Exacerbation? @ -No Poses a threat to life or bodily function? How? (Chest pain, [place], [place], pneumonia, PE, COPD, DKA, ARF, appy, cholecystitis, CVA, Diverticulitis, Homicidal, Suicidal, threat to staff... and all critical care pts) @ -Yes this patient is completely confused and could result in her harm herself accidentally especially because she is taking her meds or not taking her meds as she just sees fit Diagnosis/symptom? @ -Leukocytosis Acute, or Chronic, or Acute on Chronic? @ -Acute Uncomplicated (without systemic symptoms) or Complicated (systemic symptoms)? @ -Complicated Side effects of treatment? @ -None Exacerbation, Progression, or Severe Exacerbation] @ -No Poses a threat to life or bodily function? @ -No - Lab Data Result diagrams: 10/29/23 12:40 10/29/23 09:20 Lab Results 10/29/23 10/29/23 10/29/23 Range/Units 09:20 09:20 12:40 WBC 21.2 H 22.1 H (3.8-10.6) k/uL RBC 5.82 H 5.85 H (3.80-5.40) m/uL Hgb 17.3 H 17.7 H (11.4-16.0) gm/dL Hct 53.1 H 54.4 H (34.0-46.0) % MCV 91.3 93.0 (80.0-100.0) fL MCH 29.8 30.3 (25.0-35.0) pg MCHC 32.7 32.6 (31.0-37.0) g/dL RDW 12.8 12.7 (11.5-15.5) % Plt Count 255 287 (150-450) k/uL MPV 10.5 10.4 Neutrophils % 86 80 % Lymphocytes % 6 12 % Monocytes % 5 5 % Eosinophils % 2 1 % Basophils % 0 1 % Neutrophils # 18.1 H 17.7 H (1.3-7.7) k/uL Lymphocytes # 1.3 2.6 (1.0-4.8) k/uL Monocytes # 1.0 1.1 H (0-1.0) k/uL Eosinophils # 0.4 0.3 (0-0.7) k/uL Basophils # 0.1 0.1 (0-0.2) k/uL Sodium 138 (137-145) mmol/L Potassium 3.6 (3.5-5.1) mmol/L Chloride 110 H (98-107) mmol/L Carbon Dioxide 15 L (22-30) mmol/L Anion Gap 13 mmol/L BUN 18 H (7-17) mg/dL Creatinine 1.18 H (0.52-1.04) mg/dL Est GFR (CKD-EPI)AfAm 59 (>60 ml/min/1.73 sqM) Est GFR (CKD-EPI)NonAf 51 (>60 ml/min/1.73 sqM) Glucose 168 H (74-99) mg/dL Calcium 9.5 (8.4-10.2) mg/dL Total Bilirubin 1.0 (0.2-1.3) mg/dL AST 22 (14-36) U/L ALT 23 (4-34) U/L Alkaline Phosphatase 123 (38-126) U/L Total Protein 7.2 (6.3-8.2) g/dL Albumin 4.7 (3.5-5.0) g/dL TSH 5.000 H (0.465-4.680) mIU/L Free T4 2.64 H (0.78-2.19) ng/dL Disposition Clinical Impression: Acute psychosis, Leukocytosis Disposition: ADMITTED IP TO THIS HOSP Referrals: None,Stated [REFERRING] - 1-2 days Time of Disposition: 13:45
[2023-10-29 09:29] LABS: Basophils # (A) 0.1 k/uL (0-0.2); Basophils % (A) 0 %; Eosinophils # (A) 0.4 k/uL (0-0.7); Eosinophils % (A) 2 %; HCT 53.1 % (34.0-46.0); HGB 17.3 gm/dL (11.4-16.0); Lymphocytes # (A) 1.3 k/uL (1.0-4.8); Lymphocytes % (A) 6 %; MCH 29.8 pg (25.0-35.0); MCHC 32.7 g/dL (31.0-37.0); MCV 91.3 fL (80.0-100.0); Mean Platelet Volume 10.5; Monocytes % (A) 5 %; Neutrophils # (A) 18.1 k/uL (1.3-7.7); Neutrophils % (A) 86 %; Platelet Count 255 k/uL (150-450); RBC 5.82 m/uL (3.80-5.40); RDW 12.8 % (11.5-15.5); WBC 21.2 k/uL (3.8-10.6)
[2023-10-29 09:41] LABS: ALT 23 U/L (4-34); AST 22 U/L (14-36); African American GFR (CKD) 59 (>60 ml/min/1.73 sqM); Albumin 4.7 g/dL (3.5-5.0); Alkaline Phosphatase 123 U/L (38-126); Anion Gap 13 mmol/L; Blood Urea Nitrogen 18 mg/dL (7-17); Calcium 9.5 mg/dL (8.4-10.2); Carbon Dioxide 15 mmol/L (22-30); Chloride 110 mmol/L (98-107); Glucose 168 mg/dL (74-99); Non-African American GFR(CKD) 51 (>60 ml/min/1.73 sqM); Potassium 3.6 mmol/L (3.5-5.1); Sodium 138 mmol/L (137-145); Total Protein 7.2 g/dL (6.3-8.2)
--- NOTE | 2023-10-29 10:30 | XR ---
EXAMINATION TYPE: XR chest 2V DATE OF EXAM: 10/29/2023 10:21 AM CLINICAL INDICATION:Female, 58 years old with history of Difficulty breathing ; [facility] COMPARISON: Chest radiographs from 10/21/2017 TECHNIQUE: XR chest 2V Frontal and lateral views of the chest. FINDINGS: Lungs/Pleura: There is flattening of the diaphragm with increased lucency of the lungs. No evidence o f pneumothorax, pleural effusion or focal consolidation. Pulmonary vascularity: Unremarkable. Heart/mediastinum: Cardiomediastinal silhouette is unremarkable. Musculoskeletal: No acute osseous pathology. IMPRESSION: 1. No acute cardiopulmonary disease process. 2. COPD changes.
[2023-10-29 11:19] LABS: T4, Free (Free Thyroxine) 2.64 ng/dL (0.78-2.19)
[2023-10-29 13:19] LABS: Basophils # (A) 0.1 k/uL (0-0.2); Basophils % (A) 1 %; Eosinophils # (A) 0.3 k/uL (0-0.7); Eosinophils % (A) 1 %; HCT 54.4 % (34.0-46.0); HGB 17.7 gm/dL (11.4-16.0); Lymphocytes # (A) 2.6 k/uL (1.0-4.8); Lymphocytes % (A) 12 %; MCH 30.3 pg (25.0-35.0); MCHC 32.6 g/dL (31.0-37.0); Mean Platelet Volume 10.4; Monocytes # (A) 1.1 k/uL (0-1.0); Monocytes % (A) 5 %; Neutrophils # (A) 17.7 k/uL (1.3-7.7); Neutrophils % (A) 80 %; Platelet Count 287 k/uL (150-450); RBC 5.85 m/uL (3.80-5.40); RDW 12.7 % (11.5-15.5); WBC 22.1 k/uL (3.8-10.6)
[2023-10-29] MEDS: LORazepam 2 MG/ML INJ IV STA (13:56)
[2023-10-29] MEDS: SODIUM CHLORIDE 0.9% 1,000 ML IV ONE (13:59)
[2023-10-29 17:38] LABS: Appearance,Urine Clear (Clear); Bilirubin,Urine 1+ (Negative); Blood,Urine Negative (Negative); Color,Urine Yellow; Glucose,Urine (UA) Negative (Negative); Ketones,Urine 2+ (Negative); Leukocyte Esterase,Urine Negative (Negative); Nitrite,Urine Negative (Negative); Protein,Urine Trace (Negative); Specific Gravity,Urine 1.025 (1.001-1.035)
[2023-10-29] MEDS: PANTOPRAZOLE 40 MG/10 ML VIAL IVP ONE (18:26)
[2023-10-29] MEDS ORDERED: ALBUTEROL HFA INHALER INHALATION PRN (20:46)
[2023-10-29] MEDS: MONTELUKAST 10 MG TAB PO SCH (21:23)
[2023-10-29] MEDS: PANTOPRAZOLE 40 MG TABLET PO SCH (21:24)
[2023-10-29] MEDS: lamoTRIgine 25 MG TAB PO SCH (21:25)
[2023-10-29] MEDS: risperiDONE 0.25 MG TAB PO SCH (21:25)
[2023-10-29] MEDS: MELATONIN 3 MG TABLET PO PRN (23:18)
[2023-10-30] MEDS: ATORVASTATIN 10 MG TAB PO SCH (08:47)
[2023-10-30] MEDS: LEVOTHYROXINE 75 MCG TAB PO SCH (08:48)
[2023-10-30] MEDS: SERTRALINE 50 MG TAB PO SCH (08:49)
[2023-10-30] MEDS: LOSARTAN-HCTZ 50-12.5 MG 1 EACH TAB PO SCH (08:49)
[2023-10-30] MEDS: SYMBICORT 160-4.5 MCG INHALER INHALATION SCH ×2 (09:24→09:28)
[2023-10-30 09:48] LABS: Basophils # (A) 0.1 k/uL (0-0.2); Basophils % (A) 1 %; Eosinophils # (A) 0.3 k/uL (0-0.7); Eosinophils % (A) 3 %; HCT 48.9 % (34.0-46.0); HGB 15.9 gm/dL (11.4-16.0); Lymphocytes # (A) 1.6 k/uL (1.0-4.8); Lymphocytes % (A) 15 %; MCH 29.8 pg (25.0-35.0); MCHC 32.5 g/dL (31.0-37.0); MCV 91.6 fL (80.0-100.0); Mean Platelet Volume 10.4; Monocytes # (A) 0.7 k/uL (0-1.0); Monocytes % (A) 7 %; Neutrophils # (A) 7.6 k/uL (1.3-7.7); Neutrophils % (A) 73 %; Platelet Count 218 k/uL (150-450); RBC 5.34 m/uL (3.80-5.40); RDW 12.9 % (11.5-15.5); WBC 10.4 k/uL (3.8-10.6)
[2023-10-30 10:01] LABS: African American GFR (CKD) 74 (>60 ml/min/1.73 sqM); Anion Gap 6 mmol/L; Blood Urea Nitrogen 15 mg/dL (7-17); Calcium 9.1 mg/dL (8.4-10.2); Carbon Dioxide 20 mmol/L (22-30); Chloride 110 mmol/L (98-107); Glucose 199 mg/dL (74-99); Non-African American GFR(CKD) 64 (>60 ml/min/1.73 sqM); Potassium 3.8 mmol/L (3.5-5.1); Sodium 136 mmol/L (137-145)
[2023-10-30] MEDS: HEPARIN SODIUM,PORCINE 5,000 UNIT/ML 1 ML VIAL SQ SCH (10:34)
--- NOTE | 2023-10-30 13:34 | P.HPIM ---
History of Present Illness H&P Date: 10/30/23 This is a 58-year-old female with medical history significant for asthma, acid reflux, hypertension, hyperlipidemia, thyroid disorder, MS diagnosed back in 2011. History of anxiety/depression/panic disorder patient is a daily smoker and alcohol drinks about 1-3 drinks per day with marijuana use occasionally. Patient comes into the hospital brought in by her due to patient being in a manic phase for the last 3 days with hallucinations and delirium apparently patient had stopped all of her medications including her antipsychotic medication. Patient follows with a psychiatrist outpatient states she had been weaning off the risperdal and finally about 1 month ago had stopped taking it. Patient endorses significant life stressers since her diagnosis of MS and not being able to work and the financial burden of her medication for MS. States back in April of 2023 was diagnosed with a new lesion and had a course of steroid infusions. States they changed her medication than as well. Patient lives her her . States for the last few days she has been up at night and working on art in her barn. Then states she was outside at night and wanting to feel the "Dewy grass and the sunrise" also talks about a discoball changing colors based on her husbands mood. called police and patient brought in for psychiatric evaluation. Patient denies chest pain, denies shortness of breath. Denies any nausea vomiting or diarrhea. She is alert x 3. Denies suicidal or homicidal ideations. Had a chest x-ray completed on admission which reveals no acute cardiopulmonary disease process there is underlying COPD. White blood cell count 21.2, hemoglobin 7.3, BUN of 18, creatinine of 1.18, glucose of 168. Her TSH is significantly elevated at 5000 with a free T4 of 2.64 we will resume patient's thyroid medication and repeat these blood work. Her urinalysis is negative for infection at this time. She was admitted to the hospital with a consult placed to psychiatry. REVIEW OF SYSTEMS: CONSTITUTIONAL: No fever, no malaise, no fatigue. HEENT: No recent visual problems or hearing problems. Denied any sore throat. CARDIOVASCULAR: No chest pain, orthopnea, PND, no palpitations, no syncope. PULMONARY: No shortness of breath, no cough, no hemoptysis. GASTROINTESTINAL: No diarrhea, no nausea, no vomiting, no abdominal pain. NEUROLOGICAL: No headaches, no weakness, no numbness. HEMATOLOGICAL: Denies any bleeding or petechiae. GENITOURINARY: Denies any burning micturition, frequency, or urgency. MUSCULOSKELETAL/RHEUMATOLOGICAL: Denies any joint pain, swelling, or any muscle pain. ENDOCRINE: Denies any polyuria or polydipsia. The rest of the 14-point review of systems is negative. PHYSICAL EXAMINATION: GENERAL: The patient is alert and oriented x3, not in any acute distress. Well developed, well nourished. HEENT: Pupils are round and equally reacting to light. EOMI. No scleral icterus. No conjunctival pallor. Normocephalic, atraumatic. No pharyngeal erythema. No thyromegaly. CARDIOVASCULAR: S1 and S2 present. No murmurs, rubs, or gallops. PULMONARY: Chest is clear to auscultation, no wheezing or crackles. ABDOMEN: Soft, nontender, nondistended, normoactive bowel sounds. No palpable organomegaly. MUSCULOSKELETAL: No joint swelling or deformity. EXTREMITIES: No cyanosis, clubbing, or pedal edema. NEUROLOGICAL: Gross neurological examination did not reveal any focal deficits. SKIN: No rashes. Assessment and plan History of Bipolar disorder patient is currently having episode of amarilis with psychotic features patient has been resumed on her Risperdal and psychiatry was consulted for further evaluation Significant leukocytosis this could be reactive however will rule out current infection her urinalysis is spacious for a UTI, patient is not having any fever. Procalcitonin level was checked and pending Underlying COPD patient is continued on Symbicort History of asthma with no acute exacerbation continues on albuterol inhaler Hyperglycemia check a hemoglobin A1c Gastroesophageal reflux disease maintained on Protonix which has been resumed History of hypertension resumed on Hyzaar we will monitor the renal function History of hyperlipidemia maintained on statin therapy which has been resumed History of hypothyroidism with significantly elevated TSH due to patient stopping her medications we will resume her Synthroid at current dose and repeat her thyroid study. History of MS diagnosed in 2011 maintained on Kesimpta monthly. Anxiety/depression/panic disorder continues on sertraline which has been resumed Substance abuse with alcohol use disorder, cannabis use and nicotine dependence GI prophylaxis DVT prophylaxis Patient has been resumed back on her home medications. Would recommend to repeat thyroid studies 2 to 3 days. Patients white blood cell count has normalized. Her procalcitonin level is normal. Medically patient is cleared for discharge to mental health unit pending psychiatric evaluation and recommendations. Patient will need to follow up with [facility] on discharge. Greater than 35 minutes has been spent with this patient on discussion and coordination of care at the bedside. 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 The impression and plan of care has been dictated by Emily Dowell, Nurse Practitioner as directed. Dr. Donte MD I have performed a history and physical examination and medical decision making of this patient, discussed the same with the dictator, and agree with the dic tators assessment and plan as written, documented as a scribe. Based on total visit time, I have performed more than 50% of this visit. Past Medical History Past Medical History: Asthma, GERD/Reflux, Hyperlipidemia, Hypertension, Thyroid Disorder Additional Past Medical History / Comment(s): MS dx 2011 History of Any Multi-Drug Resistant Organisms: None Reported Past Surgical History: Cholecystectomy, Hernia Repair, Orthopedic Surgery Additional Past Surgical History / Comment(s): wrist surgery, polyps removed, right knee left knee Past Anesthesia/Blood Transfusion Reactions: No Reported Reaction Additional Past Anesthesia/Blood Transfusion Reaction / Comment(s): MOTHER TOOK LONG TIME TO AWAKEN "HAD TOO MUCH." Past Psychological History: Anxiety, Depression, Panic Disorder Smoking Status: Current every day smoker Past Alcohol Use History: Daily Past Drug Use History: Marijuana - Past Family History Father Family Medical History: Cancer Sister(s) Family Medical History: Cancer Mother Family Medical History: Cancer Additional Family Medical History / Comment(s): skin.. Breast cancer, bilat mastectomy 2021 Medications and Allergies Home Medications Medication Instructions Recorded Confirmed Type Albuterol Sulfate [Ventolin HFA] 2 puff INHALATION RT-Q4H PRN 09/26/15 10/29/23 History Mometasone/Formoterol [Dulera 200 2 puff INHALATION RT-BID 09/26/15 10/29/23 History Mcg-5 Mcg Inhaler] Lansoprazole [Prevacid] 30 mg PO BID 01/24/17 10/29/23 History Atorvastatin [Lipitor] 10 mg PO DAILY 12/12/18 10/29/23 History Levothyroxine Sodium [Synthroid] 150 mcg PO DAILY 12/12/18 10/29/23 History Montelukast Sodium [Singulair] 10 mg PO HS 01/14/20 10/29/23 History lamoTRIgine [LaMICtal] 50 mg PO BID 30 Days tab 01/20/20 10/29/23 Rx Budesonide/Formoterol Fumarate 2 puff INHALATION RT-BID 10/29/23 10/29/23 History [Symbicort 160-4.5 Mcg Inhaler] Ciclopirox 1 applic TOPICAL Q7D 10/29/23 10/29/23 History Losartan-Hctz 50-12.5 mg [Hyzaar 1 tab PO DAILY 10/29/23 10/29/23 History 50-12.5] Ofatumumab [Kesimpta Pen] 20 mg SQ Q28D 10/29/23 10/29/23 History Phentermine HCl [Adipex-P] 37.5 mg PO DAILY 10/29/23 10/29/23 History Sertraline [Zoloft] 50 mg PO DAILY 10/29/23 10/29/23 History Terbinafine [LamISIL] 250 mg PO DAILY 10/29/23 10/29/23 History risperiDONE [RisperDAL] 0.25 mg PO HS 10/29/23 10/29/23 History Allergies Allergy/AdvReac Type Severity Reaction Status Date / Time amoxicillin Allergy Rash/Hives Verified 10/29/23 10:39 Physical Exam Vitals: Vital Signs Temp Pulse Pulse Resp BP BP Pulse Ox 10/30/23 07:00 97.8 F 76 16 129/78 97 10/30/23 01:56 98.0 F 95 20 155/80 99 10/29/23 20:00 97.6 F 95 18 122/74 98 10/29/23 17:36 98.2 F 92 16 120/80 99 Intake and Output 10/29/23 10/30/23 10/30/23 22:59 06:59 14:59 Other: # Voids 0 1 Weight 90.718 kg Results CBC & Chem 7: 10/30/23 09:34 10/30/23 09:31 Labs: Abnormal Lab Results - Last 24 Hours (Table) 10/29/23 10/29/23 10/29/23 Range/Units 09:20 09:20 12:40 WBC 21.2 H 22.1 H (3.8-10.6) k/uL RBC 5.82 H 5.85 H (3.80-5.40) m/uL Hgb 17.3 H 17.7 H (11.4-16.0) gm/dL Hct 53.1 H 54.4 H (34.0-46.0) % Neutrophils # 18.1 H 17.7 H (1.3-7.7) k/uL Monocytes # 1.1 H (0-1.0) k/uL Chloride 110 H (98-107) mmol/L Carbon Dioxide 15 L (22-30) mmol/L BUN 18 H (7-17) mg/dL Creatinine 1.18 H (0.52-1.04) mg/dL Glucose 168 H (74-99) mg/dL TSH 5.000 H (0.465-4.680) mIU/L Free T4 2.64 H (0.78-2.19) ng/dL Urine Protein (Negative) Urine Ketones (Negative) Urine Bilirubin (Negative) 10/29/23 Range/Units 17:26 WBC (3.8-10.6) k/uL RBC (3.80-5.40) m/uL Hgb (11.4-16.0) gm/dL Hct (34.0-46.0) % Neutrophils # (1.3-7.7) k/uL Monocytes # (0-1.0) k/uL Chloride (98-107) mmol/L Carbon Dioxide (22-30) mmol/L BUN (7-17) mg/dL Creatinine (0.52-1.04) mg/dL Glucose (74-99) mg/dL TSH (0.465-4.680) mIU/L Free T4 (0.78-2.19) ng/dL Urine Protein Trace H (Negative) Urine Ketones 2+ H (Negative) Urine Bilirubin 1+ H (Negative) Assessment and Plan Time with Patient: Greater than 30
--- NOTE | 2023-10-30 13:44 | P.DS ---
Providers Date of admission: 10/29/23 13:48 Attending physician: Don Jackman MD Consults: 10/29/23 13:48 Consult Physician Urgent Consulting Provider: Bryant Hylton Reason/Comments: Acute psychosis Do you want consulting provider notified?: Already Contacted Primary care physician: Meghana Houston Hospital Course: Final Diagnosis History of Bipolar disorder patient is currently having episode of amarilis with psychotic features patient has been resumed on her Risperdal and psychiatry was consulted for further evaluation Significant leukocytosis this could be reactive however will rule out current infection her urinalysis is spacious for a UTI, patient is not having any fever. Procalcitonin level normal and WBC now normal. Underlying COPD patient is continued on Symbicort History of asthma with no acute exacerbation continues on albuterol inhaler Hyperglycemia check a hemoglobin A1c Gastroesophageal reflux disease maintained on Protonix which has been resumed History of hypertension resumed on Hyzaar we will monitor the renal function History of hyperlipidemia maintained on statin therapy which has been resumed History of hypothyroidism with significantly elevated TSH due to patient stopping her medications we will resume her Synthroid at current dose and repeat her thyroid study. History of MS diagnosed in 2011 maintained on Kesimpta monthly. Anxiety/depression/panic disorder continues on sertraline which has been resumed Substance abuse with alcohol use disorder, cannabis use and nicotine dependence Discharge Disposition Stable for mental health treatment still needs psychiatric evaluation and recommendations. Hospital Course This is a 58-year-old female with medical history significant for asthma, acid reflux, hypertension, hyperlipidemia, thyroid disorder, MS diagnosed back in 2011. History of anxiety/depression/panic disorder patient is a daily smoker and alcohol drinks about 1-3 drinks per day with marijuana use occasionally. Patient comes into the hospital brought in by her due to patient being in a manic phase for the last 3 days with hallucinations and delirium apparently patient had stopped all of her medications including her antipsychotic medication. Patient follows with a psychiatrist outpatient states she had been weaning off the risperdal and finally about 1 month ago had stopped taking it. Patient endorses significant life stressers since her diagnosis of MS and not being able to work and the financial burden of her medication for MS. States back in April of 2023 was diagnosed with a new lesion and had a course of st eroid infusions. States they changed her medication than as well. Patient lives her her . States for the last few days she has been up at night and working on art in her barn. Then states she was outside at night and wanting to feel the "Dewy grass and the sunrise" also talks about a discoball changing colors based on her husbands mood. called police and patient brought in for psychiatric evaluation. Patient denies chest pain, denies shortness of breath. Denies any nausea vomiting or diarrhea. She is alert x 3. Denies suicidal or homicidal ideations. Had a chest x-ray completed on admission which reveals no acute cardiopulmonary disease process there is underlying COPD. White blood cell count 21.2, hemoglobin 7.3, BUN of 18, creatinine of 1.18, glucose of 168. Her TSH is significantly elevated at 5000 with a free T4 of 2.64 we will resume patient's thyroid medication and repeat these blood work. Her urinalysis is negative for infection at this time. She was admitted to the hospital with a consult placed to psychiatry. Psychiatry consultation is still pending however patient is having psychosis and delusions and will most likely benefit from IP mental health evaluation and if that is the case she is medically stable for discharge to IP psych unit. Her white blood cell count has normalized and her procalcitonin is negative no underlying infectious process. Please see medication reconciliation for a list of current medications. Thank you for allowing us to participate in the care of this patient. The impression and plan of care has been dictated by Emily Dowell, Nurse Practitioner as directed. Dr. Donte MD I have performed a history and physical examination and medical decision making of this patient, discussed the same with the dictator, and agree with the dictators assessment and plan as written, documented as a scribe. Based on total visit time, I have performed more than 50% of this visit. Plan - Discharge Summary New Discharge Prescriptions: Continue Mometasone/Formoterol [Dulera 200 Mcg-5 Mcg Inhaler] 2 puff INHALATION RT-BID Albuterol Sulfate [Ventolin HFA] 2 puff INHALATION RT-Q4H PRN PRN Reason: Shortness Of Breath Lansoprazole [Prevacid] 30 mg PO BID Atorvastatin [Lipitor] 10 mg PO DAILY Levothyroxine Sodium [Synthroid] 150 mcg PO DAILY Montelukast Sodium [Singulair] 10 mg PO HS lamoTRIgine [LaMICtal] 50 mg PO BID 30 Days tab risperiDONE [RisperDAL] 0.25 mg PO HS Terbinafine [LamISIL] 250 mg PO DAILY Ciclopirox 1 applic TOPICAL Q7D Budesonide/Formoterol Fumarate [Symbicort 160-4.5 Mcg Inhaler] 2 puff INHALATION RT-BID Losartan-Hctz 50-12.5 mg [Hyzaar 50-12.5] 1 tab PO DAILY Phentermine HCl [Adipex-P] 37.5 mg PO DAILY Sertraline [Zoloft] 50 mg PO DAILY No Action Ofatumumab [Kesimpta Pen] 20 mg SQ Q28D Discharge Medication List Albuterol Sulfate [Ventolin HFA] 2 puff INHALATION RT-Q4H PRN 09/26/15 [History] Mometasone/Formoterol [Dulera 200 Mcg-5 Mcg Inhaler] 2 puff INHALATION RT-BID 09/26/15 [History] Lansoprazole [Prevacid] 30 mg PO BID 01/24/17 [History] Atorvastatin [Lipitor] 10 mg PO DAILY 12/12/18 [History] Levothyroxine Sodium [Synthroid] 150 mcg PO DAILY 12/12/18 [History] Montelukast Sodium [Singulair] 10 mg PO HS 01/14/20 [History] lamoTRIgine [LaMICtal] 50 mg PO BID 30 Days tab 01/20/20 [Rx] Budesonide/Formoterol Fumarate [Symbicort 160-4.5 Mcg Inhaler] 2 puff INHALATION RT-BID 10/29/23 [History] Ciclopirox 1 applic TOPICAL Q7D 10/29/23 [History] Losartan-Hctz 50-12.5 mg [Hyzaar 50-12.5] 1 tab PO DAILY 10/29/23 [History] Ofatumumab [Kesimpta Pen] 20 mg SQ Q28D 10/29/23 [History] Phentermine HCl [Adipex-P] 37.5 mg PO DAILY 10/29/23 [History] Sertraline [Zoloft] 50 mg PO DAILY 10/29/23 [History] Terbinafine [LamISIL] 250 mg PO DAILY 10/29/23 [History] risperiDONE [RisperDAL] 0.25 mg PO HS 10/29/23 [History] Follow up Appointment(s)/Referral(s): None,Stated [REFERRING] - 1-2 days Activity/Diet/Wound Care/Special Instructions: Patient needs inpatient psychiatric evaluation and we are currently pending psychiatric evaluation. Patient is medically stable for discharge to IP psych. Discharge Disposition: TRANSFER TO PSYCH HOSP/UNIT
--- NOTE | 2023-10-30 20:04 | P.CN ---
Psychiatric Consult - . Consult date: 10/30/23 Consult:: 10/30/23 13:35 IDENTIFYING DATA: This patient is a 58-year-old female, currently is collect Social Security disability. REASON FOR REFERRAL: Psychiatry was consulted for acute psychosis HISTORY OF PRESENT ILLNESS: The patient presented to the hospital initially on 10/28 with her , patient patient apparently patient has been off her medications recently for the past several days, has been yelling screaming and reported in the history that she was stating that she was a mermaid. Patient apparently has been labile bizarre and stopped taking her medications 3 days ago. White blood count was elevated at 21.2 on admission however has returned to normal and ANC was elevated as well. Patient was seen at the bedside, was suspicious of scenario writer direct and focused on discharge. She had a flight of ideas, was having racing thoughts. She was difficult to interrupt, hyperverbal. She made several statements about her MS and that her mind has been racing and that she is taking a "natural" approach and trying to get off her medications, she is displaying poor insight and judgment. She is claiming that "nobody has patients to listen to me" was fairly demanding. She was speaking about her "creative side" when she is feeling like this. She claims that her sleep has been poor appetite has been fair. At this time patient denies any suicidal or homical ideations, intent or plan. Patient denies any auditory, visual hallucinations and denies any paranoia or delusions. Patients admits to using marijuana claims that she was smoking about 4 joints a day, claims that she was drinking alcohol a couple of drinks a day, denies any current withdrawal symptoms or any history of severe withdrawals, denies any other recreational drug use or cigarettes. PAST PSYCHIATRIC HISTORY: Patient has a a history of bipolar disorder. Patient has been off her medications however was previously on Zoloft Lamictal and Risperdal. Claims that she was last psychiatrically hospitalized at [facility] and a couple of times on the mental health unit. Patient denies any psychiatric outpatient follow-up. Patient denies any history of suicide attempts in the past. PAST MEDICAL HISTORY:Past Medical History: Asthma, GERD/Reflux, Hyperlipidemia, Hypertension, Thyroid Disorder Additional Past Medical History / Comment(s): MS dx 2011 History of Any Multi-Drug Resistant Organisms: None Reported Past Surgical History: Cholecystectomy, Hernia Repair, Orthopedic Surgery Additional Past Surgical History / Comment(s): wrist surgery, polyps removed, right knee left knee Past Anesthesia/Blood Transfusion Reactions: No Reported Reaction Additional Past Anesthesia/Blood Transfusion Reaction / Comment(s): MOTHER TOOK LONG TIME TO AWAKEN "HAD TOO MUCH." Past Psychological History: Anxiety, Depression, Panic Disorder Smoking Status: Current every day smoker Past Alcohol Use History: Daily Past Drug Use History: Marijuana ALLERGIES: as per EMR. CHEMICAL DEPENDENCY HISTORY: as per HPI. FAMILY PSYCHIATRIC/SUBSTANCE USE HISTORY: She claims that several people in her family had some form of mental illness. SOCIAL HISTORY: Patient was born and raised in [place] and also in [place]. He claims that he completed high school and did some college, she claims that she worked several jobs in the past. Currently collects [employer]. She is . He denies any legal history. MENTAL STATUS EXAM: General Appearance: Patient appears to be mildly overweight, stated age is alert, difficult to redirect, intrusive and can be aggressive. Patient appears to have fair hygiene and grooming wearing hospital gown with fair eye contact. Behavior: [Patient is intrusive and aggressive, difficult to redirect. Speech: Patient has hyperverbal, Mood/Affect: Patient reports their mood is "wonderful", affect is congruent and labile Suicidality/Homicidality: Patient denies having any suicidal or homicidal ideation intent or plan. Perceptions: Patient denies any visual hallucinations and denies any auditory hallucinations Though content/process: Patient is tangential/illogical, flight of ideas, racing thoughts. Memory and concentration: AOX3, grossly intact for the purposes of this session. Can spell "WORLD" backwards Judgment and insight: Poor/impulsive IMPRESSIONS: Bipolar disorder, current episode amarilis without psychotic features Cannabis use disorder Alcohol use disorder mild Medication nonadherence PLAN: -At this time patient DOES meet criteria for inpatient psychiatric admission. -Would recommend the following medication changes/additions: At this time we will hold off on medications until patient is transferred to the psychiatric unit. -Continue 1:1 sitter for safety until patient is safely transferred to the mental health unit. -Cannot leave AMA at this time. Patient will need a petition and certification if attempting to leave AMA. -When medically stable, patient is eligible for transfer to a psych bed when available. -Communicated plan to patient's nurse and EPS nurse -Psychiatry will sign off at this time -Please contact with any questions. 10/30/23 19:56
[2023-10-31 09:00] LABS: Basophils # (A) 0.07 X 10*3/uL (0.00-0.10); Basophils % (A) 0.8 %; Eosinophils # (A) 0.29 X 10*3/uL (0.04-0.35); Eosinophils % (A) 3.5 %; HCT 43.1 % (37.2-46.3); HGB 13.9 g/dL (12.0-15.0); Lymphocytes # (A) 1.76 X 10*3/uL (0.90-5.00); Lymphocytes % (A) 21.2 %; MCH 29.9 pg (27.0-32.0); MCHC 32.3 g/dL (32.0-37.0); MCV 92.7 FL (80.0-97.0); Mean Platelet Volume 13.4 FL (9.5-12.2); Monocytes # (A) 1.02 X 10*3/uL (0.20-1.00); Monocytes % (A) 12.3 %; NRBC Per 100 WBC 0 X 10*3/uL (0.00-0.01); Neutrophils # (A) 5.14 X 10*3/uL (1.80-7.70); Neutrophils % (A) 61.7 %; Platelet Count 172 X 10*3/uL (140-440); RBC 4.65 X 10*6/uL (4.10-5.20); RDW 12.9 % (11.5-14.5); WBC 8.32 X 10*3/uL (4.50-10.00)
[2023-10-31 09:06] LABS: Blood Urea Nitrogen 13.2 mg/dL (9.0-27.0); Calcium 8.7 mg/dL (8.7-10.3); Carbon Dioxide 22.4 mmol/L (21.6-31.8); Chloride 108 mmol/L (96-109); Glucose 133 mg/dL (70-110); Potassium 3.5 mmol/L (3.5-5.5); Sodium 141 mmol/L (135-145)
--- NOTE | 2023-10-31 13:29 | P.PN ---
Subjective Progress Note Date: 10/31/23 This is a 58-year-old female with medical history significant for asthma, acid reflux, hypertension, hyperlipidemia, thyroid disorder, MS diagnosed back in 2011. History of anxiety/depression/panic disorder patient is a daily smoker and alcohol drinks about 1-3 drinks per day with marijuana use occasionally. Patient comes into the hospital brought in by her due to patient being in a manic phase for the last 3 days with hallucinations and delirium apparently patient had stopped all of her medications including her antipsychotic medication. Patient follows with a psychiatrist outpatient states she had been weaning off the risperdal and finally about 1 month ago had stopped taking it. Patient endorses significant life stressers since her diagnosis of MS and not being able to work and the financial burden of her medication for MS. States back in April of 2023 was diagnosed with a new lesion and had a course of steroid infusions. States they changed her medication than as well. Patient lives her her . States for the last few days she has been up at night and working on art in her barn. Then states she was outside at night and wanting to feel the "Dewy grass and the sunrise" also talks about a discoball changing colors based on her husbands mood. called police and patient brought in for psychiatric evaluation. Patient denies chest pain, denies shortness of breath. Denies any nausea vomiting or diarrhea. She is alert x 3. Denies suicidal or homicidal ideations. Had a chest x-ray completed on admission which reveals no acute cardiopulmonary disease process there is underlying COPD. White blood cell count 21.2, hemoglobin 7.3, BUN of 18, creatinine of 1.18, glucose of 168. Her TSH is significantly elevated at 5000 with a free T4 of 2.64 we will resume patient's thyroid medication and repeat these blood work. Her urinalysis is negative for infection at this time. She was admitted to the hospital with a consult placed to psychiatry. 10/31/2023 Patient is evaluated today in follow up. She is sitting up in bed having no acute complaints. She is hyperverbal today and difficult to carry a conversation with. She states she does not want to go for inpatient treatment. She wants to go swimming her pool and have a psychiatrist either come to her house or go for outpatient treatment. States she was seeing Dr. Jacoby Atkinson at [facility] in [facility] per the patient the office has closed down. Patient is on a petition and has been certed. Review of Systems Constitutional: Denied any fatigue denied any fever. Cardio vascular: denied any chest pain, palpitations Gastrointestinal: denied any nausea, vomiting, diarrhea Pulmonary: Denied any shortness of breath cough Neurologic denied any new focal deficits All inpatient medications were reviewed and appropriate changes in these medications as dictated in the interval history and assessment and plan. PHYSICAL EXAMINATION: GENERAL: The patient is alert and oriented x3, not in any acute distress. Well developed, well nourished. HEENT: Pupils are round and equally reacting to light. EOMI. No scleral icterus. No conjunctival pallor. Normocephalic, atraumatic. No pharyngeal erythema. No thyromegaly. CARDIOVASCULAR: S1 and S2 present. No murmurs, rubs, or gallops. PULMONARY: Chest is clear to auscultation, no wheezing or crackles. ABDOMEN: Soft, nontender, nondistended, normoactive bowel sounds. No palpable organomegaly. MUSCULOSKELETAL: No joint swelling or deformity. EXTREMITIES: No cyanosis, clubbing, or pedal edema. NEUROLOGICAL: Gross neurological examination did not reveal any focal deficits. SKIN: No rashes. Assessment and plan History of Bipolar disorder patient is currently having episode of amarilis with psychotic features patient has been resumed on her Risperdal and psychiatry consulted and recommending IP mental health evaluation and treatment. Significant leukocytosis this could be reactive infection ruled out and white blood cell count has normalized, lactic acid has normalized. Patient is not having any fever. Underlying COPD patient is continued on Symbicort History of asthma with no acute exacerbation continues on albuterol inhaler Hyperglycemia check a hemoglobin A1c Gastroesophageal reflux disease maintained on Protonix which has been resumed History of hypertension resumed on Hyzaar we will monitor the renal function History of hyperlipidemia maintained on statin therapy which has been resumed History of hypothyroidism with significantly elevated TSH due to patient stopping her medications we will resume her Synthroid at current dose and repeat her thyroid study. History of MS diagnosed in 2011 maintained on Kesimpta monthly. Anxiety/depression/panic disorder continues on sertraline which has been resumed Substance abuse with alcohol use disorder, cannabis use and nicotine dependence History of sleep apnea with CPAP use patient does have her CPAP at the bedside. GI prophylaxis DVT prophylaxis Patient medically stable for discharge to an inpatient mental health unit when there is 1 available for her due to her wearing a CPAP she will need to be transferred out of the hospital for mental health evaluation and treatment. The impression and plan of care has been dictated by Emily Dowell, Nurse Practitioner as directed. Dr. Donte MD I have performed a history and physical examination and medical decision making of this patient, discussed the same with the dictator, and agree with the dictators assessment and plan as written, documented as a scribe. Based on total visit time, I have performed more than 50% of this visit. Objective - Vital Signs Vital signs: Vital Signs Temp 98.3 F 10/31/23 07:00 Pulse 94 10/31/23 07:00 Resp 16 10/31/23 07:00 BP 154/94 10/31/23 07:00 Pulse Ox 97 10/31/23 07:00 FiO2 Intake & Output 10/30/23 10/31/23 10/31/23 18:59 06:59 18:59 Other: # Voids 3 2 - Labs CBC & Chem 7: 10/31/23 04:28 10/31/23 04:28 Labs: Abnormal Lab Results - Last 24 Hours (Table) 10/30/23 10/31/23 10/31/23 Range/Units 09:34 04:28 04:28 MPV 13.4 H (9.5-12.2) FL Monocytes # 1.02 H (0.20-1.00) X 10*3/uL Glucose 133 H (70-110) mg/dL Hemoglobin A1c 6.2 H (<=6.0) % Assessment and Plan Time with Patient: Less than 30
[2023-10-31 14:32] LABS: Amphetamine Screen,Urine Detected (NotDetected); Barbiturate Screen,Urine Not Detected (NotDetected); Benzodiazepines Screen,Urine Detected (NotDetected); Cocaine Screen,Urine Not Detected (NotDetected); Methadone Screen, Urine Not Detected (NotDetected); Opiate Screen,Urine Not Detected (NotDetected); Oxycodone Screen, Urine Not Detected (NotDetected); Phencyclidine Screen,Urine Not Detected (NotDetected); Tricyclic Antidepressant,Urine Not Detected (NotDetected); Urn Cannabinoid Scrn Detected (NotDetected)
[2023-10-31 19:57] VITALS: BP 126/65; PULSE 85; RESP 17; TEMP 98
== END 2023-10-31 20:45 ==
LOC: EC 08:38 → 6NMEDSUR 13:48
PROVIDERS: ADMIT Internal Medicine; ATTEND Internal Medicine
DX: F31.9 Bipolar disorder, unspecified (principal); D72.829 Elevated white blood cell count, unspecified; K21.9 Gastro-esophageal reflux disease without esophagitis; E78.5 Hyperlipidemia, unspecified; I10 Essential (primary) hypertension; J44.9 Chronic obstructive pulmonary disease, unspecified; F41.9 Anxiety disorder, unspecified; R73.9 Hyperglycemia, unspecified; E03.9 Hypothyroidism, unspecified; G35 Multiple sclerosis; G47.30 Sleep apnea, unspecified; F10.20 Alcohol dependence, uncomplicated; F12.90 Cannabis use, unspecified, uncomplicated; F17.200 Nicotine dependence, unspecified, uncomplicated; Z11.52 Encounter for screening for COVID-19; Z79.899 Other long term (current) drug therapy; Z79.51 Long term (current) use of inhaled steroids; Z79.890 Hormone replacement therapy; Z88.0 Allergy status to penicillin
CPT/HCPCS: 96372 ×2; 82075; 96374; 96375; 99285; 36415; 94640 ×2; 84439; 80053; 80048 ×2; 84443; 85025 ×3; 81003; 81025; 80306; 83036; 84145; 87635; 71046; G0378 ×3; J2060; J1644 ×2; C9113

== ENCOUNTER → 2024-04-09 | Outpatient (CLI) | payer MEDICAID ==
--- NOTE | 2024-04-09 12:44 | MR ---
EXAMINATION TYPE: MR brain wo/w con DATE OF EXAM: 04/09/2024 11:07 AM COMPARISON: 06/02/2022. CLINICAL INDICATION: Female, 59 years old with history of G35 MS; , MS, F/U comparison to prior MR . TECHNIQUE: Multi planar, multi sequence imaging was performed through the brain including: T1, T2, In version recovery, susceptibility weighted imaging and gradient echo imaging and Diffusion weighted im aging. The patient was then given intravenous contrast and multi planar, T1 fat-saturation images wer e obtained. IV Contrast: 10 mL Gadobutrol FINDINGS: High T2 signal bilaterally left greater than right which are not significantly changed give n differences in slice selection. No evidence for active demyelination. The gottlieb-white junctions, светлана tricular system, basal cisterns appear unremarkable. Diffusion-weighted imaging shows no evidence of restricted diffusion to suggest acute/subacute infarct. Intracranial arterial flow voids are maintai rich. Midline structures show no abnormality. The susceptibility weighted images do not reveal any natty dence for micro-hemorrhage. After administration of gadolinium, no abnormal enhancement is seen. The bone marrow signal is within normal limits. Paranasal sinuses and mastoid air cells: Mild paranasal sinus mucosal thickening most pronounced at t ear ethmoid air cells. Scattered high signal at fluid within the mastoid air cells. Visualized orbits: Orbital contents are intact. IMPRESSION: White matter changes which are not significantly changed from prior. No evidence for active demyelina tion. No abnormal postcontrast enhancement. [facility], , 04/09/2024 12:41 PM
== END | disposition home or self-care (01) ==
LOC: RADMRIMAIN 10:08
PROVIDERS: ATTEND Psychiatry & Neurology Neurology
DX: G35 Multiple sclerosis (principal); R90.82 White matter disease, unspecified
CPT/HCPCS: 70553; A9585

== ENCOUNTER → 2024-04-23 | Outpatient (CLI) | payer MEDICAID ==
--- NOTE | 2024-04-24 21:56 | MR ---
EXAMINATION TYPE: MR cspine/tspine wo/w con DATE OF EXAM: 04/23/2024 10:15 PM COMPARISON: 03/15/2023. CLINICAL INDICATION: Female, 59 years old with history of G35, MS, Numbness hands and feet, Weakness in legs TECHNIQUE: Multi planar, multi sequence imaging was performed utilizing: T1-weighted, T2-weighted, a nd turbo inversion recovery imaging of the cervical and thoracic spine. IV Contrast: 10 mL Gadobutrol (None, if empty) FINDINGS: CERVICAL: Alignment: The cervical vertebral bodies have preserved heights. Alignment is within normal limits gi светлана patient positioning. Bones: Bone signal is within normal limits. No abnormal bone marrow edema on inversion recovery seque nces. No abnormal postcontrast enhancement. Cord: The spinal cord is unremarkable with regards to their signal intensity and morphology. No abnor mal postcontrast enhancement. Discs: Intervertebral disc signal is maintained. C2-C3: No significant disc pathology. The spinal canal is patent. Bilateral facet and uncovertebral joint arthropathy are present with mild bilateral neural foraminal stenosis. C3-C4: No significant disc pathology. The spinal canal is patent. Bilateral facet and uncovertebral joint arthropathy are present with mild bilateral neural foraminal stenosis. C4-C5: No significant disc pathology. The spinal canal is patent. Bilateral facet and uncovertebral joint arthropathy are present with moderate bilateral neural foraminal stenosis. C5-C6: No significant disc pathology. The spinal canal is patent. Bilateral facet and uncovertebral joint arthropathy are present with moderate to severe bilateral neural foraminal stenosis. C6-C7: No significant disc pathology. The spinal canal is patent. Bilateral facet and uncovertebral joint arthropathy are present with moderate bilateral neural foraminal stenosis. C7-T1: No significant disc pathology. The spinal canal is patent. No neural foraminal stenosis. THORACIC: Similar osteophyte formation of the T5-T6 left central/subarticular region which mildly imp resses on the spinal cord. Cord signal is maintained. No evidence significant spinal canal or neural foraminal stenosis. Spinal cord is within normal limits T12 vertebral body high T1/T2 signal probable vertebral body hemangioma. Other: None. IMPRESSION: 1. Similar exam, No evidence for active demyelination, the cord signal is maintained. No abnormal pos tcontrast enhancement. 2. No definitive evidence of disc herniation or significant spinal canal stenosis. 3. Mild disc degeneration with associated osteoarthritic changes. [facility], , 04/24/2024 9:54 PM
== END | disposition home or self-care (01) ==
LOC: RADMRIMAIN 21:00
PROVIDERS: ATTEND Psychiatry & Neurology Neurology
DX: G35 Multiple sclerosis (principal)
CPT/HCPCS: 72156; 72157; A9585

== ENCOUNTER → 2024-10-01 | Outpatient (CLI) | payer MEDICAID ==
--- NOTE | 2024-10-02 07:26 | MM ---
Reason for Exam: Screening (asymptomatic). Last mammogram was performed 2 year(s) and 5 month(s) ago. Patient History: Menarche at age 12. First Full-Term at age 24. Postmenopausal. Patient has history of breast feeding. Hormonal Contraceptives, starting at age 43 for 4 years, 4 months. 05/20/2022, Benign MG stereo VAD BX LT on the left side. Sister had breast cancer, age 41. Mother had breast cancer, age 75. Risk Values: Lorena 5 year model risk: 6.6%. NCI Lifetime model risk: 31.2%. Prior Study Comparison: 04/06/2018 Bilateral Screening Mammogram, [facility]. 05/11/2022 Bilateral MG 3D screening mammo w/cad, [facility]. 05/18/2022 Left MG 3D work up w/cad LT, [facility]. Tissue Density: There are scattered areas of fibroglandular density. Findings: Analyzed By CAD. Mammotome biopsy clip in the left breast is redemonstrated. Benign-appearing bilateral axillary lymph nodes are again seen. There is no suspicious group of microcalcifications or new suspicious mass in either breast. Overall Assessment: Benign, BI-RAD 2 Management: Screening Mammogram of both breasts in 1 year. . Patient should continue monthly self-breast exams. A clinical breast exam by your physician is recommended on an annual basis. This exam should not preclude additional follow-up of suspicious palpable abnormalities. Note on Lorena scores and lifetime risk: 1. A Lorena score greater than 3% is considered moderate risk. If this is the case, consider specialist referral to assess eligibility for a risk reducing agent. 2. If overall lifetime risk for the development of breast cancer is 20% or higher, the patient may qualify for future screening with alternating mammogram and breast MRI. [facility], , 10/02/2024 7:23 AM. Electronically signed and approved by: Donald Plascencia M.D.
--- NOTE | 2024-10-02 07:30 | BD ---
EXAMINATION TYPE: Axial Bone Density DATE OF EXAM: 10/01/2024 CLINICAL HISTORY: 59 years old Female. ICD-10 CODE: Z13.820 OSTEO , Additional History: Height: 62.5 Weight: 229 FRAX RISK QUESTIONS: Alcohol (3 or more units per day): yes Family History (Parent hip fracture): no History of Fracture in Adulthood: yes Secondary Osteoporosis: no RISK FACTORS HISTORY OF: History of bilat Wrist Fracture: yes When: newest 2 yrs.. Surgery to Wrist (right): yes When: 15 years ago MEDICATIONS: Thyroid Medications: yes Which medication: Synthroid How Lon+ years Osteoporosis Medications: no EXAM MEASUREMENTS: Bone mineral densitometry was performed using the [employer] System. Bone mineral density as measured about the Lumbar spine is: ----- L1-L4(G/cm2): 0.866 T Score Values are as follows: ----- L1: -1.7 ----- L2: -3.5 ----- L3: -3.2 ----- L4: -2.3 ----- L1-L4: -2.6 Z Score Values are as follows: ----- L1: -1.7 ----- L2: -3.5 ----- L3: -3.2 ----- L4: -2.3 ----- L1-L4: -2.6 Bone mineral density baseline Bone mineral density about the R hip (g/cm2): 0.898 Bone mineral density about the L hip (g/cm2): 0.903 T Score values are as follows: -----R Neck: -1.2 -----L Neck: -1.1 -----R Total: -0.9 -----L Total: -0.8 Z Score values are as follows: -----R Neck: -0.7 -----L Neck: -0.6 -----R Total: -0.8 -----L Total: -0.8 Bone mineral density baseline FRAX%s: The graph provided illustrates a 13.0% chance for a major osteoporotic fx and a 1.1% chance f or the hips probability for fx in 10 years time. IMPRESSION: Osteoporosis (T Score less than -2.5). There is increased fracture risk and therapy is usually indicated based on age. Re-Screen 1-2 years. NOTE: T-SCORE=SD OF THE YOUNG ADULT MEAN. [facility], , 10/02/2024 7:28 AM
== END | disposition home or self-care (01) ==
LOC: RADMAMWWP 04-30 14:52
PROVIDERS: ATTEND Student in an Organized Health Care Education/Training Program
DX: Z12.31 Encounter for screening mammogram for malignant neoplasm of breast (principal); Z13.820 Encounter for screening for osteoporosis; R92.323 Mammographic fibroglandular density, bilateral breasts; M81.0 Age-related osteoporosis without current pathological fracture; Z78.0 Asymptomatic menopausal state; Z92.0 Personal history of contraception
CPT/HCPCS: 77063; 77067; 77080